=== PATIENT | male | born 1975 | race Caucasian/White ===

== ENCOUNTER 2025-06-16 10:17 | Outpatient (CLI) | payer OTHER, SELFPAY ==
[2025-06-16 10:59] VITALS: BP 85/59; PULSE 69; RESP 16; TEMP 36.8; O2SAT 100; BMI 31.1
[2025-06-16] MEDS: NORMAL SALINE 0.9% IV (11:27)
[2025-06-16] MEDS: ORITAVANCIN DIPHOSPHATE IV (11:27)
--- OUTSIDE RECORDS SUMMARY | 2025-06-16 11:28 | XMS RPT_ITS | CCD ---
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 Name Role Phone Kev Walker MD Unavailable Unavailable Amalia Loo DO Unavailable Unavailab Amalia Myers Unavailable Unavailabl Kev Albert I Unavailable Unavailable None, No PCP Unavailable Unavailable Unavailable Unavailable Cyrus Recio Referring Unavailable Cyurs Recio Attending Unavailable Jam Thapa MD Unavailable Harish QIU, [place] Primary Care Provider Charity Esquivel DO Unavailable Jose Ramirez MD Unavailable KARNIB, MOHAMAD Referring Unavailable [facility] Unavailable KARNIB, MOHAMAD Referring Un[facility] Unavailable KARNIB, MOHAMAD Referring Unavailable HARISH, [facility] Primary Care Unavailable KARNIB, MOHAMAD Referring Unavailable HARISH, [facility] Primary Care Unavailable KARNIB, MOHAMAD Referring Unavailable HARISH, [facility] Primary Care Unavailable KARNIB, MOHAMAD Referring Unavailable [facility] Care Unavailable KARNIB, MOHAMAD Referring Unavailable HARISH, ELIZEBA Primary Care Unavailable KARNIB, MOHAMAD Referring Unavailable HARISH, ELIZEBA Primary Care Unavailable HARISH, ELIZEBA Primary Care Unavailable FELY MICHELLE Admitting Unavailable GYPSY MEIER Attending UnavailMEGAN Taylor Consulting Unavailab ZACHARY Dalton Admitting Unavailable [facility] Unavailable SCOTTY HOGAN Attending Unavailable ALEX BATISTA Consulting Unavailable KARNIB, MOHAMAD Referring Unavailable [facility] Unavailable KARNIB, MOHAMAD Referring Unavailable LOUANN MOREIRA Primary Care Unavailable SADE ROSALES Referring Unavailable SADE ROSALES Attending Unavailable Medications Current Medications Medication Drug Class(es) Dates Sig (Normalized) Sig (Original) acetaminophen 500 mg oral tablet (14 sources) Start: 01-19-2025 take 2 tablets by mouth every six hours as needed acetaminophen (TYLENOL) 500 mg tablet Take 2 tablets by mouth every 6 hours as needed for pain. 01/19/2025 Active ascorbic acid 1000 mg oral tablet (20 sources) Vitamin C Ascorbic Acid (VITAMIN C) 1,000 mg tablet Take 500 mg by mouth once daily. Active atorvastatin 40 mg oral tablet (20 sources) HMG-CoA Reductase Inhibitor Start: 01-19-2025 take 1 tablet by mouth once daily at bedtime atorvastatin (LIPITOR) 40 mg tablet Take 1 tablet by mouth daily at bedtime. 90 tablet 01/19/2025 Active Start: 12-07-2021 take 1 tablet by heber th once daily atorvastatin (LIPITOR) 20 mg tablet Indications: Lipid disorder Take 1 tablet by mouth once daily. 90 tablet 3 12/07/2021 Suspended Comment on above: Take 1 tablet by heber th once daily. chlorhexidine gluconate 40 mg/ml medicated liquid soap (7 sources) Start: 01-23-20 chlorhexidine (HIBICLENS) 4 % external liquid Apply to affected area two times a week. 236 mL 1 01/23/2020 Active Comment on above: Apply to affected ar ea two times a week. cholecalciferol 0.05 mg oral tablet (20 sources) Vitamin D take 1 tablet by mouth once daily cholecalciferol (VITAMIN D-3) 50 mcg (2,000 unit) tablet Take 2,000 Units by mouth once daily. Active CPAP (20 sources) Start: 04-06-20 CPAP Change pressure to Settings 9-13 cm H2O, increase humidity, suitable mask per pt preference (Nasal pillow mask), chin strap, head gear, humidity, heated tubing (SELENA), lifetime supplies. G47.33 CHAYO 1 Device 11 04/06/2021 Suspended Start: 04-06-2021 CPAP Change pr essure to Settings 9-13 cm H2O, increase humidity, suitable mask per pt preference (Nasal pillow mask), chin strap, head gear, humidity, heated tubing (SELENA), lifetime supplies. G47.33 CHAYO 1 Device 11 04/06/2021 Active Comment on above: Change pressure to S ettings 9-13 cm H2O, increase humidity, suitable mask per pt preference (Nasal pillow mask), chin strap, head gear, humidity, heated tubing (SELENA), lifetime supplies. G47.33 CHAYO empagliflozin 10 mg oral tablet (20 sources) Sodium-Glucose Cotransporter 2 Inhibitor Start: 01-21-20 take 1 tablet by mouth once daily empagliflozin (JARDIANCE) 10 mg tablet Take 1 tablet by mouth once daily. 90 tablet 01/20/2025 Active Start: 09-26-2024 End: 10-26-2024 take 1 tablet by mouth once daily at breakfast empagliflozin (JARDIANCE) 10 mg tablet Take 1 tablet by mouth daily with breakfast. 30 tablet 09/26/2024 10/26/2024 Active empagliflozin (J ARDIANCE) 25 mg tablet Take 12.5 mg by mouth daily with breakfast. Suspended gabapentin 300 mg oral capsule (14 sources) Anti-epileptic Agent Start: 01-19-2025 End: 02-18-2025 take 1 capsule by mouth every eight hours gabapentin (NEURONTIN) 300 mg capsule Take 1 capsule by mouth every 8 hours for 30 days. 90 capsule 01/19/2025 Active hydrOXYzine hydrochloride 10 mg oral tablet (14 sources) Antihistamine Start: 01-19-2025 take 1 tablet by mouth every six hours as needed hydrOXYzine HCl (ATARAX) 10 mg tablet Take 1 tablet by mouth every 6 hours as needed for anxiety or itching/rash. 01/19/2025 Active magnesium oxide 400 mg oral tablet (14 sources) Start: 01-19-2025 take 2 tablets by mouth twice daily magnesium oxide (MAG-OX) 400 mg (241.3 mg magnesium) tablet Take 2 tablets by mouth two times a day. 01/19/2025 Active melatonin 3 mg oral tablet (14 sources) Start: 01-19-2025 melatonin 3 mg tablet 2 tablets by CORPAK route daily at bedtime. 01/19/2025 Active 24 hr metoprolol succinate 50 mg extended release oral tablet (20 sources) beta-Adrenergic Manuel Start: 12-07-2021 take 1 tablet by mouth once daily metoprolol succinate ER (TOPROL XL) 50 mg 24 hr tablet Indications: Acute on chronic systolic congestive heart failure (HCC) Take 1 tablet by mouth once daily. 90 tablet 3 12/07/2021 Active Start: 08-23-2015 take 1 tablet by heber th once daily Metoprolol Tartrate 50 MG Oral Tablet TAKE 1 TABLET EVERY 12 HOURS DAILY. Quantity: 60 Refills: 3 Ordered: 23-Aug-2015 Kev Walker MD Start : 23-Aug-2015 Active Comment on above: Take 1 tablet by heber th once daily. MULTIVITAMIN-FERROU S FUMARATE-FOLIC ACID 18 MG-400 MCG TABLET (14 sources) Start: 01-20-2025 take 1 tablet by mouth once daily MULTIVITAMIN-ANANYA US FUMARATE-FOLIC ACID 18 MG-400 MCG TABLET Take 1 tablet by mouth once daily. 01/20/2025 Active MULTIVITS-MINERALS/ FA/LYCOPENE (ONE-A-DAY MEN'S ORAL) (7 sources) MULTIVITS-MINERA LS /FA/LYCOPENE (ONE-A-DAY MEN'S ORAL) Take by mouth once daily. Active MULTIVITS-MINERA LS/FA/LYCOPENE (ONE-A-DAY MEN'S ORAL) Take by mouth once daily. 0 Active Comment on above: Take by mouth once d aily. Asbdy-9-CJV-EPA-Fish Oil 1,200 (144-216) mg cap (7 sources) Start: 11-13-19 16 take 1 tablet by mouth once daily Oytsu-6-LLV-EPA-Fis h Oil 1,200 (144-216) mg cap Take 1 tablet by mouth once daily. starting 1 week after discharge 0 11/13/2015 Active Comment on above: Take 1 tablet by heber th once daily. starting 1 week after discharge oxyCODONE hydrochloride 5 mg oral tablet (7 sources) Opioid Agonist Start: 08-26-20 21 take 1 tablet by mouth every six hours as needed oxyCODONE IR (ROXICODONE) 5 mg immediate release tablet Indications: ICD (implantable cardioverter-defibr illator) in place Take 1-2 tablets by mouth every 6 hours as needed for pain. 8 tablet 08/26/2021 Active Comment on above: Take 1-2 tablets by mouth every 6 hours as needed for pain. pantoprazole 20 mg delayed release oral tablet (14 sources) Proton Pump Inhibitor Start: 01-21-20 25 take 1 tablet by mouth once daily in the morning pantoprazole DR (PROTONIX) 20 mg tablet Take 1 tablet by mouth daily at 6 am. 01/20/2025 Active microencapsulated potassium chloride 20 meq extended release oral tablet (14 sources) Start: 01-21-20 take 1 tablet by mouth once daily potassium chloride ER (KLOR-CON) 20 mEq tablet Take 1 tablet by mouth once daily. 01/20/2025 Active sacubitril 97 mg / valsartan 103 mg oral tablet (20 sources) Angiotensin 2 Receptor Manuel Start: 10-17-19 take 1 tablet by mouth twice daily sacubitril-valsarta n (ENTRESTO) 97-103 mg tablet Indications: Acute on chronic systolic congestive heart failure (HCC) Take 1 tablet by mouth two times a day. Hold until you follow up with cardiology. Patient should start on October 17, 2024. 60 tablet 11 10/17/2024 Active Start: 10-17-2024 take 1 tablet by heber th twice daily sacubitril-valsartan (ENTRESTO) 97-103 mg tablet Indications: Acute on chronic systolic congestive heart failure (HCC) Take 1 tablet by mouth two times a day. Hold until you follow up with cardiology. Patient should start on October 17, 2024. 60 tablet 11 10/17/2024 Active Start: 12-07-2021 take 1 tablet by heber th twice daily sacubitril-valsartan (ENTRESTO) 97-103 mg tablet Indications: Acute on chronic systolic congestive heart failure (HCC) Take 1 tablet by mouth twice daily. 60 tablet 11 12/07/2021 Active take 1 tablet by heber th twice daily sacubitril-valsartan (ENTRESTO) 49-51 mg tablet Take 1 tablet by mouth two times a day. Suspended Comment on above: Take 1 tablet by heber th twice daily. sennosides, prison 8.6 mg oral tablet (14 sources) Start: 01-21-20 take 1 tablet by mouth once daily senna (SENOKOT) 8.6 mg tab Take 1 tablet by mouth once daily. 01/20/2025 Active simethicone 80 mg chewable tablet (14 sources) Start: 01-20-20 take 1 tablet by mouth every twelve hours as needed simethicone, chewable (MYLICON) 80 mg chewable tablet Take 1 tablet by mouth two times a day as needed (gas). 01/19/2025 Active spironolactone 50 mg oral tablet (20 sources) Aldosterone Antagonist Start: 01-21-20 take 1 tablet by mouth once daily spironolactone (ALDACTONE) 50 mg tablet Take 1 tablet by mouth once daily. 90 tablet 01/20/2025 Active Start: 10-17-2024 take 1 tablet by heber th once daily spironolactone (ALDACTONE) 25 mg tablet Take 1 tablet by mouth once daily. Hold until you follow up with cardiology Patient should start on October 17, 2024. 30 tablet 6 10/17/2024 Active Start: 10-17-2024 take 1 tablet by heber th once daily spironolactone (ALDACTONE) 25 mg tablet Take 1 tablet by mouth once daily. Hold until you follow up with cardiology Patient should start on October 17, 2024. 30 tablet 6 10/17/2024 Active Start: 11-25-2021 take 1 tablet by heber th once daily spironolactone (ALDACTONE) 25 mg tablet Take 1 tablet by mouth once daily. 30 tablet 6 11/25/2021 Active Comment on above: Take 1 tablet by heber th once daily. tamsulosin hydrochloride 0.4 mg oral capsule (14 sources) alpha-Adrenergic Manuel Start: 01-21-20 take 1 capsule by mouth once daily tamsulosin (FLOMAX) 0.4 mg Take 1 capsule by mouth once daily. 90 capsule 01/20/2025 Active torsemide 20 mg oral tablet (20 sources) Loop Diuretic Start: 09-26-19 End: 10-26-19 25 take 1 tablet by mouth once daily torsemide (DEMADEX) 20 mg tablet Take 1 tablet by mouth once daily. 30 tablet 09/26/2024 10/26/2024 Active traZODone hydrochloride 150 mg oral tablet (14 sources) Serotonin Reuptake Inhibitor Start: 01-20-20 25 take 0.5 tablet by mouth once daily at bedtime traZODone (DESYREL) 150 mg tablet Take 0.5 tablets by mouth daily at bedtime. 01/19/2025 Active valsartan 40 mg oral tablet (14 sources) Angiotensin 2 Receptor Manuel Start: 01-20-20 25 take 0.5 tablet by mouth twice daily valsartan (DIOVAN) 40 mg tablet Take 0.5 tablets by mouth two times a day. 90 tablet 01/19/2025 Active vitamin b12 1 mg oral tablet (20 sources) Vitamin B12 take 1 tablet by mouth once daily cyanocobalamin (VITAMIN B-12) 1,000 mcg tab Take 1,000 mcg by mouth once daily. Active warfarin sodium 4 mg oral tablet (14 sources) Vitamin K Antagonist Start: 01-20-20 take 1 tablet by mouth once daily warfarin (COUMADIN) 4 mg tablet Take 1 tablet by mouth daily as directed. 01/19/2025 Active zinc oxide 130 mg/ml topical cream (14 sources) Start: 01-20-20 End: 02-19-20 zinc oxide (DESITIN) 13 % cream Apply to affected area two times a day. 57 g 01/19/2025 Active Completed/Discontinued Medications Medication Drug Class(es) Dates Sig (Normalized) Sig (Original) amiodarone hydrochloride 200 mg oral tablet (20 sources) Antiarrhythmic Start: 10-06-2024 End: 11-09-2024 take 2 tablets by mouth once daily, then take 1 tablet by mouth once daily amiodarone (PACERONE) 200 mg tablet Take 2 tablets by mouth once daily for 4 days, THEN 1 tablet once daily. 38 tablet 10/06/2024 10/31/2024 Discontinued Start: 09-26-2024 End: 11-09-2024 take 1 tablet by mouth twice daily, then take 1 tablet by mouth once daily, then take 0.5 tablet by mouth once daily Amiodarone HCl 400 mg tablet Take 1 tablet by mouth two times a day for 7 days, THEN 1 tablet once daily for 7 days, THEN 0.5 tablets once daily. 36 tablet 09/26/2024 11/09/2024 Active take 1 tablet by heber th once daily amiodarone (PACERONE) 200 mg tablet Take 200 mg by mouth once daily. Active apixaban 5 mg oral tablet (20 sources) Factor Xa Inhibitor Start: 09-23-2024 End: 10-26-2024 take 1 tablet by mouth twice daily apixaban (ELIQUIS) 5 mg tab(s) Take 1 tablet by mouth two times a day. 60 tablet 09/23/2024 10/26/2024 Suspended aspirin 81 mg delayed release oral tablet (20 sources) Platelet Aggregation Inhibitor, Nonsteroidal Anti-inflammatory Drug Start: 10-30-2016 take 1 tablet by mouth once daily aspirin, enteric coated (ECOTRIN LOW STRENGTH) 81 mg EC tablet Take 1 tablet by mouth once daily. 0 10/30/2016 Active Start: 08-23-2015 take 1 tablet by heber th once daily Aspirin 325 MG Oral Tablet TAKE 1 TABLET DAILY. Quantity: 90 Refills: 3 Ordered: 23-Aug-2015 Kev Walker MD Start : 23-Aug-2015 Active take 1 tablet by heber th once daily aspirin 81 mg chewable tablet Take 81 mg by mouth once daily. Active Comment on above: Take 1 tablet by heber th once daily. 250 ml DOBUTamine 4 mg/ml injection (4 sources) beta-Adrenergic Agonist Start: 5 End: DOBUTamine (DOBUTREX) 1,000 mg/250 mL (4,000 mcg/mL) infusion Inject 322.25 mcg/min intravenously continuous. 10/05/2024 10/31/2024 Discontinued midodrine hydrochloride 5 mg oral tablet (4 sources) alpha-Adrenergic Agonist Start: 5 End: midodrine (PROAMITINE) 5 mg tablet Take 1 tablet by mouth three times a day. Every 4 hours 10/05/2024 10/31/2024 Discontinued multivit-minerals/foli c acid (CENTRUM ADULTS ORAL) (17 sources) take 1 tablet by mouth once daily multivit-minerals/fol ic acid (CENTRUM ADULTS ORAL) Take 1 tablet by mouth once daily. Suspended 60 actuat testosterone 20.25 mg/actuat topical gel (2 sources) Androgen Start: 4 AndroGel Pump 20.25 MG/ACT (1.62%) Transdermal Gel Quantity: 0 Refills: 0 Ordered: 14-Aug-2014 DO Start : 14-Aug-2014 Active prescribed by urologist zolpidem tartrate 10 mg oral tablet (2 sources) gamma-Aminobutyri c Acid-ergic Agonist Start: 6 take 1 tablet by mouth once daily at bedtime as needed Zolpidem Tartrate 10 MG Oral Tablet TAKE ONE TABLET BY MOUTH NIGHTLY AT BEDTIME NEEDED Quantity: 30 Refills: 0 Ordered: 13-Dec-2015 Amalia Loo DO Start : 13-Dec-2015 Active Problems Active Problems Problem Classification Problem Date Documented Da te Episodic/Chronic Cardiac dysrhythmias (20 sources) Atrial fibrillation with rapid ventricular response; Translations: [Unspecified atrial fibrillation] Onset: 09-22-2024 Resolved: 12-04-2024 09-22-2024 Chronic Cardiac dysrhythmias (2 sources) Palpitations; Translations: [Palpitations] Episodic Chronic kidney disease (20 sources) Chronic kidney disease stage 3; Translations: [Stage 3 chronic kidney disease] Onset: 10-06-2024 Resolved: 12-15-2024 10-07-2024 Chronic Chronic ulcer of skin (14 sources) Skin ulcer; Translations: [Non-pressure chronic ulcer of back with unspecified severity] Onset: 12-29-2024 12-30-2024 Chronic Conduction disorders (20 sources) Automatic implantable cardiac defibrillator in situ; Translations: [Presence of automatic (implantable) cardiac defibrillator] Onset: 09-22-2024 Resolved: 11-17-2024 09-22-2024 Chronic Congestive heart failure; nonhypertensive (20 sources) Acute on chronic combined systolic and diastolic heart failure; Translations: [Acute on chronic combined systolic (congestive) and diastolic (congestive) heart failure] Onset: 09-22-2024 Resolved: 11-24-2024 09-22-2024 Chronic Coronary atherosclerosis and other heart disease (16 sources) Ischemic myocardial dysfunction; Translations: [Ischemic cardiomyopathy] Onset: 12-22-2024 12-22-2024 Chronic Deficiency and other anemia (17 sources) Anemia; Translations: [Anemia in stage 3b chronic kidney disease (HCC)] Onset: 11-29-2024 Resolved: 12-15-2024 11-30-2024 Chronic Deficiency and other anemia (2 sources) Anemia; Translations: [Anemia, unspecified] Episodic Disorders of lipid metabolism (20 sources) Mixed hyperlipidemia; Translations: [Mixed hyperlipidemia] Onset: 11-25-2021 Resolved: 12-15-2024 11-25-2021 Chronic Essential hypertension (20 sources) Hypertensive disorder; Translations: [Essential (primary) hypertension] Onset: 11-10-2015 09-19-2021 Chronic Heart valve disorders (20 sources) Aortic valve disorder; Translations: [Aortic valve disorders] Onset: 11-10-2015 10-04-2021 Chronic Miscellaneous mental health disorders (2 sources) Insomnia; Translations: [Transient disorder of initiating or maintaining sleep] Chronic Nutritional deficiencies (17 sources) Deficiency of macronutrients; Translations: [Unspecified severe protein-calorie malnutrition] Onset: 12-04-2024 12-05-2024 Chronic Open wounds of extremities (3 sources) Laceration of hand; Translations: [Open wound of hand except finger(s) alone, without mention of complication] Resolved: 08-23-2015 Episodic Other aftercare (17 sources) Under care of palliative care physician; Translations: [Encounter for palliative care] Onset: 10-23-2024 10-23-2024 Episodic Other circulatory disease (20 sources) Left ventricular assist device present; Translations: [Presence of heart assist device] Onset: 11-16-2024 11-17-2024 Chronic Other endocrine disorders (20 sources) Male hypogonadism; Translations: [Testicular hypofunction] Onset: 01-23-2020 01-23-2020 Chronic Other gastrointestinal disorders (20 sources) Ileostomy present; Translations: [Ileostomy status] Onset: 11-13-2024 11-13-2024 Chronic Other nutritional; endocrine; and metabolic disorders (18 sources) Morbid obesity; Translations: [Morbid (severe) obesity due to excess calories] Onset: 09-23-2024 10-13-2024 Chronic Other nutritional; endocrine; and metabolic disorders (20 sources) Obese class I; Translations: [Obesity, Class I, BMI 30-34.9] Onset: 09-23-2024 Resolved: 12-15-2024 11-05-2024 Chronic Residual codes; unclassified (20 sources) Obstructive sleep apnea syndrome; Translations: [Obstructive sleep apnea (adult) (pediatric)] Onset: 11-25-2021 Resolved: 11-19-2024 11-25-2021 Chronic Unclassified (1 source) NO SHOW 03-17-2025 Past or Other Problems Problem Classification Problem Date Documented Da te Episodic/Chronic Acute and unspecified renal failure (20 sources) Acute renal failure syndrome; Translations: [Acute kidney failure, unspecified] Onset: Resolved: 09-22-2024 Episodic Acute posthemorrhagic anemia (20 sources) Acute posthemorrhagic anemia; Translations: [Acute posthemorrhagic anemia] Onset: 5 Resolved: 5 11-17-2024 Episodic Administrative/social admission (20 sources) Discharge status; Translations: [Other problems related to medical facilities and other health care] Onset: 6 Resolved: 8 09-19-2021 Episodic Alcohol-related disorders (20 sources) History of alcohol abuse; Translations: [Alcohol abuse, in remission] Onset: 5 Resolved: 5 10-05-2024 Chronic Bacterial infection; unspecified site (20 sources) Bacteremia; Translations: [Bacteremia] Onset: 5 Resolved: 5 12-03-2024 Episodic Cardiac and circulatory congenital anomalies (20 sources) Bicuspid aortic valve; Translations: [Congenital insufficiency of aortic valve] Resolved: 6 11-13-2015 Chronic Cardiac and circulatory congenital anomalies (20 sources) H/O: cardiac anomaly; Translations: [Personal history of (corrected) congenital malformations of heart and circulatory system] Onset: 6 Resolved: 5 01-23-2020 Episodic Cardiac arrest and ventricular fibrillation (20 sources) Cardiac arrest; Translations: [Cardiac arrest, cause unspecified] Onset: 5 Resolved: 5 10-22-2024 Chronic Coagulation and hemorrhagic disorders (20 sources) Thrombocytopenic disorder; Translations: [Thrombocytopenia, unspecified] Onset: 5 Resolved: 5 11-24-2024 Chronic Complication of device; implant or graft (17 sources) Infection of vascular catheter; Translations: [Infection and inflammatory reaction due to other cardiac and vascular devices, implants and grafts, initial encounter] Onset: 5 Resolved: 5 11-30-2024 Episodic Complications of surgical procedures or medical care (16 sources) Postprocedural abscess; Translations: [Infection following a procedure, other surgical site, initial encounter] Onset: 5 12-23-2024 Episodic Deficiency and other anemia (18 sources) Anemia due to multiple mechanisms; Translations: [Other specified anemias] Onset: 5 Resolved: 5 10-23-2024 Episodic Delirium, dementia, and amnestic and other cognitive disorders (20 sources) Delirium; Translations: [Delirium due to known physiological condition] Onset: 5 Resolved: 5 11-20-2024 Chronic Diabetes mellitus without complication (20 sources) Hyperglycemia; Translations: [Other abnormal glucose] Onset: 5 Resolved: 5 11-16-2024 Episodic Diseases of white blood cells (20 sources) Neutrophilia; Translations: [Other elevated white blood cell count] Onset: 4 Resolved: 5 09-22-2024 Chronic Fluid and electrolyte disorders (20 sources) Hyponatremia; Translations: [Hypo-osmolality and hyponatremia] Onset: 6 Resolved: 5 09-22-2024 Episodic Hypertension with complications and secondary hypertension (20 sources) Cardiorenal syndrome; Translations: [Hypertensive heart and chronic kidney disease without heart failure, with stage 1 through stage 4 chronic kidney disease, or unspecified chronic kidney disease] Onset: 5 Resolved: 5 10-20-2024 Chronic Nonspecific chest pain (20 sources) Chest pain; Translations: [Chest pain, unspecified] Onset: 6 Resolved: 8 11-30-2017 Episodic Open wounds of head; neck; and trunk (20 sources) Injury of buttock; Translations: [Unspecified open wound of unspecified buttock, initial encounter] Onset: 5 Resolved: 5 11-24-2024 Episodic Other aftercare (20 sources) Drug therapy finding; Translations: [Other longterm (current) drug therapy] Onset: 5 Resolved: 5 10-13-2024 Episodic Other aftercare (17 sources) Long-term current use of anticoagulant; Translations: [shelter (current) use of anticoagulants] Onset: 5 12-09-2024 Episodic Other circulatory disease (20 sources) Low blood pressure; Translations: [Hypotension, unspecified] Onset: 5 Resolved: 5 10-06-2024 Episodic Other gastrointestinal disorders (20 sources) Swollen abdomen; Translations: [Abdominal distension (gaseous)] Onset: 4 Resolved: 5 09-22-2024 Episodic Other gastrointestinal disorders (20 sources) Drug-induced constipation; Translations: [Drug induced constipation] Onset: 5 Resolved: 5 10-28-2024 Episodic Other gastrointestinal disorders (20 sources) Perforation of intestine; Translations: [Perforation of intestine (nontraumatic)] Onset: 5 Resolved: 5 11-10-2024 Episodic Other gastrointestinal disorders (20 sources) Oropharyngeal dysphagia; Translations: [Dysphagia, oropharyngeal phase] Onset: 5 Resolved: 5 11-21-2024 Episodic Other hematologic conditions (20 sources) Hematocrit - PCV - high; Translations: [Other abnormality of red blood cells] Onset: 0 Resolved: 5 06-10-2020 Episodic Other injuries and conditions due to external causes (20 sources) Open wound; Translations: [Other injury of unspecified body region, initial encounter] Onset: 5 Resolved: 5 11-22-2024 Episodic Other lower respiratory disease (20 sources) Dyspnea; Translations: [Shortness of breath] Onset: 4 Resolved: 5 09-22-2024 Episodic Other lower respiratory disease (20 sources) Snoring; Translations: [Snoring] Onset: 6 Resolved: 0 01-23-2020 Episodic Other lower respiratory disease (20 sources) Respiratory insufficiency; Translations: [Other disorders of lung] Onset: 5 Resolved: 5 11-19-2024 Episodic Other lower respiratory disease (1 source) Shortness of breath; Translations: [Shortness of breath] Onset: 5 Episodic Other nervous system disorders (20 sources) Acute postoperative pain; Translations: [Other acute postprocedural pain] Onset: 6 Resolved: 5 09-19-2021 Episodic Other nutritional; endocrine; and metabolic disorders (20 sources) Body mass index 40+ - severely obese; Translations: [Morbid (severe) obesity due to excess calories] Onset: 4 Resolved: 5 09-23-2024 Chronic Other nutritional; endocrine; and metabolic disorders (20 sources) Hyperphosphatemia; Translations: [Other disorders of phosphorus metabolism] Onset: 5 Resolved: 5 10-23-2024 Chronic Other nutritional; endocrine; and metabolic disorders (20 sources) Obese class II; Translations: [Obesity, Class II, BMI 35-39.9] Onset: 5 Resolved: 5 11-03-2024 Chronic Other screening for suspected conditions (not mental disorders or infectious disease) (20 sources) Decreased testosterone level ; Translations: [Other nonspecific findings on examination of blood] Onset: 6 Resolved: 5 09-22-2024 Episodic Lynn-; endo-; and myocarditis; cardiomyopathy (except that caused by tuberculosis or sexually transmitted disease) (20 sources) Cardiomyopathy; Translations: [Other cardiomyopathies] Onset: 2 Resolved: 5 11-25-2021 Chronic Lynn-; endo-; and myocarditis; cardiomyopathy (except that caused by tuberculosis or sexually transmitted disease) (20 sources) Pericardial effusion - noninflammatory; Translations: [Pericardial effusion (noninflammatory)] Onset: 6 Resolved: 8 11-30-2017 Episodic Peripheral and visceral atherosclerosis (20 sources) Mesenteric infarction; Translations: [Acute infarction of intestine, part and extent unspecified] Onset: 5 Resolved: 5 11-04-2024 Episodic Phlebitis; thrombophlebitis and thromboembolism (17 sources) Acute deep venous thrombosis; Translations: [Acute embolism and thrombosis of unspecified vein] Onset: 5 12-05-2024 Episodic Pleurisy; pneumothorax; pulmonary collapse (20 sources) Atelectasis; Translations: [Atelectasis] Onset: 6 Resolved: 5 09-19-2021 Episodic Residual codes; unclassified (20 sources) Sleep apnea; Translations: [Sleep apnea, unspecified] Onset: 6 Resolved: 5 07-31-2016 Chronic Residual codes; unclassified (20 sources) Hypersomnia; Translations: [Hypersomnia, unspecified] Onset: 6 Resolved: 5 07-31-2016 Chronic Residual codes; unclassified (20 sources) History of aortic valve repair; Translations: [Other specified postprocedural states] Onset: 6 Resolved: 5 07-25-2016 Episodic Residual codes; unclassified (20 sources) Edema of lower extremity; Translations: [Localized edema] Onset: 4 Resolved: 5 09-22-2024 Episodic Residual codes; unclassified (20 sources) Generalized aches and pains; Translations: [Pain, unspecified] Onset: 5 Resolved: 5 10-28-2024 Episodic Residual codes; unclassified (20 sources) 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; Translations: [Personal history of extracorporeal membrane oxygenation (ECMO)] Onset: 5 Resolved: 5 11-16-2024 Episodic Respiratory failure; insufficiency; arrest (adult) (20 sources) Ventilator finding; Translations: [Dependence on respirator [ventilator] status] Onset: 6 Resolved: 5 09-19-2021 Chronic Shock (20 sources) Cardiogenic shock; Translations: [Cardiogenic shock] Onset: 5 Resolved: 5 10-05-2024 Episodic Unclassified (20 sources) SUMMARY Onset: 6 Resolved: 8 09-19-2021 NEGATED: Highlighted row has not occurred!Residual codes; unclassified (1 source) Disease Episodic Results Test Name Value Interpretation Reference Range Facility [facility] 06-12-2025 [facility] [place] 06-10-2025 [facility] [place] 06-08-2025 [facility] [place] 06-05-2025 [facility] [place] 06-03-2025 [facility] [place] 06-01-2025 [facility] [place] 05-29-2025 [facility] [place] 05-27-2025 [facility] CNOVon 05-22-2025 [facility] CNOVon 05-12-2025 [facility] CNPNon 04-14-2025 [facility] CARDIAC IMPLANTABLE DEVICE C HECKOrdered By: Gissell Yeh on 12-27-2024 Battery Remaining Percentage 62 [facility] Work Phone: Battery Status SULMA [facility] Work Phone: Date Time Interrogation Session [phone] [facility] Work Phone: Implantable Lead Connection Status Connected [facility] Work Phone: Implantable Lead Implant Date [id number] [facility] Work Phone: Implantable Lead Er [employer] [facility] Work Phone: Implantable Lead Model 3501 EMBLEM S-ICD Electrode [facility] Work Phone: Implantable Lead Serial Number [id number] [facility] Work Phone: Implantable Pulse Generator Implant Date 20210826 [facility] Work Phone: Implantable Pulse Generator [employer] [facility] Work Phone: Implantable Pulse Generator Model A219 [facility] Work Phone: Implantable Pulse Generator Serial Number [id number] [facility] Work Phone: Implantable Pulse Generator Type Defibrillator [facility] Work Phone: Rate 1 200 [facility] Work Phone: Therapies 80J [facility] Work Phone: Therapy Statistic Recent Shocks Delivered 0 [facility] Work Phone: Type Interrogation Session In Clinic [facility] Work Phone: Zone ID 2 [facility] Work Phone: Zone Setting Status On [facility] Work Phone: Zone Setting Type Category Conditional [facility] Work Phone: [facility] Work Phone: CARDIAC IMPLANTABLE DEVICE Lou Sofia 12-27-2024 Perioperative Check * Post-operative device interrogation performed * Device reprogrammed: Y Additional Notes: ICD turned back ON NOTE TO PROVIDERS: Cardiac Implanted Devices" Flowsheets contain detailed Programming and Evaluation data. Full Docket/PDF found below under "Scanned Documents". Gissell Baxter MD - 12/27/2024 Perioperative Check * Post-operative device interrogation performed * Device reprogrammed: Y Additional Notes: ICD turned back ON NOTE TO PROVIDERS: Cardiac Implanted Devices" Flowsheets contain detailed Programming and Evaluation data. Full Docket/PDF found below under "Scanned Documents". [facility] XR SURGICAL COUNTon 11-06-19 IMPRESSION: No radiopaque foreign bodies identified. COMMUNICATION: Communicated with RONNI HANCOCK on 11/06/2024 5:44 PM via verbal communication. [employer] Planner: PSCSelena Transcribe Date/Time: Nov 06 2024 5:36P Dictated by : EDDY BLANKENSHIP MD This examination was interpreted and the report reviewed and electronically signed by: EDDY BLANKENSHIP MD on Nov 06 2024 5:44PM [facility] * * *Final Report* * * DATE OF EXAM: Nov 06 2024 5:34PM JIX 5393 - XR SURGICAL COUNT -NB / PROCEDURE REASON: r/o fb * * * * Physician Interpretation * * * * EXAMINATION: XR SURGICAL COUNT -NB HISTORY: r/o fb. TECHNIQUE: XR SURGICAL COUNT -NB Laterality: Not applicable Number of different views (projections): 1 M: XB_1 COMPARISON: None RESULT/ DIVISION OF RADIOLOGY Provider, [facility] - 11/06/2024 * * *Final Report* * * DATE OF EXAM: Nov 06 2024 5:34PM JIX 5393 - XR SURGICAL COUNT -NB / PROCEDURE REASON: r/o fb * * * * Physician Interpretation * * * * EXAMINATION: XR SURGICAL COUNT -NB HISTORY: r/o fb. TECHNIQUE: XR SURGICAL COUNT -NB Laterality: Not applicable Number of different views (projections): 1 M: XB_1 COMPARISON: None RESULT/ IMPRESSION IMPRESSION: No radiopaque foreign bodies identified. COMMUNICATION: Communicated with RONNI HANCOCK on 11/06/2024 5:44 PM via verbal communication. [employer] Planner: PSCSelena Transcribe Date/Time: Nov 06 2024 5:36P Dictated by : EDDY BLANKENSHIP MD This examination was interpreted and the report reviewed and electronically signed by: EDDY BLANKENSHIP MD on Nov 06 2024 5:44PM EST [facility] Radiology Study observation (narrative) [facility] XR SURGICAL COUNTOrdered By: Ccf Provider on 11-06-2024 [facility] CARDIAC IMPLANTABLE DEVICE C HECKOrdered By: Sandro Resendiz on 10-31-2024 Battery Remaining Percentage 64 [facility] Work Phone: Battery Status SULMA [facility] Work Phone: Date Time Interrogation Session [facility] Work Phone: Implantable Lead Connection Status Connected [facility] Work Phone: Implantable Lead Implant Date [id number] [facility] Work Phone: Implantable Lead Er [employer] [facility] Work Phone: Implantable Lead Model 3501 EMBLEM S-ICD Electrode [facility] Work Phone: Implantable Lead Serial Number [id number] [facility] Work Phone: Implantable Pulse Generator Implant Date 20210826 [facility] Work Phone: Implantable Pulse Generator [employer] [facility] Work Phone: Implantable Pulse Generator Model A219 [facility] Work Phone: Implantable Pulse Generator Serial Number [id number] [facility] Work Phone: Implantable Pulse Generator Type Defibrillator [facility] Work Phone: Rate 1 200 [facility] Work Phone: Therapies 80J [facility] Work Phone: Therapy Statistic Recent Shocks Delivered 0 [facility] Work Phone: Type Interrogation Session In Clinic [facility] Work Phone: Zone ID 2 [facility] Work Phone: Zone Setting Status On [facility] Work Phone: Zone Setting Type Category Conditional [facility] Work Phone: [facility] Work Phone: CARDIAC IMPLANTABLE DEVICE Lou Sofia 10-31-2024 Sandro Resendiz M D - 10/31/2024 In-Office Device Evaluation * Device type: S-ICD at bedside J32 * Presenting Rhythm: AF controlled VR * Battery Status: Battery is at Battery is at 64%. * Atrial Arrhythmias: Frequent irregular episodes; strips and live tele indicated AF. . Anticoagulants listed: Eliquis recently started for home meds per patient. * Ventricular Arrhythmias: No new V detections in the last 11 months since interrogated. * Lead Measurements: Lead impedance normal. ECG waveform clean with good R:T ratio. * Programming Changes Made Today: None * Follow Up[facility] NOTE TO PROVIDERS: Cardiac Implanted Devices" Flowsheets contain detailed Programming and Evaluation data. Full Docket/PDF found below under "Scanned Documents". [facility] CASE MANAGEMon 10-05-2024 CASE MANAGEM Normal [facility] CBC panel Auto (Bld)on 10-05 Erythrocyte distribution width (RBC) [Ratio] 13.2 % Normal 11.5-15.0 [facility] Comment on above: Order Comment: Speci men Type: BLOOD SPECIMENOrdering Facility: [facility] Address: [address] [place] [address] Performed By: #### 5 8410-2 ####HOLT LABORATORYCLIA [id number] [place] [address] [place] Hematocrit (Bld) [Volume fraction] 41.3 % Normal 39.0-51.0 [facility] Comment on above: Order Comment: Speci men Type: BLOOD SPECIMENOrdering Facility: [facility] Address: [address] [place] [address] Performed By: #### 5 8410-2 ####HOLT LABORATORYCLIA [id number] [address] Hemoglobin (Bld) [Mass/Vol] 13.5 g/dL Normal 13.0-17.0 [facility] Comment on above: Order Comment: Speci men Type: BLOOD SPECIMENOrdering Facility: [facility] Address: [address] [place] [address] Performed By: #### 5 8410-2 ####HOLT LABORATORYCLIA [id number] [address] MCH (RBC) [Entitic mass] 30.4 pg Normal 26.0-34.0 [facility] Comment on above: Order Comment: Speci men Type: BLOOD SPECIMENOrdering Facility: [facility] Address: [address] [place] [address] Performed By: #### 5 8410-2 ####HOLT LABORATORYCLIA [id number] [address] MCHC (RBC) [Mass/Vol] 32.7 g/dL Normal 30.5-36.0 [facility] Comment on above: Order Comment: Speci men Type: BLOOD SPECIMENOrdering Facility: [facility] Address: [address] [place] [address] Performed By: #### 5 8410-2 ####HOLT LABORATORYCLIA [id number] [address] MCV (RBC) [Entitic vol] 93.0 fL Normal 80.0-100.0 [facility] Comment on above: Order Comment: Speci men Type: BLOOD SPECIMENOrdering Facility: [facility] Address: [address] [place] [address] Performed By: #### 5 8410-2 ####HOLT LABORATORYCLIA [id number] [address] Nucleated RBC (Bld) [#/Vol] 10*3/uL Normal <0.01 [facility] Comment on above: Order Comment: Speci men Type: BLOOD SPECIMENOrdering Facility: [facility] Address: [address] [place] [address] Performed By: #### 5 8410-2 ####HOLT LABORATORYCLIA [id number] [place] [id number] [place] Platelet mean volume (Bld) [Entitic vol] 11.8 fL Normal 9.0-12.7 [facility] Comment on above: Order Comment: Speci men Type: BLOOD SPECIMENOrdering Facility: [facility] Address: [address] [place] [address] Performed By: #### 5 8410-2 ####HOLT LABORATORYCLIA [id number] [place] [address] [place] Platelets (Bld) [#/Vol] 172 10*3/uL Normal 150-400 [facility] Comment on above: Order Comment: Speci men Type: BLOOD SPECIMENOrdering Facility: [facility] Address: [address] [place] [address] Performed By: #### 5 8410-2 ####[facility] LABORATORYCLIA [id number] [place] [address] [place] RBC (Bld) [#/Vol] 4.44 10*6/uL Normal 4.20-6.00 [facility] Comment on above: Order Comment: Speci men Type: BLOOD SPECIMENOrdering Facility: [facility] Address: [address] [place] [address] Performed By: #### 5 8410-2 ####[facility] LABORATORYCLIA [id number] [place] [address] [place] WBC (Bld) [#/Vol] 8.43 10*3/uL Normal 3.70-11.00 [facility] Comment on above: Order Comment: Speci men Type: BLOOD SPECIMENOrdering Facility: [facility] Address: [address] [place] [address] Performed By: #### 5 8410-2 ####HOLT LABORATORYCLIA [id number] [place] [id number] [facility] [place] CNDSon 10-05-2024 CNDS [facility] CONSULT PROGon 10-05-2024 CONSULT PROG [facility] Comprehensive metabolic 2000 panelon 10-05-2024 Albumin [Mass/Vol] 4.1 g/dL Normal 3.9-4.9 [facility] Comment on above: Order Comment: Speci men Type: BLOOD SPECIMENOrdering Facility: [facility] Address: [address] [place] [address] Performed By: #### 2 4323-8 ####HOLT LABORATORYCLIA [id number] [place] [address] [place] ALP [Catalytic activity/Vol] 68 U/L Normal 38-113 [facility] Comment on above: Order Comment: Speci men Type: BLOOD SPECIMENOrdering Facility: [facility] Address: [address] [place] [address] Performed By: #### 2 4323-8 ####HOLT LABORATORYCLIA [id number] [address] [place] ALT [Catalytic activity/Vol] 19 U/L Normal 10-54 [facility] Comment on above: Order Comment: Speci men Type: BLOOD SPECIMENOrdering Facility: [facility] Address: [address] [place] [address] Performed By: #### 2 4323-8 ####HOLT LABORATORYCLIA [id number] [place] [address] [place] Anion gap [Moles/Vol] 17 mmol/L High 8-15 [facility] Comment on above: Order Comment: Speci men Type: BLOOD SPECIMENOrdering Facility: [facility] Address: [address] [place] [address] Performed By: #### 2 4323-8 ####HOLT LABORATORYCLIA [id number] [place] [address] [place] AST [Catalytic activity/Vol] 26 U/L Normal 14-40 [facility] Comment on above: Order Comment: Speci men Type: BLOOD SPECIMENOrdering Facility: [facility] Address: [address] [place] [address] Performed By: #### 2 4323-8 ####HOLT LABORATORYCLIA [id number] [place] [address] [place] Bilirubin [Mass/Vol] 1.7 mg/dL High 0.2-1.3 [facility] Comment on above: Order Comment: Speci men Type: BLOOD SPECIMENOrdering Facility: [facility] Address: [address] [place] [address] Performed By: #### 2 4323-8 ####HOLT LABORATORYCLIA [id number] [place] [address] [place] Calcium [Mass/Vol] 9.6 mg/dL Normal 8.5-10.2 [facility] Comment on above: Order Comment: Speci men Type: BLOOD SPECIMENOrdering Facility: [facility] Address: [address] [place] [address] Performed By: #### 2 4323-8 ####HOLT LABORATORYCLIA [id number] [place] [address] [place] Chloride [Moles/Vol] 98 mmol/L Normal 98-107 [facility] Comment on above: Order Comment: Speci men Type: BLOOD SPECIMENOrdering Facility: [facility] Address: [address] [place] [address] Performed By: #### 2 4323-8 ####HOLT LABORATORYCLIA [id number] [place] [address] [place] CO2 [Moles/Vol] 21 mmol/L Low 22-30 [facility] Comment on above: Order Comment: Speci men Type: BLOOD SPECIMENOrdering Facility: [facility] Address: [address] [place] [address] Performed By: #### 2 4323-8 ####HOLT LABORATORYCLIA [id number] [place] [address] [place] Creatinine [Mass/Vol] 2.07 mg/dL High 0.73-1.22 [facility] Comment on above: Order Comment: Speci men Type: BLOOD SPECIMENOrdering Facility: [facility] Address: [address] [place] [address] Performed By: #### 2 4323-8 ####HOLT LABORATORYCLIA [id number] [place] [address] [place] Creatinine and Glomerular filtration rate.predicted panel (S/P/Bld) 39 mL/min/1.73m??? Low >=60 [facility] Comment on above: Order Comment: Sigrid zepeda Type: BLOOD SPECIMENOrdering Facility: [facility] Address: [address] [place] [id number] Result Comment: Gabby mated Glomerular Filtration Rate (eGFR) is calculated using the 2020 CKD-EPI creatinine equation. This equation utilizes serum creatinine, sex, and age as parameters. The creatinine assay has traceable calibration to isotope dilution-mass spectrometry. Refer to KDIGO guidelines for clinical interpretation. In patients with unstable renal function, e.g. those with acute kidney injury, the eGFR may not accurately reflect actual GFR. Performed By: #### 2 4323-8 ####[facility] LABORATORYCLIA [id number] [place] [id number] [place] Glucose [Mass/Vol] 121 mg/dL High 74-99 [facility] Comment on above: Order Comment: Sigrid zepeda Type: BLOOD SPECIMENOrdering Facility: [facility] Address: [address] [place] [address] Result Comment: The [place] Diabetes Association (ADA) provides guidance for cutoff values for fasting glucose and random glucose. The ADA defines fasting as no caloric intake for at least 8 hours. Fasting plasma glucose results between 100 to 125 mg/dL indicate increased risk for diabetes (prediabetes).Fasting plasma glucose results greater than or equal to 126 mg/dL meet the criteria for diagnosis of diabetes. In the absence of unequivocal hyperglycemia, results should be confirmed by repeat testing. In a patient with classic symptoms of hyperglycemia or hyperglycemic crisis, random plasma glucose results greater than or equal to 200 mg/dL meet the criteria for diagnosis of diabetes.Reference: Standards of Medical Care in Diabetes 2016, [place] [employer] Association. Diabetes Care. 2016.39(Suppl 1). Performed By: #### 2 4323-8 ####[facility] LABORATORYCLIA [id number] [place] [address] [place] Potassium [Moles/Vol] 3.9 mmol/L Normal 3.7-5.1 [facility] Comment on above: Order Comment: Sigrid zepeda Type: BLOOD SPECIMENOrdering Facility: [facility] Address: [address] [place] [id number] Performed By: #### 2 4323-8 ####HOLT LABORATORYCLIA [id number] [address] [place] [facility] Protein [Mass/Vol] 6.4 g/dL Normal 6.3-8.0 [facility] Comment on above: Order Comment: Speci men Type: BLOOD SPECIMENOrdering Facility: [facility] Address: [address] [place] [address] Performed By: #### 2 4323-8 ####HOLT LABORATORYCLIA [id number] [address] [place] Sodium [Moles/Vol] 136 mmol/L Normal 136-144 [facility] Comment on above: Order Comment: Speci men Type: BLOOD SPECIMENOrdering Facility: [facility] Address: [address] [place] [address] Performed By: #### 2 4323-8 ####HOLT LABORATORYCLIA [id number] [address] [place] Urea nitrogen [Mass/Vol] 41 mg/dL High 9-24 [facility] Comment on above: Order Comment: Speci men Type: BLOOD SPECIMENOrdering Facility: [facility] Address: [address] [place] [address] Performed By: #### 2 4323-8 ####HOLT LABORATORYCLIA [id number] [address] [place] CBC panel Auto (Bld)on 10-04 Erythrocyte distribution width (RBC) [Ratio] 13.1 % Normal 11.5-15.0 [facility] Comment on above: Order Comment: Speci men Type: BLOOD SPECIMENOrdering Facility: [facility] Address: [address] [place] [address] Performed By: #### 5 8410-2 ####HOLT LABORATORYCLIA [id number] [address] Hematocrit (Bld) [Volume fraction] 39.4 % Normal 39.0-51.0 [facility] Comment on above: Order Comment: Speci men Type: BLOOD SPECIMENOrdering Facility: [facility] Address: [address] [place], [place] [id number] Performed By: #### 5 8410-2 ####HOLT LABORATORYCLIA [id number] [address] Hemoglobin (Bld) [Mass/Vol] 13.1 g/dL Normal 13.0-17.0 [facility] Comment on above: Order Comment: Speci men Type: BLOOD SPECIMENOrdering Facility: [facility] Address: [address] [place] [address] Performed By: #### 5 8410-2 ####HOLT LABORATORYCLIA [id number] [address] MCH (RBC) [Entitic mass] 30.8 pg Normal 26.0-34.0 [facility] Comment on above: Order Comment: Speci men Type: BLOOD SPECIMENOrdering Facility: [facility] Address: [address] [place] [address] Performed By: #### 5 8410-2 ####HOLT LABORATORYCLIA [id number] [address] MCHC (RBC) [Mass/Vol] 33.2 g/dL Normal 30.5-36.0 [facility] Comment on above: Order Comment: Speci men Type: BLOOD SPECIMENOrdering Facility: [facility] Address: [address] [place] [address] Performed By: #### 5 8410-2 ####HOLT LABORATORYCLIA [id number] [address] MCV (RBC) [Entitic vol] 92.7 fL Normal 80.0-100.0 [facility] Comment on above: Order Comment: Speci men Type: BLOOD SPECIMENOrdering Facility: [facility] Address: [address] [place] [address] Performed By: #### 5 8410-2 ####HOLT LABORATORYCLIA [id number] [address] Nucleated RBC (Bld) [#/Vol] 10*3/uL Normal <0.01 [facility] Comment on above: Order Comment: Speci men Type: BLOOD SPECIMENOrdering Facility: [facility] Address: [address] [facility] [place] [address] Performed By: #### 5 8410-2 ####HOLT LABORATORYCLIA [id number] [address] [place] Platelet mean volume (Bld) [Entitic vol] 12.0 fL Normal 9.0-12.7 [facility] Comment on above: Order Comment: Speci men Type: BLOOD SPECIMENOrdering Facility: [facility] Address: [address] [place] [address] Performed By: #### 5 8410-2 ####HOLT LABORATORYCLIA [id number] [place] [address] [place] Platelets (Bld) [#/Vol] 152 10*3/uL Normal 150-400 [facility] Comment on above: Order Comment: Speci men Type: BLOOD SPECIMENOrdering Facility: [facility] Address: [address] [place] [address] Performed By: #### 5 8410-2 ####HOLT LABORATORYCLIA [id number] [place] [address] [place] RBC (Bld) [#/Vol] 4.25 10*6/uL Normal 4.20-6.00 [facility] Comment on above: Order Comment: Speci men Type: BLOOD SPECIMENOrdering Facility: [facility] Address: [address] [place] [address] Performed By: #### 5 8410-2 ####HOLT LABORATORYCLIA [id number] [place] [address] [place] WBC (Bld) [#/Vol] 8.26 10*3/uL Normal 3.70-11.00 [facility] Comment on above: Order Comment: Speci men Type: BLOOD SPECIMENOrdering Facility: [facility] Address: [address] [place] [address] Performed By: #### 5 8410-2 ####HOLT LABORATORYCLIA [id number] [address] [place] CONSULT PROGon 10-04-2024 CONSULT PROG Normal [facility] CONSULT PROG Normal [facility] Comprehensive metabolic 2000 panelon 10-04-2024 Albumin [Mass/Vol] 4.1 g/dL Normal 3.9-4.9 [facility] Comment on above: Order Comment: Speci men Type: BLOOD SPECIMENOrdering Facility: [facility] Address: [address] [place] [address] Performed By: #### 2 4323-8 ####HOLT LABORATORYCLIA [id number] [place] [address] [place] ALP [Catalytic activity/Vol] 63 U/L Normal 38-113 [facility] Comment on above: Order Comment: Speci men Type: BLOOD SPECIMENOrdering Facility: [facility] Address: [facility] [place] [address] Performed By: #### 2 4323-8 ####HOLT LABORATORYCLIA [id number] [address] [place] [facility] ALT [Catalytic activity/Vol] 20 U/L Normal 10-54 [facility] Comment on above: Order Comment: Speci men Type: BLOOD SPECIMENOrdering Facility: [facility] Address: [address] [place] [address] Performed By: #### 2 4323-8 ####HOLT LABORATORYCLIA [id number] [place] [address] [place] [facility] Anion gap [Moles/Vol] 14 mmol/L Normal 8-15 [facility] Comment on above: Order Comment: Speci men Type: BLOOD SPECIMENOrdering Facility: [facility] Address: [address] [place] [address] Performed By: #### 2 4323-8 ####HOLT LABORATORYCLIA [id number] [place] [address] [place] AST [Catalytic activity/Vol] 31 U/L Normal 14-40 [facility] Comment on above: Order Comment: Speci men Type: BLOOD SPECIMENOrdering Facility: [facility] Address: [address] [place] [address] Performed By: #### 2 4323-8 ####HOLT LABORATORYCLIA [id number] [place] [address] [place] Bilirubin [Mass/Vol] 1.4 mg/dL High 0.2-1.3 [facility] Comment on above: Order Comment: Speci men Type: BLOOD SPECIMENOrdering Facility: [facility] Address: [address] [place] [address] Performed By: #### 2 4323-8 ####HOLT LABORATORYCLIA [id number] [place] [address] [place] Calcium [Mass/Vol] 9.3 mg/dL Normal 8.5-10.2 [facility] Comment on above: Order Comment: Speci men Type: BLOOD SPECIMENOrdering Facility: [facility] Address: [address] [place] [address] Performed By: #### 2 4323-8 ####HOLT LABORATORYCLIA [id number] [place] [address] [place] Chloride [Moles/Vol] 99 mmol/L Normal 98-107 [facility] Comment on above: Order Comment: Speci men Type: BLOOD SPECIMENOrdering Facility: [facility] Address: [address] [place] [address] Performed By: #### 2 4323-8 ####HOLT LABORATORYCLIA [id number] [place] [address] [place] CO2 [Moles/Vol] 24 mmol/L Normal 22-30 [facility] Comment on above: Order Comment: Speci men Type: BLOOD SPECIMENOrdering Facility: [facility] Address: [address] [place] [address] Performed By: #### 2 4323-8 ####HOLT LABORATORYCLIA [id number] [place] [address] [place] Creatinine [Mass/Vol] 2.28 mg/dL High 0.73-1.22 [facility] Comment on above: Order Comment: Speci men Type: BLOOD SPECIMENOrdering Facility: [facility] Address: [address] [place] [address] Performed By: #### 2 4323-8 ####HOLT LABORATORYCLIA [id number] [place] [address] [place] Creatinine and Glomerular filtration rate.predicted panel (S/P/Bld) 34 mL/min/1.73m??? Low >=60 [facility] Comment on above: Order Comment: Sigrid zepeda Type: BLOOD SPECIMENOrdering Facility: [facility] Address: [address] [place] [address] Result Comment: Gabby mated Glomerular Filtration Rate (eGFR) is calculated using the 2020 CKD-EPI creatinine equation. This equation utilizes serum creatinine, sex, and age as parameters. The creatinine assay has traceable calibration to isotope dilution-mass spectrometry. Refer to KDIGO guidelines for clinical interpretation. In patients with unstable renal function, e.g. those with acute kidney injury, the eGFR may not accurately reflect actual GFR. Performed By: #### 2 4323-8 ####HOLT LABORATORYCLIA [id number] [place] [id number] [place] Glucose [Mass/Vol] 102 mg/dL High 74-99 [facility] Comment on above: Order Comment: Sigrid zepeda Type: BLOOD SPECIMENOrdering Facility: [facility] Address: [address] [place] [address] Result Comment: The [place] Diabetes [employer] (ADA) provides guidance for cutoff values for fasting glucose and random glucose. The ADA defines fasting as no caloric intake for at least 8 hours. Fasting plasma glucose results between 100 to 125 mg/dL indicate increased risk for diabetes (prediabetes).Fasting plasma glucose results greater than or equal to 126 mg/dL meet the criteria for diagnosis of diabetes. In the absence of unequivocal hyperglycemia, results should be confirmed by repeat testing. In a patient with classic symptoms of hyperglycemia or hyperglycemic crisis, random plasma glucose results greater than or equal to 200 mg/dL meet the criteria for diagnosis of diabetes.Reference: Standards of Medical Care in Diabetes 2016, [place] [employer]. Diabetes Care. 2016.39(Suppl 1). Performed By: #### 2 4323-8 ####HOLT LABORATORYCLIA [id number] [place] [id number] [place] Potassium [Moles/Vol] 4.0 mmol/L Normal 3.7-5.1 [facility] Comment on above: Order Comment: Sigrid zepeda Type: BLOOD SPECIMENOrdering Facility: [facility] Address: [address] [place] [address] Performed By: #### 2 4323-8 ####HOLT LABORATORYCLIA [id number] [address] Protein [Mass/Vol] 6.3 g/dL Normal 6.3-8.0 [facility] Comment on above: Order Comment: Speci men Type: BLOOD SPECIMENOrdering Facility: [facility] Address: [address] [place] [address] Performed By: #### 2 4323-8 ####HOLT LABORATORYCLIA [id number] [place] [address] [place] Sodium [Moles/Vol] 137 mmol/L Normal 136-144 [facility] Comment on above: Order Comment: Speci men Type: BLOOD SPECIMENOrdering Facility: [facility] Address: [address] [place] [address] Performed By: #### 2 4323-8 ####HOLT LABORATORYCLIA [id number] [address] [place] Urea nitrogen [Mass/Vol] 52 mg/dL High 9-24 [facility] Comment on above: Order Comment: Speci men Type: BLOOD SPECIMENOrdering Facility: [facility] Address: [address] [place] [address] Performed By: #### 2 4323-8 ####HOLT LABORATORYCLIA [id number] [address] [place] ANES POSTPROC EVALon 025 ANES POSTPROC EVAL Normal [facility] ANES PRE-OPon 10-03-2024 ANES PRE-OP Normal [facility] CASE MANAGEMon 10-03-2024 CASE MANAGEM Normal [facility] CBC panel Auto (Bld)on 10-03 Erythrocyte distribution width (RBC) [Ratio] 13.0 % Normal 11.5-15.0 [facility] Comment on above: Order Comment: Speci men Type: BLOOD SPECIMENOrdering Facility: [facility] Address: [address] [place] [address] Performed By: #### 5 8410-2 ####HOLT LABORATORYCLIA [id number] [address] Hematocrit (Bld) [Volume fraction] 40.0 % Normal 39.0-51.0 [facility] Comment on above: Order Comment: Speci men Type: BLOOD SPECIMENOrdering Facility: [facility] Address: [address] [place] [address] Performed By: #### 5 8410-2 ####HOLT LABORATORYCLIA [id number] [address] [place] Hemoglobin (Bld) [Mass/Vol] 13.4 g/dL Normal 13.0-17.0 [facility] Comment on above: Order Comment: Speci men Type: BLOOD SPECIMENOrdering Facility: [facility] Address: [address] [place] [address] Performed By: #### 5 8410-2 ####HOLT LABORATORYCLIA [id number] [address] MCH (RBC) [Entitic mass] 30.7 pg Normal 26.0-34.0 [facility] Comment on above: Order Comment: Speci men Type: BLOOD SPECIMENOrdering Facility: [facility] Address: [address] [place] [address] Performed By: #### 5 8410-2 ####HOLT LABORATORYCLIA [id number] [address] MCHC (RBC) [Mass/Vol] 33.5 g/dL Normal 30.5-36.0 [facility] Comment on above: Order Comment: Speci men Type: BLOOD SPECIMENOrdering Facility: [facility] Address: [address] [place] [address] Performed By: #### 5 8410-2 ####HOLT LABORATORYCLIA [id number] [address] MCV (RBC) [Entitic vol] 91.5 fL Normal 80.0-100.0 [facility] Comment on above: Order Comment: Speci men Type: BLOOD SPECIMENOrdering Facility: [facility] Address: [address] [place] [address] Performed By: #### 5 8410-2 ####HOLT LABORATORYCLIA [id number] [place] [address] [place] Nucleated RBC (Bld) [#/Vol] 10*3/uL Normal <0.01 [facility] Comment on above: Order Comment: Speci men Type: BLOOD SPECIMENOrdering Facility: [facility] Address: [address] [place] [address] Performed By: #### 5 8410-2 ####HOLT LABORATORYCLIA [id number] [place] [address] [place] Platelet mean volume (Bld) [Entitic vol] 11.7 fL Normal 9.0-12.7 [facility] Comment on above: Order Comment: Speci men Type: BLOOD SPECIMENOrdering Facility: [facility] Address: [address] [place] [address] Performed By: #### 5 8410-2 ####HOLT LABORATORYCLIA [id number] [address] [place] Platelets (Bld) [#/Vol] 163 10*3/uL Normal 150-400 [facility] Comment on above: Order Comment: Speci men Type: BLOOD SPECIMENOrdering Facility: [facility] Address: [address] [place] [address] Performed By: #### 5 8410-2 ####HOLT LABORATORYCLIA [id number] [place] [address] [place] RBC (Bld) [#/Vol] 4.37 10*6/uL Normal 4.20-6.00 [facility] Comment on above: Order Comment: Speci men Type: BLOOD SPECIMENOrdering Facility: [facility] Address: [address] [place] [address] Performed By: #### 5 8410-2 ####HOLT LABORATORYCLIA [id number] [address] [place] WBC (Bld) [#/Vol] 7.42 10*3/uL Normal 3.70-11.00 [facility] Comment on above: Order Comment: Speci men Type: BLOOD SPECIMENOrdering Facility: [facility] Address: [address] [facility] [place] [address] Performed By: #### 5 8410-2 ####HOLT LABORATORYCLIA [id number] [place] [address] [place] CONSULT PROGon 10-03-2024 CONSULT PROG Normal [facility] CONSULT PROG Normal [facility] Comprehensive metabolic 2000 panelon 10-03-2024 Albumin [Mass/Vol] 3.9 g/dL Normal 3.9-4.9 [facility] Comment on above: Order Comment: Speci men Type: BLOOD SPECIMENOrdering Facility: [facility] Address: [address] [place] [address] Performed By: #### 2 4323-8 ####HOLT LABORATORYCLIA [id number] [address] [place] ALP [Catalytic activity/Vol] 65 U/L Normal 38-113 [facility] Comment on above: Order Comment: Speci men Type: BLOOD SPECIMENOrdering Facility: [facility] Address: [address] [place] [address] Performed By: #### 2 4323-8 ####HOLT LABORATORYCLIA [id number] [address] [place] ALT [Catalytic activity/Vol] 22 U/L Normal 10-54 [facility] Comment on above: Order Comment: Speci men Type: BLOOD SPECIMENOrdering Facility: [facility] Address: [address] [place] [address] Performed By: #### 2 4323-8 ####HOLT LABORATORYCLIA [id number] [place] [address] [place] Anion gap [Moles/Vol] 15 mmol/L Normal 8-15 [facility] Comment on above: Order Comment: Speci men Type: BLOOD SPECIMENOrdering Facility: [facility] Address: [address] [place] [address] Performed By: #### 2 4323-8 ####HOLT LABORATORYCLIA [id number] [place] [address] [place] AST [Catalytic activity/Vol] 27 U/L Normal 14-40 [facility] Comment on above: Order Comment: Speci men Type: BLOOD SPECIMENOrdering Facility: [facility] Address: [address] [place] [address] Performed By: #### 2 4323-8 ####HOLT LABORATORYCLIA [id number] [place] [address] [place] Bilirubin [Mass/Vol] 1.5 mg/dL High 0.2-1.3 [facility] Comment on above: Order Comment: Speci men Type: BLOOD SPECIMENOrdering Facility: [facility] Address: [address] [place] [address] Performed By: #### 2 4323-8 ####HOLT LABORATORYCLIA [id number] [place] [address] [place] Calcium [Mass/Vol] 9.4 mg/dL Normal 8.5-10.2 [facility] Comment on above: Order Comment: Speci men Type: BLOOD SPECIMENOrdering Facility: [facility] Address: [address] [place] [address] Performed By: #### 2 4323-8 ####HOLT LABORATORYCLIA [id number] [place] [address] [place] Chloride [Moles/Vol] 98 mmol/L Normal 98-107 [facility] Comment on above: Order Comment: Speci men Type: BLOOD SPECIMENOrdering Facility: [facility] Address: [address] [place] [address] Performed By: #### 2 4323-8 ####HOLT LABORATORYCLIA [id number] [place] [address] [place] CO2 [Moles/Vol] 20 mmol/L Low 22-30 [facility] Comment on above: Order Comment: Speci men Type: BLOOD SPECIMENOrdering Facility: [facility] Address: [address] [place] [address] Performed By: #### 2 4323-8 ####HOLT LABORATORYCLIA [id number] [place] [address] [place] Creatinine [Mass/Vol] 3.10 mg/dL High 0.73-1.22 [facility] Comment on above: Order Comment: Speci men Type: BLOOD SPECIMENOrdering Facility: [facility] Address: [address] [place] [address] Performed By: #### 2 4323-8 ####HOLT LABORATORYCLIA [id number] [place] [address] [place] Creatinine and Glomerular filtration rate.predicted panel (S/P/Bld) 24 mL/min/1.73m??? Low >=60 [facility] Comment on above: Order Comment: Sigrid zepeda Type: BLOOD SPECIMENOrdering Facility: [facility] Address: [address] [place] [address] Result Comment: Gabby mated Glomerular Filtration Rate (eGFR) is calculated using the 2020 CKD-EPI creatinine equation. This equation utilizes serum creatinine, sex, and age as parameters. The creatinine assay has traceable calibration to isotope dilution-mass spectrometry. Refer to KDIGO guidelines for clinical interpretation. In patients with unstable renal function, e.g. those with acute kidney injury, the eGFR may not accurately reflect actual GFR. Performed By: #### 2 4323-8 ####HOLT LABORATORYCLIA [id number] [place] [address] [place] Glucose [Mass/Vol] 111 mg/dL High 74-99 [facility] Comment on above: Order Comment: Sigrid zepeda Type: BLOOD SPECIMENOrdering Facility: [facility] Address: [address] [place] [address] Result Comment: The [place] Diabetes Association (ADA) provides guidance for cutoff values for fasting glucose and random glucose. The ADA defines fasting as no caloric intake for at least 8 hours. Fasting plasma glucose results between 100 to 125 mg/dL indicate increased risk for diabetes (prediabetes).Fasting plasma glucose results greater than or equal to 126 mg/dL meet the criteria for diagnosis of diabetes. In the absence of unequivocal hyperglycemia, results should be confirmed by repeat testing. In a patient with classic symptoms of hyperglycemia or hyperglycemic crisis, random plasma glucose results greater than or equal to 200 mg/dL meet the criteria for diagnosis of diabetes.Reference: Standards of Medical Care in Diabetes 2016, [place] [employer]. Diabetes Care. 2016.39(Suppl 1). Performed By: #### 2 4323-8 ####HOLT LABORATORYCLIA [id number] [place] [address] [place] Potassium [Moles/Vol] 3.9 mmol/L Normal 3.7-5.1 [facility] Comment on above: Order Comment: Speci men Type: BLOOD SPECIMENOrdering Facility: [facility] Address: [address] [place] [address] Performed By: #### 2 4323-8 ####HOLT LABORATORYCLIA [id number] [place] [address] [place] Protein [Mass/Vol] 6.4 g/dL Normal 6.3-8.0 [facility] Comment on above: Order Comment: Speci men Type: BLOOD SPECIMENOrdering Facility: [facility] Address: [address] [place] [address] Performed By: #### 2 4323-8 ####HOLT LABORATORYCLIA [id number] [place] [address] [place] Sodium [Moles/Vol] 133 mmol/L Low 136-144 [facility] Comment on above: Order Comment: Speci men Type: BLOOD SPECIMENOrdering Facility: [facility] Address: [address] [place] [address] Performed By: #### 2 4323-8 ####HOLT LABORATORYCLIA [id number] [place] [address] [place] Urea nitrogen [Mass/Vol] 64 mg/dL High 9-24 [facility] Comment on above: Order Comment: Speci men Type: BLOOD SPECIMENOrdering Facility: [facility] Address: [address] [place] [address] Performed By: #### 2 4323-8 ####HOLT LABORATORYCLIA [id number] [place] [address] [place] ECHO TRANSESOPHAGEALon 10-03 ECHO TRANSESOPHAGEAL Normal [facility] OPERATIVE NOon 10-03-2024 OPERATIVE NO [facility] ALLIED HEALTHon 10-02-2024 ALLIED HEALTH [facility] Bacteria Ur Culton Bacteria identified Cx Nom (U) CULTURE, URINE: No growth (<1,000 CFU/ml) Normal [facility] Comment on above: Performed By: #### 6 30-4 ####[facility] LABCLIA [id number] [facility] [id number] [place] [address] [place] CASE MGT INIT ASSESon 2024 CASE MGT INIT [facility] CBC panel Auto (Bld)on 10-02 Erythrocyte distribution width (RBC) [Ratio] 13.1 % Normal 11.5-15.0 [facility] Comment on above: Order Comment: Speci men Type: BLOOD SPECIMENOrdering Facility: [facility] Address: [address] [place] [address] Performed By: #### 5 8410-2 ####HOLT LABORATORYCLIA [id number] [address] Hematocrit (Bld) [Volume fraction] 42.0 % Normal 39.0-51.0 [facility] Comment on above: Order Comment: Speci men Type: BLOOD SPECIMENOrdering Facility: [facility] Address: [address] [place] [address] Performed By: #### 5 8410-2 ####HOLT LABORATORYCLIA [id number] [address] [place] Hemoglobin (Bld) [Mass/Vol] 13.8 g/dL Normal 13.0-17.0 [facility] Comment on above: Order Comment: Speci men Type: BLOOD SPECIMENOrdering Facility: [facility] Address: [address] [place] [address] Performed By: #### 5 8410-2 ####HOLT LABORATORYCLIA [id number] [address] [place] [facility] MCH (RBC) [Entitic mass] 30.4 pg Normal 26.0-34.0 [facility] Comment on above: Order Comment: Speci men Type: BLOOD SPECIMENOrdering Facility: [facility] Address: [address] [place] [address] Performed By: #### 5 8410-2 ####HOLT LABORATORYCLIA [id number] [address] [place] MCHC (RBC) [Mass/Vol] 32.9 g/dL Normal 30.5-36.0 [facility] Comment on above: Order Comment: Speci men Type: BLOOD SPECIMENOrdering Facility: [facility] Address: [address] [place] [address] Performed By: #### 5 8410-2 ####HOLT LABORATORYCLIA [id number] [address] MCV (RBC) [Entitic vol] 92.5 fL Normal 80.0-100.0 [facility] Comment on above: Order Comment: Speci men Type: BLOOD SPECIMENOrdering Facility: [facility] Address: [address] [place] [address] Performed By: #### 5 8410-2 ####HOLT LABORATORYCLIA [id number] [address] Nucleated RBC (Bld) [#/Vol] 10*3/uL Normal <0.01 [facility] Comment on above: Order Comment: Speci men Type: BLOOD SPECIMENOrdering Facility: [facility] Address: [address] [place] [address] Performed By: #### 5 8410-2 ####HOLT LABORATORYCLIA [id number] [address] Platelet mean volume (Bld) [Entitic vol] 12.0 fL Normal 9.0-12.7 [facility] Comment on above: Order Comment: Speci men Type: BLOOD SPECIMENOrdering Facility: [facility] Address: [address] [place] [address] Performed By: #### 5 8410-2 ####HOLT LABORATORYCLIA [id number] [address] [place] Platelets (Bld) [#/Vol] 204 10*3/uL Normal 150-400 [facility] Comment on above: Order Comment: Speci men Type: BLOOD SPECIMENOrdering Facility: [facility] Address: [facility] [place] [address] Performed By: #### 5 8410-2 ####HOLT LABORATORYCLIA [id number] [place] [address] [place] RBC (Bld) [#/Vol] 4.54 10*6/uL Normal 4.20-6.00 [facility] Comment on above: Order Comment: Speci men Type: BLOOD SPECIMENOrdering Facility: [facility] Address: [address] [place] [address] Performed By: #### 5 8410-2 ####HOLT LABORATORYCLIA [id number] [place] [address] [place] WBC (Bld) [#/Vol] 9.86 10*3/uL Normal 3.70-11.00 [facility] Comment on above: Order Comment: Speci men Type: BLOOD SPECIMENOrdering Facility: [facility] Address: [address] [place] [address] Performed By: #### 5 8410-2 ####HOLT LABORATORYCLIA [id number] [address] CONSULTon 10-02-2024 CONSULT Normal [facility] CONSULT Normal [facility] CONSULT Normal [facility] CONSULT PROGon 10-02-2024 CONSULT PROG Normal [facility] CONSULT PROG [facility] HIGH SENSITIVITY TROPONIN To n 10-02-2024 Troponin T.cardiac High sensitivity method [Mass/Vol] 65 ng/L High <12 [facility] Comment on above: Order Comment: Speci men Type: BLOOD SPECIMENOrdering Facility: [facility] Address: [address] [place] [address] Performed By: #### H STNT ####HOLT LABORATORYCLIA [id number] [address] [place] Troponin T.cardiac High sensitivity method [Mass/Vol] Normal [facility] Comment on above: Order Comment: Speci men Type: BLOOD SPECIMENOrdering Facility: [facility] Address: [address] [place] [address] Result Comment: Unab le to assay due to interference from hemolysis. Suggest reorder as clinically indicated. Performed By: #### H STNT ####HOLT LABORATORYCLIA [id number] [address] [place] Legionella Ag Ur Qlon 2024 Legionella sp Ag Ql (U) Negative Normal Negative [facility] Comment on above: Order Comment: Speci men Type: URINE SPECIMENOrdering Facility: [facility] Address: [address] [place] [address] Result Comment: Legi onella urinary antigen test is used as an aid in diagnosis of infection with Legionella pneumophila serogroup 1. It may be detected from a few days to several months after onset of signs and symptoms despite antibiotic therapy or disease resolution. A negative result cannot exclude Legionellosis. Clinical correlation is required. Performed By: #### 3 2781-7 ####[facility] LABCLIA [id number] [facility] [id number] [place] NURSING PROGon 10-02-2024 NURSING PROG Normal [facility] Renal function 2000 panelon 10-02-2024 Albumin [Mass/Vol] 4.2 g/dL Normal 3.9-4.9 [facility] Comment on above: Order Comment: Speci men Type: BLOOD SPECIMENOrdering Facility: [facility] [facility] Address: [address] [place] [address] Performed By: #### 2 4362-6 ####[facility]OL[facility] LABORATORYCLIA [id number] [place] [address] [place] [facility] Anion gap [Moles/Vol] 18 mmol/L High 8-15 [facility] Comment on above: Order Comment: Speci men Type: BLOOD SPECIMENOrdering Facility: [facility] Address: [address] [place] [address] Performed By: #### 2 4362-6 ####HOLT LABORATORYCLIA [id number] [place] [address] [place] Calcium [Mass/Vol] 9.7 mg/dL Normal 8.5-10.2 [facility] Comment on above: Order Comment: Speci men Type: BLOOD SPECIMENOrdering Facility: [facility] Address: [address] [place] [address] Performed By: #### 2 4362-6 ####HOLT LABORATORYCLIA [id number] [place] [address] [place] Chloride [Moles/Vol] 95 mmol/L Low 98-107 [facility] Comment on above: Order Comment: Sigrid zepeda Type: BLOOD SPECIMENOrdering Facility: [facility] Address: [address] [place] [address] Performed By: #### 2 4362-6 ####HOLT LABORATORYCLIA [id number] [place] [id number] [place] CO2 [Moles/Vol] 22 mmol/L Normal 22-30 [facility] Comment on above: Order Comment: Speci men Type: BLOOD SPECIMENOrdering Facility: [facility] Address: [address] [place] [address] Performed By: #### 2 4362-6 ####HOLT LABORATORYCLIA [id number] [place] [address] [place] Creatinine [Mass/Vol] 4.15 mg/dL High 0.73-1.22 [facility] Comment on above: Order Comment: Perryi men Type: BLOOD SPECIMENOrdering Facility: [facility] Address: [address] [place] [address] Performed By: #### 2 4362-6 ####HOLT LABORATORYCLIA [id number] [address] Creatinine and Glomerular filtration rate.predicted panel (S/P/Bld) 17 mL/min/1.73m??? Low >=60 [facility] Comment on above: Order Comment: Sigrid duane Type: BLOOD SPECIMENOrdering Facility: [facility] Address: [address] [place] [address] Result Comment: Gabby mated Glomerular Filtration Rate (eGFR) is calculated using the 2020 CKD-EPI creatinine equation. This equation utilizes serum creatinine, sex, and age as parameters. The creatinine assay has traceable calibration to isotope dilution-mass spectrometry. Refer to KDIGO guidelines for clinical interpretation. In patients with unstable renal function, e.g. those with acute kidney injury, the eGFR may not accurately reflect actual GFR. Performed By: #### 2 4362-6 ####HOLT LABORATORYCLIA [id number] [place] [id number] [place] Glucose [Mass/Vol] 109 mg/dL High 74-99 [facility] Comment on above: Order Comment: Sigrid zepeda Type: BLOOD SPECIMENOrdering Facility: [facility] Address: [address] [place], [place] [address] Result Comment: The [place] Diabetes Association (ADA) provides guidance for cutoff values for fasting glucose and random glucose. The ADA defines fasting as no caloric intake for at least 8 hours. Fasting plasma glucose results between 100 to 125 mg/dL indicate increased risk for diabetes (prediabetes).Fasting plasma glucose results greater than or equal to 126 mg/dL meet the criteria for diagnosis of diabetes. In the absence of unequivocal hyperglycemia, results should be confirmed by repeat testing. In a patient with classic symptoms of hyperglycemia or hyperglycemic crisis, random plasma glucose results greater than or equal to 200 mg/dL meet the criteria for diagnosis of diabetes.Reference: Standards of Medical Care in Diabetes 2016, [place] [employer]. Diabetes Care. 2016.39(Suppl 1). Performed By: #### 2 4362-6 ####HOLT LABORATORYCLIA [id number] [place] [address] [place] Phosphate [Mass/Vol] 5.5 mg/dL High 2.7-4.8 [facility] Comment on above: Order Comment: Sigrid zepeda Type: BLOOD SPECIMENOrdering Facility: [facility] Address: [address] [place] [address] Performed By: #### 2 4362-6 ####HOLT LABORATORYCLIA [id number] [place] [id number] [place] Potassium [Moles/Vol] 4.9 mmol/L Normal 3.7-5.1 [facility] Comment on above: Order Comment: Sigrid men Type: BLOOD SPECIMENOrdering Facility: [facility] Address: [address] [place], [place] [address] Performed By: #### 2 4362-6 ####HOLT LABORATORYCLIA [id number] [place] [address] [place] Sodium [Moles/Vol] 135 mmol/L Low 136-144 [facility] Comment on above: Order Comment: Sigrid men Type: BLOOD SPECIMENOrdering Facility: [facility] Address: [address] [place], [place] [address] Performed By: #### 2 4362-6 ####HOLT LABORATORYCLIA [id number] [place] [address] [place] Urea nitrogen [Mass/Vol] 74 mg/dL High 9-24 [facility] Comment on above: Order Comment: Speci men Type: BLOOD SPECIMENOrdering Facility: [facility] Address: [address] [place] [address] Performed By: #### 2 4362-6 ####[facility] LABORATORYCLIA [id number] [place] [address] [place] SEPSIS LACTATEon 10-02-2024 Lactate [Moles/Vol] 1.8 mmol/L Normal 0.5-2.0 [facility] Comment on above: Order Comment: Speci men Type: BLOOD SPECIMENOrdering Facility: [facility] Address: [address] [place] [address] Performed By: #### S LACT ####[facility] LABORATORYCLIA [id number] [place] [address] [place] STAPHYLOCOCCUS AUREUS AND MR SA SCREEN, PCR, NASALon 10-02-2024 S. aureus and MRSA panel ADINA+probe (Nose) Methicillin-SUSCEPTIB LE Staphylococcus aureus Detected Abnormal Not Detected [facility] Comment on above: Order Comment: Speci men Type: SWABOrdering Facility: [facility] Address: [address] [place] [address] Performed By: #### S APCR ####[facility] LABCLIA [id number] [place] [address] [place] STREPTOCOCCUS PNEUMONIAE ANT IGEN URINEon 10-02-2024 STREPTOCOCCUS PNEUMONIAE ANTIGEN URINE Normal [facility] Comment on above: Performed By: #### S PNAG ####[facility] LABCLIA [id number] [place] [address] [place] URINALYSIS, REFLEX MICROSCOP ICon 10-02-2024 Bacteria LM.HPF (Urine sed) [#/Area] Few Abnormal None Seen [facility] Comment on above: Order Comment: Speci men Type: URINE SPECIMENOrdering Facility: [facility] Address: [address] [place] [address] Performed By: #### L [id number] ####HOLT LABORATORYCLIA [id number] [place] [address] [place] Bilirubin Ql (U) Negative Normal Negative [facility] Comment on above: Order Comment: Speci men Type: URINE SPECIMENOrdering Facility: [facility] Address: [address] [place] [address] Performed By: #### L [id number] ####HOLT LABORATORYCLIA [id number] [address] Clarity (Unsp spec) Clear Normal Clear [facility] Comment on above: Order Comment: Speci men Type: URINE SPECIMENOrdering Facility: [facility] Address: [address] [place] [address] Performed By: #### L [id number] ####HOLT LABORATORYCLIA [id number] [address] [place] Color (U) Yellow Normal Yellow [facility] Comment on above: Order Comment: Speci men Type: URINE SPECIMENOrdering Facility: [facility] Address: [address] [place] [address] Performed By: #### L [id number] ####HOLT LABORATORYCLIA [id number] [address] Epithelial cells LM.HPF (Urine sed) [#/Area] Few Normal [facility] Comment on above: Order Comment: Speci men Type: URINE SPECIMENOrdering Facility: [facility] Address: [address] [place] [address] Performed By: #### L [id number] ####HOLT LABORATORYCLIA [id number] [place] [id number] [facility] [place] Glucose Test strip (U) [Mass/Vol] Negative Normal Negative [facility] Comment on above: Order Comment: Speci men Type: URINE SPECIMENOrdering Facility: [facility] Address: [address] [place] [address] Performed By: #### L [id number] ####HOLT LABORATORYCLIA [id number] [address] [place] Hemoglobin Ql (U) Negative Normal Negative [facility] Comment on above: Order Comment: Speci men Type: URINE SPECIMENOrdering Facility: [facility] Address: [address] [place] [address] Performed By: #### L [id number] ####HOLT LABORATORYCLIA [id number] [place] [address] [place] Hyaline casts (Urine sed) [#/Area] 1-3 /LPF Abnormal 0 /LPF [facility] Comment on above: Order Comment: Speci men Type: URINE SPECIMENOrdering Facility: [facility] Address: [address] [place] [address] Performed By: #### L [id number] ####HOLT LABORATORYCLIA [id number] [address] [place] Ketones Ql (U) Negative Normal Negative [facility] Comment on above: Order Comment: Speci men Type: URINE SPECIMENOrdering Facility: [facility] Address: [address] [place] [address] Performed By: #### L [id number] ####HOLT LABORATORYCLIA [id number] [address] [place] Leukocyte esterase Test strip Ql (U) Negative Normal Negative [facility] Comment on above: Order Comment: Speci men Type: URINE SPECIMENOrdering Facility: [facility] Address: [address] [place] [address] Performed By: #### L [id number] ####HOL[facility] LABORATORYCLIA [id number] [place] [address] [place] Nitrite Ql (U) Negative Normal Negative [facility] Comment on above: Order Comment: Speci men Type: URINE SPECIMENOrdering Facility: [facility] Address: [address] [place] [address] Performed By: #### L [id number] ####HOLT LABORATORYCLIA [id number] [place] [address] [place] pH (U) 6.0 [pH] Normal 5.0-8.0 [facility] Comment on above: Order Comment: Speci men Type: URINE SPECIMENOrdering Facility: [facility] Address: [address] [place] [address] Performed By: #### L [id number] ####HOLT LABORATORYCLIA [id number] [address] Protein (U) [Mass/Vol] Trace Abnormal Negative [facility] Comment on above: Order Comment: Speci men Type: URINE SPECIMENOrdering Facility: [facility] Address: [address] [place] [address] Performed By: #### L [id number] ####HOL[facility] LABORATORYCLIA [id number] [address] RBC LM.HPF (Urine sed) [#/Area] 0-3 /HPF Normal 0-3 /HPF [facility] Comment on above: Order Comment: Speci men Type: URINE SPECIMENOrdering Facility: [facility] Address: [address] [place] [address] Performed By: #### L [id number] ####HOL[facility] LABORATORYCLIA [id number] [address] Specific gravity (U) [Rel density] 1.020 Normal 1.005-1.030 [facility] Comment on above: Order Comment: Speci men Type: URINE SPECIMENOrdering Facility: [facility] Address: [address] [place] [address] Performed By: #### L [id number] ####HOL[facility] LABORATORYCLIA [id number] [address] Urobilinogen Ql (U) 0.2 EU/dL Normal 0.2-1.0 EU/dL [facility] Comment on above: Order Comment: Speci men Type: URINE SPECIMENOrdering Facility: [facility] Address: [address] [place] [address] Performed By: #### L [id number] ####HOLT LABORATORYCLIA [id number] [address] [place] WBC LM.HPF (Urine sed) [#/Area] 0-5 /HPF Normal 0-5 /HPF [facility] Comment on above: Order Comment: Speci men Type: URINE SPECIMENOrdering Facility: [facility] Address: [address] [place] [address] Performed By: #### L [id number] ####[facility] LABORATORYCLIA [id number] [place] [address] [place] US ASCITES SURVEYon 10-02-19 US ASCITES SURVEY Normal [facility] US DVT LOWER BILon US DVT LOWER CARLOS Normal [facility] ALLIED HEALTHon 10-01-2024 ALLIED HEALTH Normal [facility] Bacteria Bld Culton 10-01-19 Bacteria identified Cx Nom (Bld) CULTURE, BLOOD: No growth 5 days GRAM STAIN: This blood culture had less than the recommended 8 ml per bottle, which could decrease the sensitivity of the test. [facility] Comment on above: Performed By: #### 6 00-7 ####[facility] LABCLIA [id number] [id number] [address] [place] CBC W Auto Differential pane l (Bld)on 10-01-2024 Basophils (Bld) [#/Vol] 0.07 10*3/uL Normal <0.11 [facility] Comment on above: Order Comment: Speci men Type: BLOOD SPECIMENOrdering Facility: [facility] Address: [address] [place] [address] Performed By: #### 5 7021-8 ####[facility] LABORATORYCLIA [id number] [place] [address] [place] Basophils/100 WBC (Bld) 0.6 % Normal [facility] Comment on above: Order Comment: Speci men Type: BLOOD SPECIMENOrdering Facility: [facility] Address: [address] [place] [address] Performed By: #### 5 7021-8 ####[facility] LABORATORYCLIA [id number] [place] [address] [place] Differential cell count method Nom (Bld) Auto Normal [facility] Comment on above: Order Comment: Speci men Type: BLOOD SPECIMENOrdering Facility: [facility] Address: [address] [place] [address] Performed By: #### 5 7021-8 ####HOLT LABORATORYCLIA [id number] [place] [address] [facility] [place] Eosinophils (Bld) [#/Vol] 10*3/uL Normal <0.46 [facility] Comment on above: Order Comment: Speci men Type: BLOOD SPECIMENOrdering Facility: [facility] Address: [address] [place] [address] Performed By: #### 5 7021-8 ####HOLT LABORATORYCLIA [id number] [address] [place] Eosinophils/100 WBC (Bld) 0.2 % Normal [facility] Comment on above: Order Comment: Speci men Type: BLOOD SPECIMENOrdering Facility: [facility] Address: [address] [place] [address] Performed By: #### 5 7021-8 ####HOLT LABORATORYCLIA [id number] [address] [place] Erythrocyte distribution width (RBC) [Ratio] 13.0 % Normal 11.5-15.0 [facility] Comment on above: Order Comment: Speci men Type: BLOOD SPECIMENOrdering Facility: [facility] Address: [address] [place] [address] Performed By: #### 5 7021-8 ####HOL[facility] LABORATORYCLIA [id number] [address] Hematocrit (Bld) [Volume fraction] 45.6 % Normal 39.0-51.0 [facility] Comment on above: Order Comment: Speci men Type: BLOOD SPECIMENOrdering Facility: [facility] Address: [address] [place] [address] Performed By: #### 5 7021-8 ####HOLT LABORATORYCLIA [id number] [address] [place] Hemoglobin (Bld) [Mass/Vol] 15.1 g/dL Normal 13.0-17.0 [facility] Comment on above: Order Comment: Speci men Type: BLOOD SPECIMENOrdering Facility: [facility] Address: [address] [place] [address] Performed By: #### 5 7021-8 ####HOLT LABORATORYCLIA [id number] [place] [address] [place] Immature granulocytes (Bld) [#/Vol] 0.05 10*3/uL Normal <0.10 [facility] Comment on above: Order Comment: Speci men Type: BLOOD SPECIMENOrdering Facility: [facility] Address: [address] [place] [address] Performed By: #### 5 7021-8 ####HOLT LABORATORYCLIA [id number] [place] [address] [place] Immature granulocytes/100 WBC (Bld) 0.4 % Normal [facility] Comment on above: Order Comment: Speci men Type: BLOOD SPECIMENOrdering Facility: [facility] Address: [address] [place] [address] Performed By: #### 5 7021-8 ####H[facility] LABORATORYCLIA [id number] [place] [address] [place] Lymphocytes (Bld) [#/Vol] 1.34 10*3/uL Normal 1.00-4.00 [facility] Comment on above: Order Comment: Speci men Type: BLOOD SPECIMENOrdering Facility: [facility] Address: [address] [place] [address] Performed By: #### 5 7021-8 ####H[facility] LABORATORYCLIA [id number] [address] [place] Lymphocytes/100 WBC (Bld) 11.4 % Normal [facility] Comment on above: Order Comment: Speci men Type: BLOOD SPECIMENOrdering Facility: [facility] Address: [address] [place] [address] Performed By: #### 5 7021-8 ####H[facility] LABORATORYCLIA [id number] [place] [address] [place] MCH (RBC) [Entitic mass] 30.6 pg Normal 26.0-34.0 [facility] Comment on above: Order Comment: Speci men Type: BLOOD SPECIMENOrdering Facility: [facility] Address: [address] [place] [address] Performed By: #### 5 7021-8 ####H[facility] LABORATORYCLIA [id number] [place] [address] [place] MCHC (RBC) [Mass/Vol] 33.1 g/dL Normal 30.5-36.0 [facility] Comment on above: Order Comment: Speci men Type: BLOOD SPECIMENOrdering Facility: [facility] Address: [address] [place] [address] Performed By: #### 5 7021-8 ####H[facility] LABORATORYCLIA [id number] [place] [address] [place] MCV (RBC) [Entitic vol] 92.5 fL Normal 80.0-100.0 [facility] Comment on above: Order Comment: Speci men Type: BLOOD SPECIMENOrdering Facility: [facility] Address: [address] [place] [address] Performed By: #### 5 7021-8 ####[facility] LABORATORYCLIA [id number] [place] [address] [place] Monocytes (Bld) [#/Vol] 0.90 10*3/uL High <0.87 [facility] Comment on above: Order Comment: Speci men Type: BLOOD SPECIMENOrdering Facility: [facility] Address: [address] [place] [address] Performed By: #### 5 7021-8 ####[facility] LABORATORYCLIA [id number] [address] [place] Monocytes/100 WBC (Bld) 7.7 % Normal [facility] Comment on above: Order Comment: Speci men Type: BLOOD SPECIMENOrdering Facility: [facility] Address: [address] [place] [address] Performed By: #### 5 7021-8 ####[facility] LABORATORYCLIA [id number] [place] [address] [place] Neutrophils (Bld) [#/Vol] 9.37 10*3/uL High 1.45-7.50 [facility] Comment on above: Order Comment: Speci men Type: BLOOD SPECIMENOrdering Facility: [facility] Address: [address] [place] [address] Performed By: #### 5 7021-8 ####[facility] LABORATORYCLIA [id number] [address] Neutrophils/100 WBC (Bld) 79.7 % Normal [facility] Comment on above: Order Comment: Speci men Type: BLOOD SPECIMENOrdering Facility: [facility] Address: [address] [place] [address] Performed By: #### 5 7021-8 ####[facility] LABORATORYCLIA [id number] [place] [address] [place] Nucleated RBC (Bld) [#/Vol] 10*3/uL Normal <0.01 [facility] Comment on above: Order Comment: Speci men Type: BLOOD SPECIMENOrdering Facility: [facility] Address: [address] [place] [address] Performed By: #### 5 7021-8 ####[facility] LABORATORYCLIA [id number] [address] [place] Nucleated RBC/100 WBC (Bld) [Ratio] 0.0 /100 WBC Normal [facility] Comment on above: Order Comment: Speci men Type: BLOOD SPECIMENOrdering Facility: [facility] Address: [address] [place] [address] Performed By: #### 5 7021-8 ####[facility] LABORATORYCLIA [id number] [place] [address] [place] Platelet mean volume (Bld) [Entitic vol] 11.9 fL Normal 9.0-12.7 [facility] Comment on above: Order Comment: Speci men Type: BLOOD SPECIMENOrdering Facility: [facility] Address: [address] [place] [address] Performed By: #### 5 7021-8 ####[facility] LABORATORYCLIA [id number] [place] [address] [place] Platelets (Bld) [#/Vol] 266 10*3/uL Normal 150-400 [facility] Comment on above: Order Comment: Speci men Type: BLOOD SPECIMENOrdering Facility: [facility] Address: [address] [place], [place] [address] Performed By: #### 5 7021-8 ####[facility] LABORATORYCLIA [id number] [address] [place] RBC (Bld) [#/Vol] 4.93 10*6/uL Normal 4.20-6.00 [facility] Comment on above: Order Comment: Speci men Type: BLOOD SPECIMENOrdering Facility: [facility] Address: [address] [place] [address] Performed By: #### 5 7021-8 ####[facility] LABORATORYCLIA [id number] [address] WBC (Bld) [#/Vol] 11.75 10*3/uL High 3.70-11.00 [facility] Comment on above: Order Comment: Speci men Type: BLOOD SPECIMENOrdering Facility: [facility] Address: [address] [place] [address] Performed By: #### 5 7021-8 ####[facility] LABORATORYCLIA [id number] [address] [place] CNPNon 10-01-2024 CNP Normal [facility] CT ABD/PEL WO IVCONon 2024 CT ABD/PEL WO IVCON Normal [facility] Comprehensive metabolic 2000 panelon 10-01-2024 Albumin [Mass/Vol] 4.4 g/dL Normal 3.9-4.9 [facility] Comment on above: Order Comment: Speci men Type: BLOOD SPECIMENOrdering Facility: [facility] Address: [address] [place], [place] [address] Performed By: #### L [id number], 83647-7, 88615-4 ####[facility] LABORATORYCLIA [id number] [address] ALP [Catalytic activity/Vol] 71 U/L Normal 38-113 [facility] Comment on above: Order Comment: Speci men Type: BLOOD SPECIMENOrdering Facility: [facility] Address: [address] [place], [place] [address] Performed By: #### L [id number], 58347-5, 34804-3 ####[facility] LABORATORYCLIA [id number] [place] [address] [place] ALT [Catalytic activity/Vol] 25 U/L Normal 10-54 [facility] Comment on above: Order Comment: Speci men Type: BLOOD SPECIMENOrdering Facility: [facility] Address: [address] [place] [address] Performed By: #### L [id number], 13124-6, 48494-7 ####[facility] LABORATORYCLIA [id number] [place] [address] [place] Anion gap [Moles/Vol] 16 mmol/L High 8-15 [facility] Comment on above: Order Comment: Speci men Type: BLOOD SPECIMENOrdering Facility: [facility] Address: [address] [place] [address] Performed By: #### L [id number], 79848-9, 36672-9 ####[facility] LABORATORYCLIA [id number] [place] [address] [place] AST [Catalytic activity/Vol] 28 U/L Normal 14-40 [facility] Comment on above: Order Comment: Speci men Type: BLOOD SPECIMENOrdering Facility: [facility] Address: [address] [place] [address] Performed By: #### L [id number], 71216-1, 84700-2 ####[facility] LABORATORYCLIA [id number] [place] [address] [place] Bilirubin [Mass/Vol] 1.2 mg/dL Normal 0.2-1.3 [facility] Comment on above: Order Comment: Speci men Type: BLOOD SPECIMENOrdering Facility: [facility] Address: [address] [place] [address] Performed By: #### L [id number], 79274-6, 47129-1 ####[facility] LABORATORYCLIA [id number] [place] [address] [place] Calcium [Mass/Vol] 9.7 mg/dL Normal 8.5-10.2 [facility] Comment on above: Order Comment: Speci men Type: BLOOD SPECIMENOrdering Facility: [facility] Address: [address] [place] [address] Performed By: #### L [id number], 20872-4, 75656-4 ####[facility] LABORATORYCLIA [id number] [place] [address] [place] Chloride [Moles/Vol] 92 mmol/L Low 98-107 [facility] Comment on above: Order Comment: Speci men Type: BLOOD SPECIMENOrdering Facility: [facility] Address: [address] [place] [address] Performed By: #### L [id number], 11490-7, 20279-6 ####[facility] LABORATORYCLIA [id number] [place] [address] [place] CO2 [Moles/Vol] 23 mmol/L Normal 22-30 [facility] Comment on above: Order Comment: Speci men Type: BLOOD SPECIMENOrdering Facility: [facility] Address: [address] [place] [address] Performed By: #### L [id number], 86501-6, 99079-7 ####[facility] LABORATORYCLIA [id number] [place] [address] [place] Creatinine [Mass/Vol] 4.46 mg/dL High 0.73-1.22 [facility] Comment on above: Order Comment: Speci men Type: BLOOD SPECIMENOrdering Facility: [facility] Address: [address] [place] [address] Performed By: #### L [id number], 60137-0, 09705-0 ####[facility] LABORATORYCLIA [id number] [place] [address] [place] Creatinine and Glomerular filtration rate.predicted panel (S/P/Bld) 15 mL/min/1.73m??? Low >=60 [facility] Comment on above: Order Comment: Speci men Type: BLOOD SPECIMENOrdering Facility: [facility] Address: [address] [place] [address] Result Comment: Gabby mated Glomerular Filtration Rate (eGFR) is calculated using the 2020 CKD-EPI creatinine equation. This equation utilizes serum creatinine, sex, and age as parameters. The creatinine assay has traceable calibration to isotope dilution-mass spectrometry. Refer to KDIGO guidelines for clinical interpretation. In patients with unstable renal function, e.g. those with acute kidney injury, the eGFR may not accurately reflect actual GFR. Performed By: #### L [id number], 87917-0, 85834-7 ####[facility] LABORATORYCLIA [id number] [place] [address] [place] Glucose [Mass/Vol] 120 mg/dL High 74-99 [facility] Comment on above: Order Comment: Sigrid zepeda Type: BLOOD SPECIMENOrdering Facility: [facility] Address: [address] [place] [address] Result Comment: The [place] Diabetes Association (ADA) provides guidance for cutoff values for fasting glucose and random glucose. The ADA defines fasting as no caloric intake for at least 8 hours. Fasting plasma glucose results between 100 to 125 mg/dL indicate increased risk for diabetes (prediabetes).Fasting plasma glucose results greater than or equal to 126 mg/dL meet the criteria for diagnosis of diabetes. In the absence of unequivocal hyperglycemia, results should be confirmed by repeat testing. In a patient with classic symptoms of hyperglycemia or hyperglycemic crisis, random plasma glucose results greater than or equal to 200 mg/dL meet the criteria for diagnosis of diabetes.Reference: Standards of Medical Care in Diabetes 2016, [place] [employer]. Diabetes Care. 2016.39(Suppl 1). Performed By: #### L [id number], 61163-2, 33951-6 ####[facility]ORATORYCLIA [id number] [place] [id number] [place] Potassium [Moles/Vol] 5.0 mmol/L Normal 3.7-5.1 [facility] Comment on above: Order Comment: Sigrid zepeda Type: BLOOD SPECIMENOrdering Facility: [facility] Address: [address] [place] [address] Performed By: #### L [id number], 21648-4, 67505-9 ####[facility]ORATORYCLIA [id number] [place] [address] [place] Protein [Mass/Vol] 7.0 g/dL Normal 6.3-8.0 [facility] Comment on above: Order Comment: Speci men Type: BLOOD SPECIMENOrdering Facility: [facility] Address: [address] [id number] Performed By: #### L NA7011, 19153-5, 52133-1 ####[facility] LABORATORYCLIA [id number] [place] [address] [place] Sodium [Moles/Vol] 131 mmol/L Low 136-144 [facility] Comment on above: Order Comment: Speci men Type: BLOOD SPECIMENOrdering Facility: [facility] Address: [address] [place] [address] Performed By: #### L HL3207, 81059-3, 18518-6 ####[facility] LABORATORYCLIA [id number] [address] Urea nitrogen [Mass/Vol] 74 mg/dL High 9-24 [facility] Comment on above: Order Comment: Speci men Type: BLOOD SPECIMENOrdering Facility: [facility] Address: [address] [place] [address] Performed By: #### L [id number], 38642-8, 09165-1 ####[facility] LABORATORYCLIA [id number] [address] [place] ECG COMPLETEon 10-01-2024 ECG COMPLETE Normal [facility] ED PROV NOTEon 10-01-2024 ED PROV NOTE Normal [facility] HIGH SENSITIVITY TROPONIN T (INITIAL)on 10-01-2024 Troponin T.cardiac High sensitivity method [Mass/Vol] 77 ng/L High <12 [facility] Comment on above: Order Comment: Speci men Type: BLOOD SPECIMENOrdering Facility: [facility] Address: [address] [place] [address] Performed By: #### L GT3693, 67522-0, 24755-3 ####[facility] LABORATORYCLIA [id number] [address] [place] HIGH SENSITIVITY TROPONIN T (SECOND)on 10-01-2024 Troponin T.cardiac High sensitivity method [Mass/Vol] 77 ng/L High <12 [facility] Comment on above: Order Comment: Speci men Type: BLOOD SPECIMENOrdering Facility: [facility] Address: [address] [place] [address] Performed By: #### L [id number] ####[facility] LABORATORYCLIA [id number] [address] HIGH SENSITIVITY TROPONIN T (THIRD) 3 HRS AFTER INITIALon 10-01-2024 Troponin T.cardiac High sensitivity method [Mass/Vol] 71 ng/L High <12 [facility] Comment on above: Order Comment: Speci men Type: BLOOD SPECIMENOrdering Facility: [facility] Address: [address] [place] [address] Performed By: #### 3 3959-8, [id number] ####[facility] LABORATORYCLIA [id number] [address] [place] HISTORY PHYSICALon HISTORY PHYSICAL Normal [facility] NT-proBNP SerPl-mCncon 10-01 Natriuretic peptide.B prohormone N-Terminal [Mass/Vol] 51391 pg/mL High <125 [facility] Comment on above: Order Comment: Speci men Type: BLOOD SPECIMENOrdering Facility: [facility] Address: [address] [place] [address] Performed By: #### L QA8639, 06419-6, 41845-0 ####[facility] LABORATORYCLIA [id number] [address] Procalcitonin SerPl-mCncon 0 10-01-2024 Procalcitonin [Mass/Vol] 0.16 ng/mL High <0.09 [facility] Comment on above: Order Comment: Speci men Type: BLOOD SPECIMENOrdering Facility: [facility] Address: [address] [place] [address] Result Comment: For a guided interpretation of test results, please visit the Change in Procalcitonin Calculator, [email or web address]. Performed By: #### 3 3959-8 ####[facility] LABORATORYCLIA [id number] [address] Procalcitonin [Mass/Vol] 0.15 ng/mL High <0.09 [facility] Comment on above: Order Comment: Speci men Type: BLOOD SPECIMENOrdering Facility: [facility] Address: [address] [place] [address] Result Comment: For a guided interpretation of test results, please visit the Change in Procalcitonin Calculator, [email or web address]. Performed By: #### 3 3959-8, [id number] ####[facility] LABORATORYCLIA [id number] [address] SEPSIS LACTATEon 10-01-2024 Lactate [Moles/Vol] 2.6 mmol/L High 0.5-2.0 [facility] Comment on above: Order Comment: Speci men Type: BLOOD SPECIMENOrdering Facility: [facility] Address: [address] [place] [address] Performed By: #### S LACT ####[facility]ATORYCLIA [id number] [address] SEPSIS LACTATE W/ REFLEX (IN ITIAL)on 10-01-2024 Lactate [Moles/Vol] 1.7 mmol/L Normal 0.5-2.0 [facility] Comment on above: Order Comment: Speci men Type: BLOOD SPECIMENOrdering Facility: [facility] Address: [address] [place] [address] Performed By: #### S LACTR ####[facility]ORATORYCLIA [id number] [address] Urinalysis complete panel (U )on 10-01-2024 Bacteria LM.HPF (Urine sed) [#/Area] Few Abnormal None Seen [facility] Comment on above: Order Comment: Speci men Type: URINE SPECIMENOrdering Facility: [facility] Address: [address] [place] [address] Performed By: #### 2 4356-8 ####[facility] LABORATORYCLIA [id number] [address] Bilirubin Ql (U) Negative Normal Negative [facility] Comment on above: Order Comment: Speci men Type: URINE SPECIMENOrdering Facility: [facility] Address: [address] [place] [address] Performed By: #### 2 4356-8 ####[facility] LABORATORYCLIA [id number] [address] Clarity (Unsp spec) Clear Normal Clear [facility] Comment on above: Order Comment: Speci men Type: URINE SPECIMENOrdering Facility: [facility] Address: [address] [place] [address] Performed By: #### 2 4356-8 ####[facility] LABORATORYCLIA [id number] [address] [place] Color (U) Yellow Normal Yellow [facility] Comment on above: Order Comment: Speci men Type: URINE SPECIMENOrdering Facility: [facility] Address: [address] [place] [address] Performed By: #### 2 4356-8 ####[facility] LABORATORYCLIA [id number] [address] Glucose Test strip (U) [Mass/Vol] Trace Abnormal Negative [facility] Comment on above: Order Comment: Speci men Type: URINE SPECIMENOrdering Facility: [facility] Address: [address] [place] [address] Performed By: #### 2 4356-8 ####[facility] LABORATORYCLIA [id number] [address] [place] Hemoglobin Ql (U) Negative Normal Negative [facility] Comment on above: Order Comment: Speci men Type: URINE SPECIMENOrdering Facility: [facility] Address: [address] [place] [address] Performed By: #### 2 4356-8 ####[facility] LABORATORYCLIA [id number] [address] Hyaline casts (Urine sed) [#/Area] 1-3 /LPF Abnormal 0 /LPF [facility] Comment on above: Order Comment: Speci men Type: URINE SPECIMENOrdering Facility: [facility] Address: [address] [place] [address] Performed By: #### 2 4356-8 ####[facility] LABORATORYCLIA [id number] [address] [place] Ketones Ql (U) Negative Normal Negative [facility] Comment on above: Order Comment: Speci men Type: URINE SPECIMENOrdering Facility: [facility] Address: [address] [place] [address] Performed By: #### 2 4356-8 ####[facility] LABORATORYCLIA [id number] [address] [place] [facility] Leukocyte esterase Test strip Ql (U) Negative Normal Negative [facility] Comment on above: Order Comment: Speci men Type: URINE SPECIMENOrdering Facility: [facility] Address: [address] [place] [address] Performed By: #### 2 4356-8 ####[facility] LABORATORYCLIA [id number] [address] Nitrite Ql (U) Negative Normal Negative [facility] Comment on above: Order Comment: Speci men Type: URINE SPECIMENOrdering Facility: [facility] Address: [address] [place] [address] Performed By: #### 2 4356-8 ####[facility] LABORATORYCLIA [id number] [address] pH (U) 5.5 [pH] Normal 5.0-8.0 [facility] Comment on above: Order Comment: Speci men Type: URINE SPECIMENOrdering Facility: [facility] Address: [address] [place] [address] Performed By: #### 2 4356-8 ####[facility] LABORATORYCLIA [id number] [address] [place] Protein (U) [Mass/Vol] Trace Abnormal Negative [facility] Comment on above: Order Comment: Speci men Type: URINE SPECIMENOrdering Facility: [facility] Address: [address] [place] [address] Performed By: #### 2 4356-8 ####[facility] LABORATORYCLIA [id number] [place] [address] [place] RBC LM.HPF (Urine sed) [#/Area] 0-3 /HPF Normal 0-3 /HPF [facility] Comment on above: Order Comment: Speci men Type: URINE SPECIMENOrdering Facility: [facility] Address: [address] [place] [address] Performed By: #### 2 4356-8 ####[facility] LABORATORYCLIA [id number] [place] [address] [place] Specific gravity (U) [Rel density] 1.020 Normal 1.005-1.030 [facility] Comment on above: Order Comment: Speci men Type: URINE SPECIMENOrdering Facility: [facility] Address: [address] [place] [address] Performed By: #### 2 4356-8 ####[facility] LABORATORYCLIA [id number] [place] [address] [place] Urobilinogen Ql (U) 0.2 EU/dL Normal 0.2-1.0 EU/dL [facility] Comment on above: Order Comment: Speci men Type: URINE SPECIMENOrdering Facility: [facility] Address: [address] [place] [address] Performed By: #### 2 4356-8 ####[facility] LABORATORYCLIA [id number] [address] [place] WBC LM.HPF (Urine sed) [#/Area] 0-5 /HPF Normal 0-5 /HPF [facility] Comment on above: Order Comment: Speci men Type: URINE SPECIMENOrdering Facility: [facility] Address: [address] [place] [address] Performed By: #### 2 4356-8 ####[facility] LABORATORYCLIA [id number] [place] [address] [place] XR CHEST 1V FRONTAL PORTon 0 10-01-2024 XR CHEST 1V FRONTAL PORT [facility] CNPNon 09-29-2024 [facility] Basic metabolic 2000 panelon 09-26-2024 Anion gap [Moles/Vol] 19 mmol/L High 8-15 [facility] Comment on above: Order Comment: Speci men Type: BLOOD SPECIMENOrdering Facility: [facility] Address: [address] [place] [address] Performed By: #### 2 4321-2 ####[facility] LABORATORYCLIA [id number] [place] [address] [place] Calcium [Mass/Vol] 9.2 mg/dL Normal 8.5-10.2 [facility] Comment on above: Order Comment: Speci men Type: BLOOD SPECIMENOrdering Facility: [facility] Address: [address] [place] [address] Performed By: #### 2 4321-2 ####[facility] LABORATORYCLIA [id number] [place] [address] [place] Chloride [Moles/Vol] 92 mmol/L Low 98-107 [facility] Comment on above: Order Comment: Speci men Type: BLOOD SPECIMENOrdering Facility: [facility] Address: [address] [place] [address] Performed By: #### 2 4321-2 ####[facility] LABORATORYCLIA [id number] [place] [address] [place] CO2 [Moles/Vol] 17 mmol/L Low 22-30 [facility] Comment on above: Order Comment: Speci men Type: BLOOD SPECIMENOrdering Facility: [facility] Address: [address] [place] [address] Performed By: #### 2 4321-2 ####[facility] LABORATORYCLIA [id number] [place] [address] [place] Creatinine [Mass/Vol] 2.37 mg/dL High 0.73-1.22 [facility] Comment on above: Order Comment: Speci men Type: BLOOD SPECIMENOrdering Facility: [facility] Address: [address] [place] [address] Performed By: #### 2 4321-2 ####[facility] LABORATORYCLIA [id number] [address] [place] Creatinine and Glomerular filtration rate.predicted panel (S/P/Bld) 33 mL/min/1.73m??? Low >=60 [facility] Comment on above: Order Comment: Speci men Type: BLOOD SPECIMENOrdering Facility: [facility] Address: [address] [place] [address] Result Comment: Gabby mated Glomerular Filtration Rate (eGFR) is calculated using the 2020 CKD-EPI creatinine equation. This equation utilizes serum creatinine, sex, and age as parameters. The creatinine assay has traceable calibration to isotope dilution-mass spectrometry. Refer to KDIGO guidelines for clinical interpretation. In patients with unstable renal function, e.g. those with acute kidney injury, the eGFR may not accurately reflect actual GFR. Performed By: #### 2 4321-2 ####[facility] LABORATORYCLIA [id number] [place] [address] [place] Glucose [Mass/Vol] 116 mg/dL High 74-99 [facility] Comment on above: Order Comment: Sigrid zepeda Type: BLOOD SPECIMENOrdering Facility: [facility] Address: [address] [place] [address] Result Comment: The [place] Diabetes Association (ADA) provides guidance for cutoff values for fasting glucose and random glucose. The ADA defines fasting as no caloric intake for at least 8 hours. Fasting plasma glucose results between 100 to 125 mg/dL indicate increased risk for diabetes (prediabetes).Fasting plasma glucose results greater than or equal to 126 mg/dL meet the criteria for diagnosis of diabetes. In the absence of unequivocal hyperglycemia, results should be confirmed by repeat testing. In a patient with classic symptoms of hyperglycemia or hyperglycemic crisis, random plasma glucose results greater than or equal to 200 mg/dL meet the criteria for diagnosis of diabetes.Reference: Standards of Medical Care in Diabetes 2016, [place] [employer]. Diabetes Care. 2016.39(Suppl 1). Performed By: #### 2 4321-2 ####[facility]ORATORYCLIA [id number] [place] [id number] [place] Potassium [Moles/Vol] 4.0 mmol/L Normal 3.7-5.1 [facility] Comment on above: Order Comment: Sigrid zepeda Type: BLOOD SPECIMENOrdering Facility: [facility] Address: [address] [place] [id number] Performed By: #### 2 4321-2 ####[facility] LABORATORYCLIA [id number] [place] [address] [place] Sodium [Moles/Vol] 128 mmol/L Low 136-144 [facility] Comment on above: Order Comment: Speci men Type: BLOOD SPECIMENOrdering Facility: [facility] Address: [address] [place] [address] Performed By: #### 2 4321-2 ####H[facility] LABORATORYCLIA [id number] [place] [address] [place] Urea nitrogen [Mass/Vol] 49 mg/dL High 9-24 [facility] Comment on above: Order Comment: Speci men Type: BLOOD SPECIMENOrdering Facility: [facility] Address: [address] [place] [address] Performed By: #### 2 4321-2 ####H[facility] LABORATORYCLIA [id number] [address] [place] CBC panel Auto (Bld)on 09-26 Erythrocyte distribution width (RBC) [Ratio] 12.8 % Normal 11.5-15.0 [facility] Comment on above: Order Comment: Speci men Type: BLOOD SPECIMENOrdering Facility: [facility] Address: [address] [place] [address] Performed By: #### 5 8410-2 ####[facility] LABORATORYCLIA [id number] [address] [place] Hematocrit (Bld) [Volume fraction] 43.4 % Normal 39.0-51.0 [facility] Comment on above: Order Comment: Speci men Type: BLOOD SPECIMENOrdering Facility: [facility] Address: [address] [place] [address] Performed By: #### 5 8410-2 ####[facility] LABORATORYCLIA [id number] [place] [address] [place] Hemoglobin (Bld) [Mass/Vol] 14.3 g/dL Normal 13.0-17.0 [facility] Comment on above: Order Comment: Speci men Type: BLOOD SPECIMENOrdering Facility: [facility] Address: [address] [place] [address] Performed By: #### 5 8410-2 ####[facility] LABORATORYCLIA [id number] [address] MCH (RBC) [Entitic mass] 30.5 pg Normal 26.0-34.0 [facility] Comment on above: Order Comment: Speci men Type: BLOOD SPECIMENOrdering Facility: [facility] Address: [address] [place] [address] Performed By: #### 5 8410-2 ####[facility] LABORATORYCLIA [id number] [address] [place] MCHC (RBC) [Mass/Vol] 32.9 g/dL Normal 30.5-36.0 [facility] Comment on above: Order Comment: Speci men Type: BLOOD SPECIMENOrdering Facility: [facility] Address: [address] [place] [address] Performed By: #### 5 8410-2 ####[facility] LABORATORYCLIA [id number] [address] MCV (RBC) [Entitic vol] 92.5 fL Normal 80.0-100.0 [facility] Comment on above: Order Comment: Speci men Type: BLOOD SPECIMENOrdering Facility: [facility] Address: [address] [place] [address] Performed By: #### 5 8410-2 ####[facility] LABORATORYCLIA [id number] [address] Nucleated RBC (Bld) [#/Vol] 10*3/uL Normal <0.01 [facility] Comment on above: Order Comment: Speci men Type: BLOOD SPECIMENOrdering Facility: [facility] Address: [address] [place] [address] Performed By: #### 5 8410-2 ####H[facility] LABORATORYCLIA [id number] [address] Platelet mean volume (Bld) [Entitic vol] 11.2 fL Normal 9.0-12.7 [facility] Comment on above: Order Comment: Speci men Type: BLOOD SPECIMENOrdering Facility: [facility] Address: [address] [place] [address] Performed By: #### 5 8410-2 ####HOL[facility] LABORATORYCLIA [id number] [place] [address] [facility] [place] Platelets (Bld) [#/Vol] 244 10*3/uL Normal 150-400 [facility] Comment on above: Order Comment: Speci men Type: BLOOD SPECIMENOrdering Facility: [facility] Address: [address] [place] [address] Performed By: #### 5 8410-2 ####HOL[facility] LABORATORYCLIA [id number] [place] [address] [place] RBC (Bld) [#/Vol] 4.69 10*6/uL Normal 4.20-6.00 [facility] Comment on above: Order Comment: Speci men Type: BLOOD SPECIMENOrdering Facility: [facility] Address: [address] [place] [address] Performed By: #### 5 8410-2 ####[facility] LABORATORYCLIA [id number] [place] [address] [place] WBC (Bld) [#/Vol] 9.97 10*3/uL Normal 3.70-11.00 [facility] Comment on above: Order Comment: Speci men Type: BLOOD SPECIMENOrdering Facility: [facility] Address: [address] [place] [address] Performed By: #### 5 8410-2 ####[facility] LABORATORYCLIA [id number] [address] [place] CNDSon 09-26-2024 CNDS [facility] CONSULT PROGon 09-26-2024 CONSULT PROG [facility] ANES POSTPROC EVALon 025 ANES POSTPROC EVAL [facility] ANES PRE-OPon 09-25-2024 ANES PRE-OP [facility] Basic metabolic 2000 panelon 09-25-2024 Anion gap [Moles/Vol] 17 mmol/L High 8-15 [facility] Comment on above: Order Comment: Speci men Type: BLOOD SPECIMENOrdering Facility: [facility] Address: [address] [place] [address] Performed By: #### 3 3762-6, 06205-3 ####[facility] LABORATORYCLIA [id number] [place] [address] [place] Calcium [Mass/Vol] 9.2 mg/dL Normal 8.5-10.2 [facility] Comment on above: Order Comment: Speci men Type: BLOOD SPECIMENOrdering Facility: [facility] Address: [address] [place] [address] Performed By: #### 3 3762-6, 19990-5 ####H[facility] LABORATORYCLIA [id number] [place] [address] [place] Chloride [Moles/Vol] 95 mmol/L Low 98-107 [facility] Comment on above: Order Comment: Speci men Type: BLOOD SPECIMENOrdering Facility: [facility] Address: [address] [place] [address] Performed By: #### 3 3762-6, 22092-5 ####[facility] LABORATORYCLIA [id number] [place] [address] [place] CO2 [Moles/Vol] 21 mmol/L Low 22-30 [facility] Comment on above: Order Comment: Speci men Type: BLOOD SPECIMENOrdering Facility: [facility] Address: [address] [place] [address] Performed By: #### 3 3762-6, 70518-4 ####[facility] LABORATORYCLIA [id number] [place] [address] [place] Creatinine [Mass/Vol] 2.92 mg/dL High 0.73-1.22 [facility] Comment on above: Order Comment: Speci men Type: BLOOD SPECIMENOrdering Facility: [facility] Address: [address] [place] [address] Performed By: #### 3 3762-6, 28448-9 ####[facility] LABORATORYCLIA [id number] [address] Creatinine and Glomerular filtration rate.predicted panel (S/P/Bld) 26 mL/min/1.73m??? Low >=60 [facility] Comment on above: Order Comment: Speci men Type: BLOOD SPECIMENOrdering Facility: [facility] Address: [address] [place] [address] Result Comment: Gabby mated Glomerular Filtration Rate (eGFR) is calculated using the 2020 CKD-EPI creatinine equation. This equation utilizes serum creatinine, sex, and age as parameters. The creatinine assay has traceable calibration to isotope dilution-mass spectrometry. Refer to KDIGO guidelines for clinical interpretation. In patients with unstable renal function, e.g. those with acute kidney injury, the eGFR may not accurately reflect actual GFR. Performed By: #### 3 3762-6, 45467-5 ####[facility] LABORATORYCLIA [id number] [place] [address] [place] Glucose [Mass/Vol] 102 mg/dL High 74-99 [facility] Comment on above: Order Comment: Sigrid zepeda Type: BLOOD SPECIMENOrdering Facility: [facility] Address: [address] [place] [address] Result Comment: The [place] Diabetes Association (ADA) provides guidance for cutoff values for fasting glucose and random glucose. The ADA defines fasting as no caloric intake for at least 8 hours. Fasting plasma glucose results between 100 to 125 mg/dL indicate increased risk for diabetes (prediabetes).Fasting plasma glucose results greater than or equal to 126 mg/dL meet the criteria for diagnosis of diabetes. In the absence of unequivocal hyperglycemia, results should be confirmed by repeat testing. In a patient with classic symptoms of hyperglycemia or hyperglycemic crisis, random plasma glucose results greater than or equal to 200 mg/dL meet the criteria for diagnosis of diabetes.Reference: Standards of Medical Care in Diabetes 2016, [place] [employer]. Diabetes Care. 2016.39(Suppl 1). Performed By: #### 3 3762-6, 28459-4 ####[facility] LABORATORYCLIA [id number] [place] [address] [place] Potassium [Moles/Vol] 4.9 mmol/L Normal 3.7-5.1 [facility] Comment on above: Order Comment: Sigrid [facility] Type: BLOOD SPECIMENOrdering Facility: [facility] Address: [address] [place], [place] [address] Performed By: #### 3 3762-6, 45809-3 ####[facility] LABORATORYCLIA [id number] [place] [address] [place] Sodium [Moles/Vol] 133 mmol/L Low 136-144 [facility] Comment on above: Order Comment: Speci men Type: BLOOD SPECIMENOrdering Facility: [facility] Address: [address] [place] [address] Performed By: #### 3 3762-6, 67915-8 ####HOL[facility] LABORATORYCLIA [id number] [place] [address] [place] Urea nitrogen [Mass/Vol] 55 mg/dL High 9-24 [facility] Comment on above: Order Comment: Speci men Type: BLOOD SPECIMENOrdering Facility: [facility] Address: [address] [place] [address] Performed By: #### 3 3762-6, 63072-9 ####HOLT LABORATORYCLIA [id number] [address] [place] CASE MANAGEMon 09-25-2024 CASE MANAGEM Normal [facility] CBC panel Auto (Bld)on 09-25 Erythrocyte distribution width (RBC) [Ratio] 12.8 % Normal 11.5-15.0 [facility] Comment on above: Order Comment: Speci men Type: BLOOD SPECIMENOrdering Facility: [facility] Address: [address] [place] [address] Performed By: #### 5 8410-2 ####HOLT LABORATORYCLIA [id number] [place] [address] [place] Hematocrit (Bld) [Volume fraction] 42.8 % Normal 39.0-51.0 [facility] Comment on above: Order Comment: Speci men Type: BLOOD SPECIMENOrdering Facility: [facility] Address: [address] [place] [address] Performed By: #### 5 8410-2 ####HOLT LABORATORYCLIA [id number] [place] [address] [place] Hemoglobin (Bld) [Mass/Vol] 14.0 g/dL Normal 13.0-17.0 [facility] Comment on above: Order Comment: Speci men Type: BLOOD SPECIMENOrdering Facility: [facility] Address: [address] [place] [address] Performed By: #### 5 8410-2 ####HOLT LABORATORYCLIA [id number] [address] MCH (RBC) [Entitic mass] 30.6 pg Normal 26.0-34.0 [facility] Comment on above: Order Comment: Speci men Type: BLOOD SPECIMENOrdering Facility: [facility] Address: [address] [place] [address] Performed By: #### 5 8410-2 ####HOLT LABORATORYCLIA [id number] [address] MCHC (RBC) [Mass/Vol] 32.7 g/dL Normal 30.5-36.0 [facility] Comment on above: Order Comment: Speci men Type: BLOOD SPECIMENOrdering Facility: [facility] Address: [address] [place] [address] Performed By: #### 5 8410-2 ####HOLT LABORATORYCLIA [id number] [address] MCV (RBC) [Entitic vol] 93.4 fL Normal 80.0-100.0 [facility] Comment on above: Order Comment: Speci men Type: BLOOD SPECIMENOrdering Facility: [facility] Address: [address] [place] [address] Performed By: #### 5 8410-2 ####HOLT LABORATORYCLIA [id number] [address] Nucleated RBC (Bld) [#/Vol] 10*3/uL Normal <0.01 [facility] Comment on above: Order Comment: Speci men Type: BLOOD SPECIMENOrdering Facility: [facility] Address: [address] [place] [address] Performed By: #### 5 8410-2 ####HOLT LABORATORYCLIA [id number] [address] Platelet mean volume (Bld) [Entitic vol] 11.3 fL Normal 9.0-12.7 [facility] Comment on above: Order Comment: Speci men Type: BLOOD SPECIMENOrdering Facility: [facility] Address: [address] [place] [address] Performed By: #### 5 8410-2 ####HOLT LABORATORYCLIA [id number] [address] [place] Platelets (Bld) [#/Vol] 235 10*3/uL Normal 150-400 [facility] Comment on above: Order Comment: Speci men Type: BLOOD SPECIMENOrdering Facility: [facility] Address: [address] [place] [address] Performed By: #### 5 8410-2 ####[facility] LABORATORYCLIA [id number] [place] [address] [place] RBC (Bld) [#/Vol] 4.58 10*6/uL Normal 4.20-6.00 [facility] Comment on above: Order Comment: Speci men Type: BLOOD SPECIMENOrdering Facility: [facility] Address: [address] [place] [address] Performed By: #### 5 8410-2 ####[facility] LABORATORYCLIA [id number] [address] [place] WBC (Bld) [#/Vol] 8.52 10*3/uL Normal 3.70-11.00 [facility] Comment on above: Order Comment: Speci men Type: BLOOD SPECIMENOrdering Facility: [facility] Address: [address] [place] [address] Performed By: #### 5 8410-2 ####[facility] LABORATORYCLIA [id number] [address] [place] CONSULT PROGon 09-25-2024 CONSULT PROG Normal [facility] ECHO TRANSESOPHAGEALon 09-25 ECHO TRANSESOPHAGEAL Normal [facility] NT-proBNP SerPl-mCncon 09-25 Natriuretic peptide.B prohormone N-Terminal [Mass/Vol] 04354 pg/mL High <125 [facility] Comment on above: Order Comment: Speci men Type: BLOOD SPECIMENOrdering Facility: [facility] Address: [address] [place] [address] Performed By: #### 3 3762-6, 95748-6 ####HOLT LABORATORYCLIA [id number] [place] [address] [place] OPERATIVE NOon 09-25-2024 OPERATIVE NO Normal [facility] Basic metabolic 2000 panelon 09-24-2024 Anion gap [Moles/Vol] 17 mmol/L High 8-15 [facility] Comment on above: Order Comment: Speci men Type: BLOOD SPECIMENOrdering Facility: [facility] Address: [address] [place] [address] Performed By: #### 2 4321-2, ####HOLT LABORATORYCLIA [id number] [place] [id number] [place] Calcium [Mass/Vol] 9.1 mg/dL Normal 8.5-10.2 [facility] Comment on above: Order Comment: Speci men Type: BLOOD SPECIMENOrdering Facility: [facility] Address: [facility] [place] [address] Performed By: #### 2 432-2, ####HOLT LABORATORYCLIA [id number] [place] [address] [place] Chloride [Moles/Vol] 93 mmol/L Low 98-107 [facility] Comment on above: Order Comment: Speci men Type: BLOOD SPECIMENOrdering Facility: [facility] Address: [facility] [place] [address] Performed By: #### 2 432-2, ####HOLT LABORATORYCLIA [id number] [place] [address] [place] CO2 [Moles/Vol] 19 mmol/L Low 22-30 [facility] Comment on above: Order Comment: Speci men Type: BLOOD SPECIMENOrdering Facility: [facility] Address: [address] [place] [address] Performed By: #### 2 4321-2, ####HOLT LABORATORYCLIA [id number] [place] [address] [place] Creatinine [Mass/Vol] 2.91 mg/dL High 0.73-1.22 [facility] Comment on above: Order Comment: Sigrid zepeda Type: BLOOD SPECIMENOrdering Facility: [facility] Address: [address] [place] [address] Performed By: #### 2 4321-2, ####HOLT LABORATORYCLIA [id number] [place] [id number] [place] Creatinine and Glomerular filtration rate.predicted panel (S/P/Bld) 26 mL/min/1.73m??? Low >=60 [facility] Comment on above: Order Comment: Sigrid zepeda Type: BLOOD SPECIMENOrdering Facility: [facility] Address: [address] [place] [address] Result Comment: Gabby mated Glomerular Filtration Rate (eGFR) is calculated using the 2020 CKD-EPI creatinine equation. This equation utilizes serum creatinine, sex, and age as parameters. The creatinine assay has traceable calibration to isotope dilution-mass spectrometry. Refer to KDIGO guidelines for clinical interpretation. In patients with unstable renal function, e.g. those with acute kidney injury, the eGFR may not accurately reflect actual GFR. Performed By: #### 2 4321-2, ####HOLT LABORATORYCLIA [id number] [place] [id number] [place] Glucose [Mass/Vol] 104 mg/dL High 74-99 [facility] Comment on above: Order Comment: Sigrid zepeda Type: BLOOD SPECIMENOrdering Facility: [facility] Address: [address] [place] [address] Result Comment: The [place] [employer] (ADA) provides guidance for cutoff values for fasting glucose and random glucose. The ADA defines fasting as no caloric intake for at least 8 hours. Fasting plasma glucose results between 100 to 125 mg/dL indicate increased risk for diabetes (prediabetes).Fasting plasma glucose results greater than or equal to 126 mg/dL meet the criteria for diagnosis of diabetes. In the absence of unequivocal hyperglycemia, results should be confirmed by repeat testing. In a patient with classic symptoms of hyperglycemia or hyperglycemic crisis, random plasma glucose results greater than or equal to 200 mg/dL meet the criteria for diagnosis of diabetes.Reference: Standards of Medical Care in Diabetes 2016, [place] [employer]. Diabetes Care. 2016.39(Suppl 1). Performed By: #### 2 4321-2, ####HOLT LABORATORYCLIA [id number] [place] [address] [place] Potassium [Moles/Vol] 4.3 mmol/L Normal 3.7-5.1 [facility] Comment on above: Order Comment: Speci men Type: BLOOD SPECIMENOrdering Facility: [facility] Address: [address] [place] [address] Performed By: #### 2 4321-2, ####HOLT LABORATORYCLIA [id number] [place] [address] [place] Sodium [Moles/Vol] 129 mmol/L Low 136-144 [facility] Comment on above: Order Comment: Speci men Type: BLOOD SPECIMENOrdering Facility: [facility] Address: [address] [place] [address] Performed By: #### 2 4321-2, ####HOLT LABORATORYCLIA [id number] [place] [address] [place] Urea nitrogen [Mass/Vol] 53 mg/dL High 9-24 [facility] Comment on above: Order Comment: Speci men Type: BLOOD SPECIMENOrdering Facility: [facility] Address: [address] [place] [address] Performed By: #### 2 4321-2, ####HOLT LABORATORYCLIA [id number] [place] [address] [place] CBC panel Auto (Bld)on 09-24 Erythrocyte distribution width (RBC) [Ratio] 12.8 % Normal 11.5-15.0 [facility] Comment on above: Order Comment: Speci men Type: BLOOD SPECIMENOrdering Facility: [facility] Address: [address] [place] [address] Performed By: #### 5 8410-2 ####HOLT LABORATORYCLIA [id number] [address] [place] Hematocrit (Bld) [Volume fraction] 40.8 % Normal 39.0-51.0 [facility] Comment on above: Order Comment: Speci men Type: BLOOD SPECIMENOrdering Facility: [facility] Address: [address] [place] [address] Performed By: #### 5 8410-2 ####HOLT LABORATORYCLIA [id number] [address] Hemoglobin (Bld) [Mass/Vol] 13.9 g/dL Normal 13.0-17.0 [facility] Comment on above: Order Comment: Speci men Type: BLOOD SPECIMENOrdering Facility: [facility] Address: [address] [place] [address] Performed By: #### 5 8410-2 ####HOLT LABORATORYCLIA [id number] [address] MCH (RBC) [Entitic mass] 31.2 pg Normal 26.0-34.0 [facility] Comment on above: Order Comment: Speci men Type: BLOOD SPECIMENOrdering Facility: [facility] Address: [address] [place] [address] Performed By: #### 5 8410-2 ####HOLT LABORATORYCLIA [id number] [address] MCHC (RBC) [Mass/Vol] 34.1 g/dL Normal 30.5-36.0 [facility] Comment on above: Order Comment: Speci men Type: BLOOD SPECIMENOrdering Facility: [facility] Address: [address] [place] [address] Performed By: #### 5 8410-2 ####HOLT LABORATORYCLIA [id number] [address] MCV (RBC) [Entitic vol] 91.5 fL Normal 80.0-100.0 [facility] Comment on above: Order Comment: Speci men Type: BLOOD SPECIMENOrdering Facility: [facility] Address: [address] [place] [address] Performed By: #### 5 8410-2 ####HOLT LABORATORYCLIA [id number] [address] Nucleated RBC (Bld) [#/Vol] 10*3/uL Normal <0.01 [facility] Comment on above: Order Comment: Speci men Type: BLOOD SPECIMENOrdering Facility: [facility] Address: [facility] [place] [address] Performed By: #### 5 8410-2 ####HOLT LABORATORYCLIA [id number] [place] [address] [place] Platelet mean volume (Bld) [Entitic vol] 10.7 fL Normal 9.0-12.7 [facility] Comment on above: Order Comment: Speci men Type: BLOOD SPECIMENOrdering Facility: [facility] Address: [address] [place] [address] Performed By: #### 5 8410-2 ####HOLT LABORATORYCLIA [id number] [place] [address] [place] Platelets (Bld) [#/Vol] 235 10*3/uL Normal 150-400 [facility] Comment on above: Order Comment: Speci men Type: BLOOD SPECIMENOrdering Facility: [facility] Address: [address] [place] [address] Performed By: #### 5 8410-2 ####HOLT LABORATORYCLIA [id number] [place] [address] [place] RBC (Bld) [#/Vol] 4.46 10*6/uL Normal 4.20-6.00 [facility] Comment on above: Order Comment: Speci men Type: BLOOD SPECIMENOrdering Facility: [facility] Address: [address] [place] [address] Performed By: #### 5 8410-2 ####HOLT LABORATORYCLIA [id number] [place] [address] [place] WBC (Bld) [#/Vol] 9.39 10*3/uL Normal 3.70-11.00 [facility] Comment on above: Order Comment: Speci men Type: BLOOD SPECIMENOrdering Facility: [facility] Address: [address] [place] [address] Performed By: #### 5 8410-2 ####HOLT LABORATORYCLIA [id number] [place] [address] [place] CONSULT PROGon 09-24-2024 CONSULT PROG Normal [facility] CONSULT PROG Normal [facility] Magnesium SerPl-mCncon 09-24 Magnesium [Mass/Vol] 2.1 mg/dL Normal 1.7-2.3 [facility] Comment on above: Order Comment: Speci men Type: BLOOD SPECIMENOrdering Facility: [facility] Address: [address] [place] [address] Performed By: #### 2 4321-2, 61051-3 ####[facility] LABORATORYCLIA [id number] [place] [address] [place] Basic metabolic 2000 panelon 09-23-2024 Anion gap [Moles/Vol] 14 mmol/L Normal 8-15 [facility] Comment on above: Order Comment: Speci men Type: BLOOD SPECIMENOrdering Facility: [facility] Address: [address] [place] [address] Performed By: #### 1 9123-9, 88027-4 ####[facility] LABORATORYCLIA [id number] [place] [address] [place] Calcium [Mass/Vol] 9.4 mg/dL Normal 8.5-10.2 [facility] Comment on above: Order Comment: Speci men Type: BLOOD SPECIMENOrdering Facility: [facility] Address: [address] [place] [address] Performed By: #### 1 9123-9, 41630-6 ####HOLT LABORATORYCLIA [id number] [place] [address] [place] Chloride [Moles/Vol] 93 mmol/L Low 98-107 [facility] Comment on above: Order Comment: Speci men Type: BLOOD SPECIMENOrdering Facility: [facility] Address: [address] [place] [address] Performed By: #### 1 9123-9, 97824-4 ####HOLT LABORATORYCLIA [id number] [place] [address] [place] CO2 [Moles/Vol] 22 mmol/L Normal 22-30 [facility] Comment on above: Order Comment: Speci men Type: BLOOD SPECIMENOrdering Facility: [facility] Address: [address] [place] [address] Performed By: #### 1 9123-9, 01644-4 ####HOLT LABORATORYCLIA [id number] [place] [id number] [place] Creatinine [Mass/Vol] 1.85 mg/dL High 0.73-1.22 [facility] Comment on above: Order Comment: Sigrid duane Type: BLOOD SPECIMENOrdering Facility: [facility] Address: [address] [place] [address] Performed By: #### 1 9123-9, 64334-5 ####HOLT LABORATORYCLIA [id number] [place] [id number] [place] Creatinine and Glomerular filtration rate.predicted panel (S/P/Bld) 44 mL/min/1.73m??? Low >=60 [facility] Comment on above: Order Comment: Sigrid duane Type: BLOOD SPECIMENOrdering Facility: [facility] Address: [address] [place] [address] Result Comment: Gabby mated Glomerular Filtration Rate (eGFR) is calculated using the 2020 CKD-EPI creatinine equation. This equation utilizes serum creatinine, sex, and age as parameters. The creatinine assay has traceable calibration to isotope dilution-mass spectrometry. Refer to KDIGO guidelines for clinical interpretation. In patients with unstable renal function, e.g. those with acute kidney injury, the eGFR may not accurately reflect actual GFR. Performed By: #### 1 9123-9, 28203-1 ####HOLT LABORATORYCLIA [id number] [place] [id number] [place] Glucose [Mass/Vol] 91 mg/dL Normal 74-99 [facility] Comment on above: Order Comment: Sigrid zepeda Type: BLOOD SPECIMENOrdering Facility: [facility] Address: [address] [place] [address] Result Comment: The [place] Diabetes [employer] (ADA) provides guidance for cutoff values for fasting glucose and random glucose. The ADA defines fasting as no caloric intake for at least 8 hours. Fasting plasma glucose results between 100 to 125 mg/dL indicate increased risk for diabetes (prediabetes).Fasting plasma glucose results greater than or equal to 126 mg/dL meet the criteria for diagnosis of diabetes. In the absence of unequivocal hyperglycemia, results should be confirmed by repeat testing. In a patient with classic symptoms of hyperglycemia or hyperglycemic crisis, random plasma glucose results greater than or equal to 200 mg/dL meet the criteria for diagnosis of diabetes.Reference: Standards of Medical Care in Diabetes 2016, [place] [employer]. Diabetes Care. 2016.39(Suppl 1). Performed By: #### 1 9123-9, 63728-6 ####[facility] LABORATORYCLIA [id number] [place] [address] [place] Potassium [Moles/Vol] Normal [facility] Comment on above: Order Comment: Sigrid zepeda Type: BLOOD SPECIMENOrdering Facility: [facility] Address: [address] [place] [address] Result Comment: Unab le to assay due to interference from hemolysis. Suggest reorder as clinically indicated. Performed By: #### 1 91239, 75573-7 ####HOLT LABORATORYCLIA [id number] [place] [address] [place] Sodium [Moles/Vol] 129 mmol/L Low 136-144 [facility] Comment on above: Order Comment: Sigrid zepeda Type: BLOOD SPECIMENOrdering Facility: [facility] Address: [address] [place] [address] Performed By: #### 1 91239, 08192-0 ####[facility] LABORATORYCLIA [id number] [place] [address] [place] Urea nitrogen [Mass/Vol] 42 mg/dL High 9-24 [facility] Comment on above: Order Comment: Sigrid zepeda Type: BLOOD SPECIMENOrdering Facility: [facility] Address: [address] [place] [address] Performed By: #### 1 91239, 65340-1 ####[facility] LABORATORYCLIA [id number] [place] [address] [place] CBC panel Auto (Bld)on 09-23 Erythrocyte distribution width (RBC) [Ratio] 12.8 % Normal 11.5-15.0 [facility] Comment on above: Order Comment: Speci men Type: BLOOD SPECIMENOrdering Facility: [facility] Address: [address] [place] [address] Performed By: #### 5 8410-2 ####HOLT LABORATORYCLIA [id number] [address] Hematocrit (Bld) [Volume fraction] 41.8 % Normal 39.0-51.0 [facility] Comment on above: Order Comment: Speci men Type: BLOOD SPECIMENOrdering Facility: [facility] Address: [address] [place] [address] Performed By: #### 5 8410-2 ####HOLT LABORATORYCLIA [id number] [address] [place] Hemoglobin (Bld) [Mass/Vol] 13.6 g/dL Normal 13.0-17.0 [facility] Comment on above: Order Comment: Speci men Type: BLOOD SPECIMENOrdering Facility: [facility] Address: [address] [place] [address] Performed By: #### 5 8410-2 ####HOLT LABORATORYCLIA [id number] [address] MCH (RBC) [Entitic mass] 31.0 pg Normal 26.0-34.0 [facility] Comment on above: Order Comment: Speci men Type: BLOOD SPECIMENOrdering Facility: [facility] Address: [address] [place] [address] Performed By: #### 5 8410-2 ####HOLT LABORATORYCLIA [id number] [address] MCHC (RBC) [Mass/Vol] 32.5 g/dL Normal 30.5-36.0 [facility] Comment on above: Order Comment: Speci men Type: BLOOD SPECIMENOrdering Facility: [facility] Address: [address] [place] [address] Performed By: #### 5 8410-2 ####HOLT LABORATORYCLIA [id number] [address] MCV (RBC) [Entitic vol] 95.2 fL Normal 80.0-100.0 [facility] Comment on above: Order Comment: Speci men Type: BLOOD SPECIMENOrdering Facility: [facility] Address: [address] [place] [address] Performed By: #### 5 8410-2 ####HOL[facility] LABORATORYCLIA [id number] [address] [place] Nucleated RBC (Bld) [#/Vol] 10*3/uL Normal <0.01 [facility] Comment on above: Order Comment: Speci men Type: BLOOD SPECIMENOrdering Facility: [facility] Address: [address] [place] [address] Performed By: #### 5 8410-2 ####HOL[facility] LABORATORYCLIA [id number] [address] Platelet mean volume (Bld) [Entitic vol] 11.0 fL Normal 9.0-12.7 [facility] Comment on above: Order Comment: Speci men Type: BLOOD SPECIMENOrdering Facility: [facility] Address: [address] [place] [address] Performed By: #### 5 8410-2 ####HOLT LABORATORYCLIA [id number] [address] [place] Platelets (Bld) [#/Vol] 245 10*3/uL Normal 150-400 [facility] Comment on above: Order Comment: Speci men Type: BLOOD SPECIMENOrdering Facility: [facility] Address: [address] [place] [address] Performed By: #### 5 8410-2 ####HOLT LABORATORYCLIA [id number] [address] [place] RBC (Bld) [#/Vol] 4.39 10*6/uL Normal 4.20-6.00 [facility] Comment on above: Order Comment: Speci men Type: BLOOD SPECIMENOrdering Facility: [facility] Address: [address] [place] [address] Performed By: #### 5 8410-2 ####HOLT LABORATORYCLIA [id number] [address] WBC (Bld) [#/Vol] 8.61 10*3/uL Normal 3.70-11.00 [facility] Comment on above: Order Comment: Speci men Type: BLOOD SPECIMENOrdering Facility: [facility] Address: [address] [place] [address] Performed By: #### 5 8410-2 ####[facility] LABORATORYCLIA [id number] [place] [id number] [facility] [place] CONSULT PROGon 09-23-2024 [facility] Magnesium SerPl-mCncon 09-23 Magnesium [Mass/Vol] 2.3 mg/dL Normal 1.7-2.3 [facility] Comment on above: Order Comment: Speci men Type: BLOOD SPECIMENOrdering Facility: [facility] Address: [address] [place] [address] Performed By: #### 1 9123-9, 14258-8 ####[facility] LABORATORYCLIA [id number] [address] NURSING PROGon 09-23-2024 [facility] Osmolality SerPlon 4 Osmolality [Osmolality] 287 mosm/kg Normal 275-300 [facility] Comment on above: Order Comment: Speci men Type: BLOOD SPECIMENOrdering Facility: [facility] Address: [address] [place] [address] Performed By: #### 2 692-2 ####[facility] LABCLIA [id number] [facility] [id number] [place] POTASSIUMon 09-23-2024 Potassium [Moles/Vol] 4.6 mmol/L Normal 3.7-5.1 [facility] Comment on above: Order Comment: Speci men Type: BLOOD SPECIMENOrdering Facility: [facility] Address: [address] [place] [address] Performed By: #### T SHRF, K1 ####[facility] LABORATORYCLIA [id number] [address] [place] PT EDon 09-23-2024 PT ED [facility] TSH W/REFLEX FT4on 4 TSH Qn 3.900 m[IU]/L Normal 0.270-4.200 [facility] Comment on above: Order Comment: Speci men Type: BLOOD SPECIMENOrdering Facility: [facility] Address: [address] [place] [address] Performed By: #### T [facility], K1 ####[facility] LABORATORYCLIA [id number] [place] [id number] [place] ALLIED HEALTHon 09-22-2024 ALLIED HEALTH Normal [facility] Basic metabolic 2000 panelon 09-22-2024 Anion gap [Moles/Vol] 15 mmol/L Normal 8-15 [facility] Comment on above: Order Comment: Speci men Type: BLOOD SPECIMENOrdering Facility: [facility] Address: [address] [place] [address] Performed By: #### 3 084-1, 0-3, , 60868-2 ####[facility] LABORATORYCLIA [id number] [place] [address] [place] Calcium [Mass/Vol] 9.8 mg/dL Normal 8.5-10.2 [facility] Comment on above: Order Comment: Speci men Type: BLOOD SPECIMENOrdering Facility: [facility] Address: [address] [place] [address] Performed By: #### 3 084-1, 3040-3, , 96980-6 ####[facility] LABORATORYCLIA [id number] [place] [id number] [place] Chloride [Moles/Vol] 91 mmol/L Low 98-107 [facility] Comment on above: Order Comment: Speci men Type: BLOOD SPECIMENOrdering Facility: [facility] Address: [address] [place] [address] Performed By: #### 3 084-1, 3040-3, , 98865-6 ####[facility]ORATORYCLIA [id number] [place] [id number] [place] CO2 [Moles/Vol] 22 mmol/L Normal -30 [facility] Comment on above: Order Comment: Sigrid zepeda Type: BLOOD SPECIMENOrdering Facility: [facility] Address: [address] [place] [address] Performed By: #### 3 084-1, 3040-3, , 97497-9 ####[facility] LABORATORYCLIA [id number] [place] [address] [place] Creatinine [Mass/Vol] 1.91 mg/dL High 0.73-1.22 [facility] Comment on above: Order Comment: Specgokul men Type: BLOOD SPECIMENOrdering Facility: [facility] Address: [address] [place] [address] Performed By: #### 3 084-1, 3040-3, , ####[facility] LABORATORYCLIA [id number] [address] [place] Creatinine and Glomerular filtration rate.predicted panel (S/P/Bld) 42 mL/min/1.73m??? Low >=60 [facility] Comment on above: Order Comment: [facility] Type: BLOOD SPECIMENOrdering Facility: [facility] Address: [address] [place] [address] Result Comment: Gabby mated Glomerular Filtration Rate (eGFR) is calculated using the 2020 CKD-EPI creatinine equation. This equation utilizes serum creatinine, sex, and age as parameters. The creatinine assay has traceable calibration to isotope dilution-mass spectrometry. Refer to KDIGO guidelines for clinical interpretation. In patients with unstable renal function, e.g. those with acute kidney injury, the eGFR may not accurately reflect actual GFR. Performed By: #### 3 084-1, 3040-3, , 68752-5 ####[facility]ORATORYCLIA [id number] [place] [id number] [place] Glucose [Mass/Vol] 114 mg/dL High 74-99 [facility] Comment on above: Order Comment: Sigrid duane Type: BLOOD SPECIMENOrdering Facility: [facility] Address: [address] [place] [address] Result Comment: The [place] Diabetes Association (ADA) provides guidance for cutoff values for fasting glucose and random glucose. The ADA defines fasting as no caloric intake for at least 8 hours. Fasting plasma glucose results between 100 to 125 mg/dL indicate increased risk for diabetes (prediabetes).Fasting plasma glucose results greater than or equal to 126 mg/dL meet the criteria for diagnosis of diabetes. In the absence of unequivocal hyperglycemia, results should be confirmed by repeat testing. In a patient with classic symptoms of hyperglycemia or hyperglycemic crisis, random plasma glucose results greater than or equal to 200 mg/dL meet the criteria for diagnosis of diabetes.Reference: Standards of Medical Care in Diabetes 2016, [place] [employer]. Diabetes Care. 2016.39(Suppl 1). Performed By: #### 3 084-1, 3040-3, , 68210-2 ####[facility] LABORATORYCLIA [id number] [place] [address] [place] Potassium [Moles/Vol] 5.1 mmol/L Normal 3.7-5.1 [facility] Comment on above: Order Comment: Sigrid zepeda Type: BLOOD SPECIMENOrdering Facility: [facility] Address: [address] [place] [address] Performed By: #### 3 084-1, 3040-3, , 87415-5 ####[facility] LABORATORYCLIA [id number] [place] [address] [place] Sodium [Moles/Vol] 128 mmol/L Low 136-144 [facility] Comment on above: Order Comment: Sigrid zepeda Type: BLOOD SPECIMENOrdering Facility: [facility] Address: [address] [place] [address] Performed By: #### 3 084-1, 3040-3, , 75747-8 ####[facility] LABORATORYCLIA [id number] [place] [id number] [place] Urea nitrogen [Mass/Vol] 37 mg/dL High 9-24 [facility] Comment on above: Order Comment: Sigrid zepeda Type: BLOOD SPECIMENOrdering Facility: [facility] Address: [address] [place] [address] Performed By: #### 3 084-1, 3040-3, , 18989-9 ####[facility] LABORATORYCLIA [id number] [place] [id number] [place] CASE MGT INIT ASSESon 2023 CASE MGT INIT ASS Normal [facility] CBC panel Auto (Bld)on 09-22 Erythrocyte distribution width (RBC) [Ratio] 12.7 % Normal 11.5-15.0 [facility] Comment on above: Order Comment: Speci men Type: BLOOD SPECIMENOrdering Facility: [facility] Address: [address] [place] [address] Performed By: #### 5 8410-2 ####[facility] LABORATORYCLIA [id number] [address] Hematocrit (Bld) [Volume fraction] 43.2 % Normal 39.0-51.0 [facility] Comment on above: Order Comment: Speci men Type: BLOOD SPECIMENOrdering Facility: [facility] Address: [address] [place] [address] Performed By: #### 5 8410-2 ####[facility] LABORATORYCLIA [id number] [address] [place] Hemoglobin (Bld) [Mass/Vol] 14.5 g/dL Normal 13.0-17.0 [facility] Comment on above: Order Comment: Speci men Type: BLOOD SPECIMENOrdering Facility: [facility] Address: [address] [place] [address] Performed By: #### 5 8410-2 ####[facility] LABORATORYCLIA [id number] [address] [place] MCH (RBC) [Entitic mass] 31.3 pg Normal 26.0-34.0 [facility] Comment on above: Order Comment: Speci men Type: BLOOD SPECIMENOrdering Facility: [facility] Address: [address] [place] [address] Performed By: #### 5 8410-2 ####[facility] LABORATORYCLIA [id number] [address] [place] MCHC (RBC) [Mass/Vol] 33.6 g/dL Normal 30.5-36.0 [facility] Comment on above: Order Comment: Speci men Type: BLOOD SPECIMENOrdering Facility: [facility] Address: [address] [place] [address] Performed By: #### 5 8410-2 ####[facility] LABORATORYCLIA [id number] [place] [address] [place] MCV (RBC) [Entitic vol] 93.3 fL Normal 80.0-100.0 [facility] Comment on above: Order Comment: Speci men Type: BLOOD SPECIMENOrdering Facility: [facility] Address: [address] [place] [address] Performed By: #### 5 8410-2 ####[facility] LABORATORYCLIA [id number] [address] [place] Nucleated RBC (Bld) [#/Vol] 10*3/uL Normal <0.01 [facility] Comment on above: Order Comment: Speci men Type: BLOOD SPECIMENOrdering Facility: [facility] Address: [address] [place] [address] Performed By: #### 5 8410-2 ####[facility] LABORATORYCLIA [id number] [address] [place] Platelet mean volume (Bld) [Entitic vol] 11.0 fL Normal 9.0-12.7 [facility] Comment on above: Order Comment: Speci men Type: BLOOD SPECIMENOrdering Facility: [facility] Address: [address] [place] [address] Performed By: #### 5 8410-2 ####[facility] LABORATORYCLIA [id number] [address] [place] Platelets (Bld) [#/Vol] 265 10*3/uL Normal 150-400 [facility] Comment on above: Order Comment: Speci men Type: BLOOD SPECIMENOrdering Facility: [facility] Address: [address] [place] [address] Performed By: #### 5 8410-2 ####[facility] LABORATORYCLIA [id number] [address] [place] RBC (Bld) [#/Vol] 4.63 10*6/uL Normal 4.20-6.00 [facility] Comment on above: Order Comment: Speci men Type: BLOOD SPECIMENOrdering Facility: [facility] Address: [address] [place] [address] Performed By: #### 5 8410-2 ####[facility] LABORATORYCLIA [id number] [place] [address] [facility] [place] WBC (Bld) [#/Vol] 12.04 10*3/uL High 3.70-11.00 [facility] Comment on above: Order Comment: Speci men Type: BLOOD SPECIMENOrdering Facility: [facility] Address: [address] [place] [address] Performed By: #### 5 8410-2 ####[facility] LABORATORYCLIA [id number] [place] [id number] [facility] CONSULTon 09-22-2024 CONSULT Normal [facility] CONSULT Normal [facility] ED NOTEon 09-22-2024 ED NOTE HNO ID: [id number] Author: YOAN HENSLEY, RN Service: ? Author Type: Registered Nurse Type: ED Notes Filed: 09/22/2024 00:34 Note Text: MD Trevino, notified of patient bp, will continue to monitor Normal [facility] ED PROV NOTEon 09-22-2024 ED PROV NOTE Normal [facility] HIGH SENSITIVITY TROPONIN T (SECOND)on 09-22-2024 Troponin T.cardiac High sensitivity method [Mass/Vol] 70 ng/L High <12 [facility] Comment on above: Order Comment: Speci men Type: BLOOD SPECIMENOrdering Facility: [facility] Address: [address] [place], [place] [address] Performed By: #### L [id number] ####[facility] LABORATORYCLIA [id number] [place] [id number] [facility] HIGH SENSITIVITY TROPONIN T (THIRD) 3 HRS AFTER INITIALon 09-22-2024 Troponin T.cardiac High sensitivity method [Mass/Vol] 60 ng/L High <12 [facility] Comment on above: Order Comment: Speci men Type: BLOOD SPECIMENOrdering Facility: [facility] Address: [address] [place], [place] [address] Performed By: #### 3 3959-8, [id number] ####[facility] LABORATORYCLIA [id number] [address] HISTORY PHYSICALon HISTORY PHYSICAL Normal [facility] Lipase SerPl-cCncon 09-22-20 24 Lipase [Catalytic activity/Vol] 130 U/L High 16-61 [facility] Comment on above: Order Comment: Speci men Type: BLOOD SPECIMENOrdering Facility: [facility] Address: [address] [place] [address] Performed By: #### 3 084-1, 3040-3, 95112-4, 76833-4 ####[facility]ORATORYCLIA [id number] [address] Magnesium SerPl-mCncon 09-22 Magnesium [Mass/Vol] 2.4 mg/dL High 1.7-2.3 [facility] Comment on above: Order Comment: Speci men Type: BLOOD SPECIMENOrdering Facility: [facility] Address: [address] [place] [address] Performed By: #### 3 084-1, 3040-3, 27883-4, 21382-1 ####[facility] LABORATORYCLIA [id number] [place] [address] [place] NURSING PROGon 09-22-2024 NURSING PROG Normal [facility] Osmolality Uron 09-22-2024 Osmolality (U) [Osmolality] 246 mosm/kg Normal 50-1200 [facility] Comment on above: Order Comment: Speci men Type: URINE SPECIMENOrdering Facility: [facility] Address: [address] [place] [address] Performed By: #### 2 695-5 ####[facility] LABCLIA [id number] [place] [address] [place] PT panel Coag (PPP)on 2023 INR Coag (PPP) [Relative time] 1.3 {INR} Normal 0.9-1.3 [facility] Comment on above: Order Comment: Speci men Type: BLOOD SPECIMENOrdering Facility: [facility] Address: [address] [place] [address] Result Comment: Sagrario min K Antagonist (VKA) Therapeutic Range: INR 2 to 3 (Target INR of 2.5)Note: For patients treated with VKA drugs, such as warfarin, the [place] [employer] 2012 Guideline recommends a therapeutic INR range of 2 to 3 (target INR of 2.5). This recommendation includes high-risk patients with antiphospholipid syndrome with previous arterial or venous thromboembolism, current-generation mechanical or bioprosthetic aortic heart valve replacement.Note: Patients with mechanical aortic valve replacement and additional risk factors for thromboembolic events (atrial fibrillation, previous thromboembolism, LV dysfunction, hypercoagulable conditions) or an older generation mechanical AVR (i.e., ball in-Cage) or any mechanical MVR should have a INR therapeutic range of 2.5 to 3.5 (target INR of 3).Ej GH, et al. Chest 2012, 141:7S-47SNishimbeverly RA, et al. [facility] 2017, 70: 252-289 Performed By: #### 3 4528-0, 89615-4 ####[facility] LABORATORYCLIA [id number] [place] [id number] [place] PT Coag (PPP) [Time] 13.6 s High 9.7-13.0 [facility] Comment on above: Order Comment: Sigrid zepeda Type: BLOOD SPECIMENOrdering Facility: [facility] Address: [address] [place] [address] Performed By: #### 3 4528-0, 71344-0 ####[facility] LABORATORYCLIA [id number] [place] [address] [place] Procalcitonin SerPl-mCncon 1 Procalcitonin [Mass/Vol] 0.10 ng/mL High <0.09 [facility] Comment on above: Order Comment: iSgrid zepeda Type: BLOOD SPECIMENOrdering Facility: [facility] Address: [address] [place] [address] Result Comment: For a guided interpretation of test results, please visit the Change in Procalcitonin Calculator, [email or web address]. Performed By: #### 3 3959-8, [id number] ####[facility] LABORATORYCLIA [id number] [address] [place] Sodium ?Tm Ur-sCncon 024 Sodium Unsp time (U) [Moles/Vol] <20 Normal 14-216 [facility] Comment on above: Order Comment: Speci men Type: URINE SPECIMENOrdering Facility: [facility] Address: [address] [place] [address] Result Comment: Resu lt rechecked. Performed By: #### 3 5678-2 ####[facility] LABCLIA [id number] [facility] [id number] [place] [address] [place] URINALYSIS, REFLEX MICROSCOP ICon 09-22-2024 Bilirubin Ql (U) Negative Normal Negative [facility] Comment on above: Order Comment: Speci men Type: URINE SPECIMENOrdering Facility: [facility] Address: [address] [place] [address] Performed By: #### L [id number] ####[facility] LABORATORYCLIA [id number] [address] Clarity (Unsp spec) Clear Normal Clear [facility] Comment on above: Order Comment: Speci men Type: URINE SPECIMENOrdering Facility: [facility] Address: [address] [place] [address] Performed By: #### L [id number] ####[facility] LABORATORYCLIA [id number] [address] [place] Color (U) Yellow Normal Yellow [facility] Comment on above: Order Comment: Speci men Type: URINE SPECIMENOrdering Facility: [facility] Address: [address] [place] [address] Performed By: #### L [id number] ####[facility] LABORATORYCLIA [id number] [address] Glucose Test strip (U) [Mass/Vol] Negative Normal Negative [facility] Comment on above: Order Comment: Speci men Type: URINE SPECIMENOrdering Facility: [facility] Address: [address] [place] [address] Performed By: #### L [id number] ####[facility] LABORATORYCLIA [id number] [address] Hemoglobin Ql (U) Negative Normal Negative [facility] Comment on above: Order Comment: Speci men Type: URINE SPECIMENOrdering Facility: [facility] Address: [address] [place] [address] Performed By: #### L [id number] ####[facility] LABORATORYCLIA [id number] [place] [address] [place] Ketones Ql (U) Negative Normal Negative [facility] Comment on above: Order Comment: Speci men Type: URINE SPECIMENOrdering Facility: [facility] Address: [address] [place] [address] Performed By: #### L [id number] ####[facility] LABORATORYCLIA [id number] [address] Leukocyte esterase Test strip Ql (U) Negative Normal Negative [facility] Comment on above: Order Comment: Speci men Type: URINE SPECIMENOrdering Facility: [facility] Address: [address] [place] [address] Performed By: #### L [id number] ####[facility] LABORATORYCLIA [id number] [address] STATES [facility] Nitrite Ql (U) Negative Normal Negative [facility] Comment on above: Order Comment: Speci men Type: URINE SPECIMENOrdering Facility: [facility] Address: [address] [place] [address] Performed By: #### L [id number] ####[facility] LABORATORYCLIA [id number] [address] [place] pH (U) 6.0 [pH] Normal 5.0-8.0 [facility] Comment on above: Order Comment: Speci men Type: URINE SPECIMENOrdering Facility: [facility] Address: [address] [place] [address] Performed By: #### L [id number] ####[facility] LABORATORYCLIA [id number] [address] [place] Protein (U) [Mass/Vol] Negative Normal Negative [facility] Comment on above: Order Comment: Speci men Type: URINE SPECIMENOrdering Facility: [facility] Address: [address] [place] [address] Performed By: #### L [id number] ####[facility] LABORATORYCLIA [id number] [address] [place] Specific gravity (U) [Rel density] 1.010 Normal 1.005-1.030 [facility] Comment on above: Order Comment: Speci men Type: URINE SPECIMENOrdering Facility: [facility] Address: [address] [place] [address] Performed By: #### L [id number] ####[facility] LABORATORYCLIA [id number] [address] Urobilinogen Ql (U) 0.2 EU/dL Normal 0.2-1.0 EU/dL [facility] Comment on above: Order Comment: Speci men Type: URINE SPECIMENOrdering Facility: [facility] Address: [address] [place] [address] Performed By: #### L [id number] ####[facility] LABORATORYCLIA [id number] [place] [address] [place] US ABD RIGHT UPPER QUADRANTo n 09-22-2024 US ABD RIGHT UPPER QUADRANT Normal [facility] US ABD SPLEEN -NBon 09-22-20 24 US ABD SPLEEN -NB Normal [facility] Urate SerPl-mCncon 4 Urate [Mass/Vol] 13.1 mg/dL High 4.0-8.1 [facility] Comment on above: Order Comment: Speci men Type: BLOOD SPECIMENOrdering Facility: [facility] Address: [address] [place] [address] Performed By: #### 3 084-1, 3040-3, 63456-5, 23182-6 ####[facility] LABORATORYCLIA [id number] [place] [address] [place] aPTT PPPon 09-22-2024 aPTT Coag (PPP) [Time] 28.6 s Normal 23.0-32.4 [facility] Comment on above: Order Comment: Speci men Type: BLOOD SPECIMENOrdering Facility: [facility] Address: [address] [place] [address] Performed By: #### 3 4528-0, 26480-4 ####[facility] LABORATORYCLIA [id number] [place] [address] [place] ALLIED HEALTHon 09-21-2024 ALLIED HEALTH Normal [facility] CBC W Auto Differential pane l (Bld)on 09-21-2024 Basophils (Bld) [#/Vol] 0.06 10*3/uL Normal <0.11 [facility] Comment on above: Order Comment: Speci men Type: BLOOD SPECIMENOrdering Facility: [facility] Address: [address] [place] [address] Performed By: #### 5 7021-8 ####[facility] LABORATORYCLIA [id number] [place] [address] [place]#### 01655-1 ####[facility] LABCLIA [id number] [place] [address] [place] Basophils/100 WBC (Bld) 0.5 % Normal [facility] Comment on above: Order Comment: Speci men Type: BLOOD SPECIMENOrdering Facility: [facility] Address: [address] [place] [address] Performed By: #### 5 7021-8 ####[facility] LABORATORYCLIA [id number] [place] [address] [place]#### 78301-3 ####[facility] LABCLIA [id number] [place] [address] [place] Differential cell count method Nom (Bld) Auto Normal [facility] Comment on above: Order Comment: Speci men Type: BLOOD SPECIMENOrdering Facility: [facility] Address: [address] [place] [address] Performed By: #### 5 7021-8 ####[facility] LABORATORYCLIA [id number] [address]#### 94274-8 ####[facility] LABCLIA [id number] [place] [address] [place] Eosinophils (Bld) [#/Vol] 0.17 10*3/uL Normal <0.46 [facility] Comment on above: Order Comment: Speci men Type: BLOOD SPECIMENOrdering Facility: [facility] Address: [address] [place] [address] Performed By: #### 5 7021-8 ####[facility] LABORATORYCLIA [id number] [address] [place]#### 59503-8 ####[facility] LABCLIA [id number] [place] [address] [place] Eosinophils/100 WBC (Bld) 1.5 % Normal [facility] Comment on above: Order Comment: Speci men Type: BLOOD SPECIMENOrdering Facility: [facility] Address: [address] [place] [address] Performed By: #### 5 7021-8 ####[facility] LABORATORYCLIA [id number] [address] [place]#### 09634-1 ####[facility] LABCLIA [id number] [place] [address] [place] Erythrocyte distribution width (RBC) [Ratio] 12.7 % Normal 11.5-15.0 [facility] Comment on above: Order Comment: Speci men Type: BLOOD SPECIMENOrdering Facility: [facility] Address: [address] [place] [address] Performed By: #### 5 7021-8 ####[facility] LABORATORYCLIA [id number] [address] [place]#### 56617-3 ####[facility] LABCLIA [id number] [place] [address] [place] Hematocrit (Bld) [Volume fraction] 43.8 % Normal 39.0-51.0 [facility] Comment on above: Order Comment: Speci men Type: BLOOD SPECIMENOrdering Facility: [facility] Address: [address] [place] [address] Performed By: #### 5 7021-8 ####[facility] LABORATORYCLIA [id number] [address] [place]#### 60993-1 ####[facility] LABCLIA [id number] [place] [address] [place] Hemoglobin (Bld) [Mass/Vol] 14.7 g/dL Normal 13.0-17.0 [facility] Comment on above: Order Comment: Speci men Type: BLOOD SPECIMENOrdering Facility: [facility] Address: [address] [place] [address] Performed By: #### 5 7021-8 ####[facility] LABORATORYCLIA [id number] [place] [address] [place]#### 71650-8 ####[facility] LABCLIA [id number] [place] [address] [place] Immature granulocytes (Bld) [#/Vol] 0.05 10*3/uL Normal <0.10 [facility] Comment on above: Order Comment: Speci men Type: BLOOD SPECIMENOrdering Facility: [facility] Address: [address] [place] [address] Performed By: #### 5 7021-8 ####[facility] LABORATORYCLIA [id number] [place] [address] [place]#### 20360-6 ####[facility] LABCLIA [id number] [place] [address] [place] Immature granulocytes/100 WBC (Bld) 0.4 % Normal [facility] Comment on above: Order Comment: Speci men Type: BLOOD SPECIMENOrdering Facility: [facility] Address: [address] [place] [address] Performed By: #### 5 7021-8 ####[facility] LABORATORYCLIA [id number] [place] [address] [place] [facility] [place]#### 57362-2 ####[facility] LABCLIA [id number] [place] [address] [place] Lymphocytes (Bld) [#/Vol] 1.83 10*3/uL Normal 1.00-4.00 [facility] Comment on above: Order Comment: Speci men Type: BLOOD SPECIMENOrdering Facility: [facility] Address: [address] [place] [address] Performed By: #### 5 7021-8 ####[facility] LABORATORYCLIA [id number] [address] [place]#### 88120-7 ####[facility] LABCLIA [id number] [place] [address] [place] Lymphocytes/100 WBC (Bld) 16.2 % Normal [facility] Comment on above: Order Comment: Speci men Type: BLOOD SPECIMENOrdering Facility: [facility] Address: [address] [place] [address] Performed By: #### 5 7021-8 ####[facility] LABORATORYCLIA [id number] [place] [address] [place] [facility] [place]#### 54231-7 ####[facility] LABCLIA [id number] [place] [address] [place] MCH (RBC) [Entitic mass] 31.0 pg Normal 26.0-34.0 [facility] Comment on above: Order Comment: Speci men Type: BLOOD SPECIMENOrdering Facility: [facility] Address: [address] [place] [address] Performed By: #### 5 7021-8 ####[facility] LABORATORYCLIA [id number] [place] [address] [place]#### 99379-1 ####[facility] LABCLIA [id number] [place] [address] [place] MCHC (RBC) [Mass/Vol] 33.6 g/dL Normal 30.5-36.0 [facility] Comment on above: Order Comment: Speci men Type: BLOOD SPECIMENOrdering Facility: [facility] Address: [address] [place] [address] Performed By: #### 5 7021-8 ####[facility] LABORATORYCLIA [id number] [place] [address] [place]#### 30893-0 ####[facility] LABCLIA [id number] [place] [address] [place] MCV (RBC) [Entitic vol] 92.4 fL Normal 80.0-100.0 [facility] Comment on above: Order Comment: Speci men Type: BLOOD SPECIMENOrdering Facility: [facility] Address: [address] [place] [address] Performed By: #### 5 7021-8 ####[facility] LABORATORYCLIA [id number] [place] [address] [place]#### 24908-2 ####[facility] LABCLIA [id number] [place] [address] [place] Monocytes (Bld) [#/Vol] 0.90 10*3/uL High <0.87 [facility] Comment on above: Order Comment: Speci men Type: BLOOD SPECIMENOrdering Facility: [facility] Address: [address] [place] [address] Performed By: #### 5 7021-8 ####[facility]ORATORYCLIA [id number] [place] [address] [place]#### 11567-9 ####[facility] LABCLIA [id number] [place] [address] [place] Monocytes/100 WBC (Bld) 8.0 % Normal [facility] Comment on above: Order Comment: Speci men Type: BLOOD SPECIMENOrdering Facility: [facility] Address: [address] [place] [address] Performed By: #### 5 7021-8 ####[facility] LABORATORYCLIA [id number] [place] [address] [place] [facility] [place]#### 09723-3 ####[facility] LABCLIA [id number] [place] [address] [place] Neutrophils (Bld) [#/Vol] 8.28 10*3/uL High 1.45-7.50 [facility] Comment on above: Order Comment: Speci men Type: BLOOD SPECIMENOrdering Facility: [facility] Address: [address] [place] [address] Performed By: #### 5 7021-8 ####[facility] LABORATORYCLIA [id number] [place] [address] [place]#### 04266-0 ####[facility] LABCLIA [id number] [place] [address] [place] Neutrophils/100 WBC (Bld) 73.4 % Normal [facility] Comment on above: Order Comment: Speci men Type: BLOOD SPECIMENOrdering Facility: [facility] Address: [address] [place] [address] Performed By: #### 5 7021-8 ####[facility] LABORATORYCLIA [id number] [place] [address] [place]#### 42458-7 ####[facility] LABCLIA [id number] [place] [address] [place] Nucleated RBC (Bld) [#/Vol] 10*3/uL Normal <0.01 [facility] Comment on above: Order Comment: Speci men Type: BLOOD SPECIMENOrdering Facility: [facility] Address: [address] [place] [address] Performed By: #### 5 7021-8 ####[facility] LABORATORYCLIA [id number] [place] [address] [place]#### 70359-9 ####[facility] LABCLIA [id number] [place] [address] [place] Nucleated RBC/100 WBC (Bld) [Ratio] 0.0 /100 WBC Normal [facility] Comment on above: Order Comment: Speci men Type: BLOOD SPECIMENOrdering Facility: [facility] Address: [address] [place] [address] Performed By: #### 5 7021-8 ####[facility] [id number] [place] [address] [place]#### 70290-2 ####[facility] LABCLIA [id number] [place] [address] [place] Platelet mean volume (Bld) [Entitic vol] 11.1 fL Normal 9.0-12.7 [facility] Comment on above: Order Comment: Speci men Type: BLOOD SPECIMENOrdering Facility: [facility] Address: [address] [place] [address] Performed By: #### 5 7021-8 ####[facility]ORYCLIA [id number] [place] [address] [place]#### 53063-3 ####[facility] LABCLIA [id number] [place] [address] [place] Platelets (Bld) [#/Vol] 285 10*3/uL Normal 150-400 [facility] Comment on above: Order Comment: Speci men Type: BLOOD SPECIMENOrdering Facility: [facility] Address: [address] [place] [address] Performed By: #### 5 7021-8 ####[facility]ORYCL[facility] [id number] [place] [address] [place]#### 21387-0 ####[facility] LABCLIA [id number] [place] [address] [place] RBC (Bld) [#/Vol] 4.74 10*6/uL Normal 4.20-6.00 [facility] Comment on above: Order Comment: Speci men Type: BLOOD SPECIMENOrdering Facility: [facility] Address: [address] [place] [address] Performed By: #### 5 7021-8 ####[facility] LABORATORYCLIA [id number] [place], [place] [address] [place] [address] [place]#### 40944-6 ####[facility] LABCLIA [id number] [address] [address] [place] WBC (Bld) [#/Vol] 11.29 10*3/uL High 3.70-11.00 [facility] Comment on above: Order Comment: Speci men Type: BLOOD SPECIMENOrdering Facility: [facility] Address: [address] [place] [address] Performed By: #### 5 7021-8 ####[facility] LABORATORYCLIA [id number] [address]#### 31513-1 ####[facility] LABCLIA [id number] [place] [id number] [facility] [place] Comprehensive metabolic 2000 panelon 09-21-2024 Albumin [Mass/Vol] 3.9 g/dL Normal 3.9-4.9 [facility] Comment on above: Order Comment: Speci men Type: BLOOD SPECIMENOrdering Facility: [facility] Address: [address] [place] [address] Performed By: #### 2 4323-8, 26046-1, 35684-9, [id number] ####[facility]ORYCL[facility] [id number] [address] ALP [Catalytic activity/Vol] 72 U/L Normal 38-113 [facility] Comment on above: Order Comment: Speci men Type: BLOOD SPECIMENOrdering Facility: [facility] Address: [address] [place] [address] Performed By: #### 2 4323-8, 46745-7, 69595-8, [id number] ####[facility] LABORATORYCLIA [id number] [place] [address] [place] ALT [Catalytic activity/Vol] 19 U/L Normal 10-54 [facility] Comment on above: Order Comment: Speci men Type: BLOOD SPECIMENOrdering Facility: [facility] Address: [address] [place] [address] Performed By: #### 2 4323-8, 06107-2, 22252-1, [id number] ####[facility] LABORATORYCLIA [id number] [place] [address] [place] Anion gap [Moles/Vol] 15 mmol/L Normal 8-15 [facility] Comment on above: Order Comment: Speci men Type: BLOOD SPECIMENOrdering Facility: [facility] Address: [address] [place] [address] Performed By: #### 2 4323-8, 71412-0, 78976-0, [id number] ####[facility] LABORATORYCLIA [id number] [address] [place] AST [Catalytic activity/Vol] 27 U/L Normal 14-40 [facility] Comment on above: Order Comment: Speci men Type: BLOOD SPECIMENOrdering Facility: [facility] Address: [address] [place] [address] Performed By: #### 2 4323-8, 08612-5, 73567-5, [id number] ####[facility] LABORATORYCLIA [id number] [place] [address] [place] Bilirubin [Mass/Vol] 0.9 mg/dL Normal 0.2-1.3 [facility] Comment on above: Order Comment: Speci men Type: BLOOD SPECIMENOrdering Facility: [facility] Address: [address] [place] [address] Performed By: #### 2 4323-8, 36905-1, 99825-4, [id number] ####[facility] LABORATORYCLIA [id number] [place] [id number] [place] Calcium [Mass/Vol] 9.3 mg/dL Normal 8.5-10.2 [facility] Comment on above: Order Comment: Speci men Type: BLOOD SPECIMENOrdering Facility: [facility] Address: [address] [place] [address] Performed By: #### 2 4323-8, 66141-2, 66241-5, [id number] ####[facility] LABORATORYCLIA [id number] [place] [address] [place] Chloride [Moles/Vol] 90 mmol/L Low 98-107 [facility] Comment on above: Order Comment: Speci men Type: BLOOD SPECIMENOrdering Facility: [facility] Address: [address] [place] [address] Performed By: #### 2 4323-8, 50524-5, 89001-5, [id number] ####[facility] LABORATORYCLIA [id number] [place] [address] [place] CO2 [Moles/Vol] 18 mmol/L Low 22-30 [facility] Comment on above: Order Comment: Speci men Type: BLOOD SPECIMENOrdering Facility: [facility] Address: [address] [place] [address] Performed By: #### 2 4323-8, 52646-2, 67365-0, [id number] ####[facility] LABORATORYCLIA [id number] [place] [address] [place] Creatinine [Mass/Vol] 1.87 mg/dL High 0.73-1.22 [facility] Comment on above: Order Comment: Speci men Type: BLOOD SPECIMENOrdering Facility: [facility] Address: [address] [place] [address] Performed By: #### 2 4323-8, 68617-0, 00589-9, [id number] ####[facility] LABORATORYCLIA [id number] [place] [address] [place] Creatinine and Glomerular filtration rate.predicted panel (S/P/Bld) 44 mL/min/1.73m??? Low >=60 [facility] Comment on above: Order Comment: Speci men Type: BLOOD SPECIMENOrdering Facility: [facility] Address: [address] [place] [id number] Result Comment: Gabby mated Glomerular Filtration Rate (eGFR) is calculated using the 2020 CKD-EPI creatinine equation. This equation utilizes serum creatinine, sex, and age as parameters. The creatinine assay has traceable calibration to isotope dilution-mass spectrometry. Refer to KDIGO guidelines for clinical interpretation. In patients with unstable renal function, e.g. those with acute kidney injury, the eGFR may not accurately reflect actual GFR. Performed By: #### 2 4323-8, 82395-0, 96289-6, [id number] ####[facility]ORATORYCLIA [id number] [place] [address] [place] Glucose [Mass/Vol] 161 mg/dL High 74-99 [facility] Comment on above: Order Comment: Sigrid zepeda Type: BLOOD SPECIMENOrdering Facility: [facility] Address: [address] [place] [address] Result Comment: The [place] Diabetes Association (ADA) provides guidance for cutoff values for fasting glucose and random glucose. The ADA defines fasting as no caloric intake for at least 8 hours. Fasting plasma glucose results between 100 to 125 mg/dL indicate increased risk for diabetes (prediabetes).Fasting plasma glucose results greater than or equal to 126 mg/dL meet the criteria for diagnosis of diabetes. In the absence of unequivocal hyperglycemia, results should be confirmed by repeat testing. In a patient with classic symptoms of hyperglycemia or hyperglycemic crisis, random plasma glucose results greater than or equal to 200 mg/dL meet the criteria for diagnosis of diabetes.Reference: Standards of Medical Care in Diabetes 2016, [place] Diabetes Association. Diabetes Care. 2016.39(Suppl 1). Performed By: #### 2 4323-8, 10965-2, 36472-0, [id number] ####[facility]ORATORYCLIA [id number] [place] [address] [place] Potassium [Moles/Vol] 4.7 mmol/L Normal 3.7-5.1 [facility] Comment on above: Order Comment: Sigrid zepeda Type: BLOOD SPECIMENOrdering Facility: [facility] Address: [address] [place] [id number] Performed By: #### 2 4323-8, 58267-5, 28774-6, [id number] ####[facility] LABORATORYCLIA [id number] [place] [address] [place] Protein [Mass/Vol] 6.6 g/dL Normal 6.3-8.0 [facility] Comment on above: Order Comment: Speci men Type: BLOOD SPECIMENOrdering Facility: [facility] Address: [address] [place] [address] Performed By: #### 2 4323-8, 08222-0, 96580-3, [id number] ####[facility] LABORATORYCLIA [id number] [place] [address] [place] Sodium [Moles/Vol] 123 mmol/L Low 136-144 [facility] Comment on above: Order Comment: Speci men Type: BLOOD SPECIMENOrdering Facility: [facility] Address: [address] [place] [address] Performed By: #### 2 4323-8, 06560-8, 50413-7, [id number] ####[facility]ATORYCLIA [id number] [place] [address] [place] Urea nitrogen [Mass/Vol] 37 mg/dL High 9-24 [facility] Comment on above: Order Comment: Speci men Type: BLOOD SPECIMENOrdering Facility: [facility] Address: [address] [place] [address] Performed By: #### 2 4323-8, 24782-1, 32523-4, [id number] ####[facility]ATORYCLIA [id number] [place] [address] [place] ECG COMPLETEon 09-21-2024 ECG COMPLETE Normal [facility] HIGH SENSITIVITY TROPONIN T (INITIAL)on 09-21-2024 Troponin T.cardiac High sensitivity method [Mass/Vol] 64 ng/L High <12 [facility] Comment on above: Order Comment: Speci men Type: BLOOD SPECIMENOrdering Facility: [facility] Address: [address] [place] [address] Performed By: #### 2 4323-8, 09171-0, 50818-0, [id number] ####[facility] LABORATORYCLIA [id number] [place] [id number] [place] HbA1c (Bld)on 09-21-2024 Average glucose Estimated from glycated hemoglobin (Bld) [Mass/Vol] 120 mg/dL Normal [facility] Comment on above: Order Comment: Sigrid zepeda Type: BLOOD SPECIMENOrdering Facility: [facility] Address: [address] [place] [address] Result Comment: eAG: (Estimated average glucose) is a calculated value from HgbA1c and is insurance representative of the average blood glucose level in the last 2-3 month period. Performed By: #### 5 7021-8 ####[facility]ATORYCLIA [id number] [address] [place]#### 48732-4 ####[facility] LABCLIA [id number] [place] [address] [place] HbA1c (Bld) [Mass fraction] 5.8 % High 4.3-5.6 [facility] Comment on above: Order Comment: Sigrid zepeda Type: BLOOD SPECIMENOrdering Facility: [facility] Address: [address] [place] [address] Result Comment: [place] Diabetes Association guidelines indicate that patients with HgbA1c in the range 5.7-6.4% are at increased risk for development of diabetes, and intervention by lifestyle modification may be beneficial. HgbA1c greater or equal to 6.5% is considered diagnostic of diabetes. Performed By: #### 5 7021-8 ####[facility]ATORYCLIA [id number] [address] [place]#### 49769-5 ####[facility] LABCLIA [id number] [place] [id number] [place] Magnesium SerPl-mCncon 09-21 Magnesium [Mass/Vol] 2.3 mg/dL Normal 1.7-2.3 [facility] Comment on above: Order Comment: Sigrid zepeda Type: BLOOD SPECIMENOrdering Facility: [facility] Address: [address] [place] [address] Performed By: #### 2 4323-8, 02926-9, 02825-6, [id number] ####[facility]ATORYCLIA [id number] [place] [id number] [facility] NT-proBNP [facility] 09-21 Natriuretic peptide.B prohormone N-Terminal [Mass/Vol] 82073 pg/mL High <125 [facility] Comment on above: Order Comment: Speci men Type: BLOOD SPECIMENOrdering Facility: [facility] Address: [address] [place] [address] [place] [address] Performed By: #### 2 4323-8, 69506-1, 76024-5, [id number] ####[facility]ATORYCLIA [id number] [address] XR CHEST 1V FRONTAL PORTon 1 11-22-2023 XR CHEST 1V FRONTAL PORT Normal [facility] ICD CLINIC CHECKon Detection Configuration (Vent) 2 - Zone [facility] FastVT_Detection Interval 300 ms [facility] FastVT_Therapy Configuration 0 ATP(s) + 1 Shock(s) [facility] ICD FastVT DetectionStatus ENABLED [facility] ICD-Device Mfg BSX [facility] [id number] 0 [facility] ICD-SHOCKSDELIVEREDVEN TRICULAR 0 [facility] Lead1 Mfg X [facility] Location Unknown [facility] MDT_PROG_TACHY_ZONE_DE TECTIONS_STATUS ENABLED [facility] Model A[address] [place] MRI S-ICD [facility] Model 3501 EMBLE S-ICD Electrode [facility] Serial Number [id number] [facility] Serial Number [id number] [facility] Therapy Status (Vent) Enabled [facility] VF Zone Detection Interval 250 ms [facility] VF Zone Therapy Configuration 0 ATP(s) + 1 Shock(s) [facility] ICD FastVT DetectionStatus DISABLED [facility] ICD-Device Mfg BSX [facility] [id number] 0 [facility] ICD-SHOCKSDELIVEREDVEN TRICULAR 0 [facility] Lead1 Mfg BSX [facility] Location Unknown [facility] MDT_PROG_TACHY_ZONE_DE TECTIONS_STATUS DISABLED [facility] Model A219 [place] MRI S-ICD [facility] Model 3501 EMBLEM S-ICD Electrode [facility] Serial Number [id number] [facility] Serial Number [id number] [facility] No Panel Informationon 01-03 BLANK _ [facility] Implant Date 08/26/2021 [facility] BLANK _ [facility] Implant Date 08/26/2021 [facility] ICD CLINIC CHECKon Detection Configuration (Vent) 2 - Zone [facility] FastVT_Detection Interval 300 ms [facility] FastVT_Therapy Configuration 0 ATP(s) + 1 Shock(s) [facility] ICD FastVT DetectionStatus ENABLED [facility] ICD-Device Mfg BSX [facility] [id number] 0 [facility] ICD-SHOCKSDELIVEREDVEN TRICULAR 0 [facility] Lead1 Mfg BSX [facility] Location Unknown [facility] MDT_PROG_TACHY_ZONE_DE TECTIONS_STATUS ENABLED [facility] Model A219 [place] MRI S-ICD [facility] Model 3501 EMB[place] S-ICD Electrode [facility] Serial Number [id number] [facility] Serial Number [id number] [facility] Therapy Status (Vent) Enabled [facility] VF Zone Detection Interval 250 ms [facility] VF Zone Therapy Configuration 0 ATP(s) + 1 Shock(s) [facility] No Panel Informationon 12-16 BLANK _ [facility] Implant Date 08/26/2021 [facility] Office Visit (Urgent Care)on 07-28-2022 Follow-up visit Diagnoses/Problems Assessed Laceration of left index finger without foreign body without damage to nail, initial encounter (883.0) (S61.211A) Patient Discussion/Summary Left index finger laceration. Keep tube gauze dressing in place through the weekend. Follow that with the use of topical antibiotics and Band-Aids for another week and a half. Follow-up with your doctor as needed. Provider Impressions Left index finger laceration. Keep tube gauze dressing in place through the weekend. Follow that with the use of topical antibiotics and Band-Aids for another week and a half. Follow-up with your doctor as needed. Chief Complaint Chief Complaints Finger Problem History of Present Illness Patient is a 46-year-old male with a chief complaint of laceration to the left index finger. Patient reports the laceration occurred at 1400 yesterday. Patient states his tetanus was updated last in January 2020. Patient denies any fevers or chills. Patient denies any numbness, weakness or tingling. Patient denies any coughs, wheezing, chest pain or shortness of breath. Patient states he has done well with bandaging his finger. Patient denies any moyx-jah-rwedflx medications. Review of Systems Constitutional: as noted in HPI. Cardiovascular: as noted in HPI. Respiratory: as noted in HPI. Integumentary: as noted in HPI. Neurological: as noted in HPI. Active Problems Problems Anemia (285.9) (D64.9) Aortic valve disorder (424.1) (I35.9) Bicuspid aortic valve (746.4) (Q23.1) Blood glucose elevated (790.29) (R73.9) Low testosterone (790.99) (R79.89) Palpitations (785.1) (R00.2) Situational insomnia (307.41) (F51.09) Past Medical History Problems History of Laceration of hand (882.0) (S61.419A) Resolved Date: 23 Aug 2015 Surgical History Problems History of Aortic Valve Repair History of Cholecystectomy History of Surgery Vas Deferens Vasectomy Family History Mother Family history of diabetes mellitus (V18.0) (Z83.3) Father Family history of CAD (coronary artery disease), [place] coronary artery Grandparent Family history of CAD (coronary artery disease), [place] coronary artery Social History Problems Alcohol use (V49.89) (Z78.9) Chews tobacco (305.1) (Z72.0) Daily alcohol use Never smoker Non-smoker (V49.89) (Z78.9) Allergies NoKnown No Known Allergies Recorded By: Aracelis Tamayo; 08/04/2014 5:33:51 PM Current Meds Medication NameInstruction AndroGel Pump 20.25 MG/ACT (1.62%) Transdermal Gel (Testosterone) Aspirin 325 MG Oral TabletTAKE 1 TABLET DAILY. Metoprolol Tartrate 50 MG Oral TabletTAKE 1 TABLET EVERY 12 HOURS DAILY. Zolpidem Tartrate 10 MG Oral TabletTAKE ONE TABLET BY MOUTH NIGHTLY AT BEDTIME NEEDED Vitals Vital Signs Recorded: 28Jul2022 12:09PM Osfcojxezqp21.2 F Heart Rate75 Dlijteqwbke90 Prbtbkit650 Otflxcrgc38 Height5 ft 10 in Xcwfjx330 lb BMI Bmnzuedcfe56.74 kg/m2 BSA Calculated2.37 Tobacco Useb) No PHQ-2 #1. Over the last 2 weeks have you felt down, depressed or hopeless? (If yes, answer PHQ-9 below)No PHQ-2 #2. Over the last 2 weeks have you felt little interest or pleasure in doing things? (If yes, answer PHQ-9 below)No Falls Screening (Age 18+)a) No falls within the last year O2 Twoulzocls93 Pain Scale97 Physical Exam Vital signs were reviewed. GENERAL:Patient appears well nourished and is comfortable. HEART:RRR. Has S1S2, no S3S4, rubs, clicks or murmurs. LUNGS:CTAB. Effort is normal. SKIN: 0.5 cm x 1.0 cm partial-thickness avulsion to the left index finger distal phalanx extensor surface. Wound was cleaned with Betadine. Wound was dressed with bacitracin. Signatures Electronically signed by : Cyrus Recio DO; Jul 28 2022 12:35PM EST (Author) Normal [employer] Tobacco Screening.on Adult depression screening assessment No [facility] Work Phone: Fall risk assessment a) No falls within the last year [facility] Work Phone: Tobacco use status CPHS b) No [facility] Work Phone: MRI CARD MORPH FUNC WO IVCON on 01-14-2021 MRI CARD MORPH FUNC WO IVCON * * *Final Report* * * DATE OF EXAM: Jan 14 2021 4:57PM [facility] 0702 - MRI CARD MORPH FUNC WO IVCON / PROCEDURE REASON: multiple diagnoses * * * * Physician Interpretation * * * * EXAM TITLE:MRI CARD MORPH FUNC WO IVCON DATE: 01/14/2021 4:57 PM COMPARISON: None. CLINICAL INDICATION/HISTORY: Nonischemic Dilated cardiomyopathy, bicuspid aortic valve, status post aortic valve repair. IMPRESSION: 1. The left ventricle is severely dilated and size, with severe systolic dysfunction. 2. The calculated left ventricular ejection fraction is 29%. There are no regional wall motion abnormalities. 3. T1 mapping of the myocardium indicated a global pilot point T1 value of 922 ms (normal values for this scanner: 945 - 965 ms, [facility]). The T2 value of the pilot point myocardium is calculated at 45+/-2 ms (normal values for this scanner: 40 to 45 milliseconds). The study was ordered as a noncontrast study, and late gadolinium enhancement sequences are not available. The pilot point T1 value of the myocardium argues against a diagnosis of cardiac amyloidosis. Based on available T1 and T2 criteria, there is no definite suggestion of myocarditis (modified [place] criteria). The sensitivity for diagnosis of myocarditis is decreased in the absence of late gadolinium enhancement findings. Also cardiac sarcoidosis cannot be definitely excluded without IV contrast. The lack of regional wall motion abnormalities, mediastinal lymphadenopathy makes sarcoidosis less likely. The myocardial T2* value of 46 +/- 12 msec excludes hemochromatosis as well. Consider chemical/toxin needed cardiomyopathies as a primary differential. 4. The right ventricle is normal in size, with normal systolic function.,The tricuspid annular excursion is measured at 1 cm, and this may be decreased due to prior open heart surgery. The calculated right ventricular ejection fraction is 50%, and this is normal. 5. Status post aortic valve repair for a bicuspid aortic valve. The leaflets are mild to moderately thickened with some calcification. Trivial to mild aortic insufficiency is seen. Phase velocity mapping sequences were not obtained on the study. There is severe left atrial, mild to moderate right atrial enlargement. The left atrial volume index is calculated at 57 mL/sq m. 6. The pericardial thickness is 2 mm. A small pericardial effusion is present without changes of tamponade. 7. The great vessels including the main pulmonary artery, superior and inferior vena cavae and pulmonary veins are within normal limits. The ascending aorta is dilated at the mid tubular level, measuring 4.5 cm at the level of the main pulmonary artery. The cardiac situs is solitus. The venoatrial, atrioventricular, ventricular arterial connections appear to be concordant. Very mild mediastinal lymphadenopathy is seen. There is evidence of prior median sternotomy. MEASUREMENTS: A. GREAT VESSELS: I. Aortic root 3.8 cm at the sinuses of Valsalva, 3.1 cm at the sinotubular junction II. Ascending Aorta 4.5 cm at the level of the main pulmonary artery. III. Descending Aorta: 2.7 cm IV. Main Pulmonary Artery 3.3 cm V. RIGHT Pulmonary Artery 2.3 cm . Left Pulmonary Artery 1.9 cm B. LEFT VENTRICLE: I. End Diastolic dimension 7.4 cm II. End systolic dimension 6.9 cm III. LVEF 29 % IV. Anteroseptal wall 1.2 cm V. Inferolateral wall 0.6 cm C. RIGHT VENTRICLE: I. Major Dimension 10.7 cm II.Minor Dimension 4.1 cm VOLUMES: I. Left Ventricular End systolic Volume index (LVESVI) 111 ml/m2 (10-43) II. Left Ventricular End diastolic Volume index (LVEDVI) 157 ml/m2 (51-110) III. Left Ventricular Stroke Volume index (LVSVI) 46 ml/m2 (20-62) IV. Right Ventricular End Systolic volume index ( RVESVI) 33 ml/m2 (37-127) V. Right Ventricular End Diastolic volume index ( RVEDVI) 67 ml/m2 (45-110) . Right Ventricular Stroke volume index ( RVSVI) 34 ml/m2 (33-77) VII.Cardiac Index 3.5 L/min/m2 (2.5-3.0) [employer] Planner: ARCENIO Transcribe Date/Time: Jan 15 2021 2:18P Dictated by : DAMIAN MCKEON MD This examination was interpreted and the report reviewed and electronically signed by: DAMIAN MCKEON MD on Jan 16 2021 10:56PM EST [id number] Normal [facility] Vital Signs Date Time Vital Sign Value Performing Clinician Facility 06-05-2025 08:00-0400 Body mass index (BMI) [Ratio] 32.1 kg/m2 [employer] Work Phone: [facility] 06-05-2025 08:00-0400 Body weight 101.47 kg [employer] Work Phone: [facility] 06-05-2025 08:00-0400 Diastolic blood pressure 0 mm[Hg] [employer] Work Phone: [facility] 06-05-2025 08:00-0400 Heart rate 76 /min [employer] Phone: [facility] 06-05-2025 08:00-0400 Systolic blood pressure 72 mm[Hg] [facility] Work Phone: [facility] 05-12-2025 11:05-0400 Body height 177.8 cm [facility] Work Phone: [facility] 05-12-2025 11:05-0400 Body mass index (BMI) [Ratio] 32.77 kg/m2 [facility] Work Phone: [facility] 05-12-2025 11:05-0400 Body weight 103.6 kg [facility] Work Phone: [facility] 05-12-2025 11:05-0400 Diastolic blood pressure 0 mm[Hg] [facility] Work Phone: [facility] 05-12-2025 11:05-0400 Heart rate 76 /min [facility] Work Phone: [facility] 05-12-2025 11:05-0400 SaO2% (BldA) [Mass fraction] 99 % [employer] Work Phone: [facility] Comment on above: RA 05-12-2025 11:05-0400 Systolic blood pressure 82 mm[Hg] [facility] Work Phone: [facility] 12-17-2023 12:03-0400 Diastolic blood pressure 62 mm[Hg] Mri (I-Stat/1.5t) Work Phone: [facility] 12-17-2023 12:03-0400 Heart rate 72 /min Mri (I-Stat/1.5t) Work Phone: [facility] 12-17-2023 12:03-0400 Respiratory rate 16 /min Mri (I-Stat/1.5t) Work Phone: [facility] 12-17-2023 12:03-0400 SaO2% (BldA) [Mass fraction] 97 % Mri (I-Stat/1.5t) Work Phone: [facility] 12-17-2023 12:03-0400 Systolic blood pressure 102 mm[Hg] Mri (I-Stat/1.5t) Work Phone: [facility] 07-28-2022 12:09-0400 Body height 177.8 cm No PCP None [facility] Work Phone: 07-28-2022 12:09-0400 Body mass index (BMI) [Ratio] 38.74 kg/m2 No PCP None [facility] Work Phone: 07-28-2022 12:09-0400 Body surface area Derived from formula 2.37 m2 No PCP None [facility] Work Phone: 07-28-2022 12:09-0400 Body temperature 98.2 [degF] No PCP None [facility] Work Phone: 07-28-2022 12:09-0400 Body weight 122.47 kg No PCP None [facility] Work Phone: 07-28-2022 12:09-0400 Diastolic blood pressure 89 mm[Hg] No PCP None [facility] Work Phone: 07-28-2022 12:09-0400 Heart rate 75 /min No PCP None [facility] Work Phone: 07-28-2022 12:09-0400 Respiratory rate 14 /min No PCP None [facility] Work Phone: 07-28-2022 12:09-0400 SaO2% (BldA) [Mass fraction] 97 % No PCP None [facility] Work Phone: 07-28-2022 12:09-0400 Systolic blood pressure 126 mm[Hg] No PCP None [facility] Work Phone: 07-28-2022 12:09-0400 97 1 No PCP None [facility] Work Phone: Comment on above: [employer] Encounters Encounter Date Encounter Type Care Provider Facility Start: 06-16-2025 ambulatory SADE ROSALES Facility: [facility] Start: 06-12-2025 End: 06-12-2025 ambulatory CANDIDO MULLINS Facility:[facility] Start: 06-10-2025 End: 06-10-2025 ambulatory [facility] Facility:[facility] Start: 06-10-2025 End: 06-10-2025 Patient encounter procedure Card Rehab Phase 2 [place] Work Phone: [facility] Start: 06-08-2025 End: 06-08-2025 ambulatory LAURENRANSONJonathan GONZALEZ Facility:[facility] Start: 06-08-2025 End: 06-08-2025 Patient encounter procedure Card Rehab Phase 2 [place] Work Phone: [facility] Comment on above: Chronic systolic hea rt failure (HCC) (Primary Dx) Start: 06-05-2025 End: 06-05-2025 ambulatory LAURENRANSONJonathan MULLINS Facility:[facility] Start: 06-05-2025 End: 06-05-2025 Patient encounter procedure Card Rehab Phase 2 [place] Work Phone: [facility] Comment on above: Congestive heart rema lure, unspecified HF chronicity, unspecified heart failure type (HCC) (Primary Dx) Start: 06-03-2025 End: 06-03-2025 Patient encounter procedure Card Rehab Phase 2 [place] Work Phone: [facility] Comment on above: Congestive heart rema lure, unspecified HF chronicity, unspecified heart failure type (HCC) (Primary Dx) Start: 06-03-2025 End: 06-03-2025 ambulatory CANDIDO MULLINS Facility:[facility] Start: 06-01-2025 End: 06-01-2025 Patient encounter procedure Card Rehab Phase 2 [place] Work Phone: [facility] Comment on above: Congestive heart rema lure, unspecified HF chronicity, unspecified heart failure type (HCC) (Primary Dx) Start: 06-01-2025 End: 06-01-2025 ambulatory MOHRANSOND KARNIB Facility:[facility] Start: 05-29-2025 End: 05-29-2025 ambulatory [facility] Facility:[facility] Start: 05-29-2025 End: 05-29-2025 Patient encounter procedure Card Rehab Phase 2 [place] Work Phone: [facility] Comment on above: Chronic heart failur e, unspecified heart failure type (HCC) (Primary Dx) Start: 05-27-2025 End: 05-27-2025 [facility] Start: 05-27-2025 End: 05-27-2025 Patient encounter procedure Card Rehab Phase 2 [place] Work Phone: [facility] Comment on above: Congestive heart rema lure, unspecified HF chronicity, unspecified heart failure type (HCC) (Primary Dx) Start: 05-22-2025 End: 05-22-2025 Patient encounter procedure Card Rehab Phase 2 [place] Work Phone: [facility] Comment on above: Chronic heart failur e, unspecified heart failure type (HCC) (Primary Dx) Start: 05-22-2025 End: 05-22-2025 ambulatory [facility] Facility:[facility] Start: 05-12-2025 End: 05-12-2025 ambulatory [facility] Facility:[facility] Start: 05-12-2025 End: 05-12-2025 Patient encounter procedure Card Exercise [place] Work Phone: [facility] Comment on above: Congestive heart rema lure, unspecified HF chronicity, unspecified heart failure type (HCC) (Primary Dx) Start: 04-14-2025 End: 04-14-2025 Telephone encounter Nereyda Weller Bulk Sugar Handler [facility] Comment on above: Appointment (Cardiac Rehab Eval-[facility]/) Start: 03-17-2025 End: 03-17-2025 Unlisted evaluation and management service Keya Ornelas APRN.CNP Work Phone: Urology Comment on above: NO SHOW (Primary Dx) Start: 03-17-2025 End: 03-20-2025 ambulatory Keya Armuchee MEDICINE TECH.FLAT SORTER PROCESSOR Work Phone: Urology Start: 03-11-2025 End: 03-11-2025 Transcribe Orders Jose Ramirez MD Work Phone: Referring Physician Comment on above: Other cardiomyopathy (HCC) (Primary Dx) Start: 01-29-2025 End: 01-29-2025 ambulatory Janet Tobin MEDICINE TECH.FLAT SORTER PROCESSOR Work Phone: Cardiothoracic Start: 12-24-2024 End: 12-24-2024 Evaluation and management of inpatient Henry Busch MD Work Phone: Cardiology Comment on above: heart failure Start: 12-23-2024 End: 12-23-2024 Follow-up encounter Edwardo Raza MD Work Phone: Cardiology Comment on above: Follow Up Start: 12-23-2024 End: 12-23-2024 Patient encounter procedure Edwardo Raza MD Work Phone: Cardiology Start: 12-11-2024 End: 12-11-2024 ambulatory Slava Polanco MD Work Phone: [facility] Comment on above: CoPat Start Start: 11-26-2024 End: 11-26-2024 Evaluation and management of inpatient Henry Busch MD Work Phone: Cardiology Comment on above: heart failure Start: 11-26-2024 End: 11-26-2024 ambulatory Wilda Vines MD Work Phone: Research Start: 11-25-2024 End: 11-25-2024 ambulatory Dianna Long Research Coordinator Research Start: 11-17-2024 End: 11-17-2024 ambulatory Janet Tobin MEDICINE TECH.FLAT SORTER PROCESSOR Work Phone: Cardiothoracic Comment on above: Heart Transplant Denita ection Committee (AFHTC/ LVAD outcome) Start: 11-06-2024 End: 11-06-2024 Evaluation and management of inpatient Henry Busch MD Work Phone: Cardiology Comment on above: heart failure Start: 11-05-2024 End: 11-05-2024 Evaluation and management of inpatient Henry Busch MD Work Phone: Cardiology Comment on above: heart failure Start: 11-03-2024 End: 11-03-2024 Evaluation and management of inpatient Henry Busch MD Work Phone: Transplant Center Start: 10-31-2024 End: 10-31-2024 Chart abstracting Michele Sam [facility] Work Phone: [facility] Start: 10-31-2024 End: 10-31-2024 Evaluation and management of inpatient Henyr Busch MD Work Phone: Cardiology Comment on above: heart failure Start: 10-22-2024 End: 10-22-2024 Evaluation and management of inpatient Henry Busch MD Work Phone: Dentistry Comment on above: Encounter for pre-tr ansplant evaluation for heart transplant (Primary Dx); Preoperative clearance; Longstanding persistent atrial fibrillation (HCC); 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) Start: 10-22-2024 End: 10-22-2024 Patient encounter status Henry Busch MD Work Phone: [facility] Work Phone: Start: 10-22-2024 End: 10-22-2024 Preoperative state Henry Busch MD Work Phone: [facility] Start: 10-21-2024 End: 10-21-2024 ambulatory Ermelinda Mace RN Cardiology Start: 10-21-2024 End: 11-17-2024 Chart abstracting Ermelinda Mace RN Cardiology Comment on above: Abstract (Pre work u p tool) Start: 10-21-2024 End: 10-21-2024 Patient encounter procedure Ermelinda Mace RN Cardiology Comment on above: Patient Update (Pre heart transplant eval/consent) Start: 10-21-2024 End: 11-17-2024 Patient encounter status Ermelinda Mace RN [facility] Start: 10-21-2024 End: 10-21-2024 Telephone encounter Heart Pre Tx [facility] Start: 10-01-2024 End: 10-05-2024 Evaluation and management of inpatient LOUANN MOREIRA Facility:[facility] Start: 10-01-2024 End: 10-01-2024 Telephone encounter Rome Ricks RN Cardiology Comment on above: Pearl Maker - O ther (CHF) Start: 09-29-2024 End: 09-29-2024 Telephone encounter Rome Ricks RN Cardiology Comment on above: Pearl Maker - O ther (CHF) Start: 09-21-2024 End: 09-26-2024 Evaluation and management of inpatient ZACHARY VASQUEZ Facility:[facility] Start: 12-17-2023 ambulatory Mariaelena Triana RN MRI Q Comment on above: Patient Education Start: 12-17-2023 Follow-up encounter Mo ag MD Work Phone: [facility] Start: 12-17-2023 Patient encounter procedure Mo Christina MD Work Phone: [facility] Department Start: 12-17-2023 End: 12-17-2023 Subsequent hospital visit by physician Mri Main J 2 (I-Stat/1.5t) Work Phone: MRI J Start: 07-28-2022 ambulatory Cyrus Recio Facility:[id number] Start: 07-28-2022 Office outpatient ne w 45 minutes No PCP None [facility] Work Phone: Start: 11-01-2015 End: 11-11-2015 Patient encounter status Rome Ricks RN [facility] Work Phone: Procedures Date Procedure Procedure Detail Performing Clinician Start: 12-24-2024 Lynn-px dev eval & p anika sing/dual/multi lead dfb Hal Vera MD Work Phone: Start: 11-26-2024 Prgrmg dev eval impl antable subq lead dfb system Hal Vera MD Work Phone: Start: 11-06-2024 XR SURGICAL COUNT Jose Hancock MD Work Phone: Start: 11-06-2024 Prgrmg dev eval impl antable subq lead dfb system Elyssa Herrmann MD Work Phone: Start: 11-05-2024 Prgrmg dev eval impl antable subq lead dfb system Sade Parada MD Work Phone: Start: 10-31-2024 Interrogation eval f 2f implant subq lead defib Sacha Mock MD Work Phone: Start: 10-22-2024 Lipid 1996 panel - S dee or Plasma Lazaro Tate DMD Work Phone: Start: 09-23-2024 Echocardiography THEODORE MULLINS Start: 12-17-2023 Cardiac mri w/wo con trast & further seq [facility] Provider Start: 12-17-2023 ICD CLINIC CHECK Mo Christina MD Work Phone: Start: 12-17-2023 ICD CLINIC CHECK Mo Christina MD Work Phone: Start: 12-17-2023 ICD CLINIC CHECK Mo Christina MD Work Phone: Start: 11-23-2021 Lipid 1996 panel - S dee or Plasma Mo Christina MD Work Phone: Cholecystectomy Kev Castillo History of Aortic Va lve Repair Kev Walker MD History of Surgery V as Deferens Vasectomy Kev Walker MD Plan of Treatment Date Care Activity Detail Author Start: 05-02-2033 Urine microalbumin profile DTaP,Tdap,Td Vaccine (4 - Td or Tdap) [facility] Start: 10-22-2029 Lipid panel Lipid Screening [facility] Start: 01-21-2028 Diabetes Screening Diabetes Screenin [facility] Start: 12-30-2027 Diabetes Screening Diabetes Screenin [facility] Start: 12-24-2027 Diabetes Screening Diabetes Screenin [facility] Start: 12-12-2027 Diabetes Screening Diabetes Screenin g [facility] Start: 11-28-2027 Diabetes Screening Diabetes Screenin g [facility] Start: 11-27-2027 Diabetes Screening Diabetes Screenin g [facility] Start: 11-26-2027 Diabetes Screening Diabetes Screenin g [facility] Start: 11-17-2027 Diabetes Screening Diabetes Screenin g [facility] Start: 11-08-2027 Diabetes Screening Diabetes Screenin g [facility] Start: 11-07-2027 Diabetes Screening Diabetes Screenin g [facility] Start: 11-04-2027 Diabetes Screening Diabetes Screenin g [facility] Start: 10-31-2027 Diabetes Screening Diabetes Screenin g [facility] Start: 10-23-2027 Diabetes Screening Diabetes Screenin g [facility] Start: 10-21-2027 Diabetes Screening Diabetes Screenin g [facility] Start: 09-26-2027 Diabetes Screening Diabetes Screenin g [facility] Start: 11-23-2026 Lipid panel Lipid Screening [facility] Start: 01-20-2026 Creatinine measurement Serum Creatin ine [facility] Start: 12-29-2025 Complete blood count Hemoglobin/Ace [facility] Start: 12-29-2025 Creatinine measurement Serum Creatin ine [facility] Start: 12-23-2025 Complete blood count Hemoglobin/Ace [facility] Start: 12-23-2025 Creatinine measurement Serum Creatin ine [facility] Start: 12-11-2025 [facility] Start: 12-11-2025 Creatinine measurement Serum Creatin ine [facility] Start: 11-27-2025 Creatinine measurement Serum Creatin ine [facility] Start: 11-26-2025 Complete blood count Hemoglobin/Ace [facility] Start: 11-26-2025 Creatinine measurement Serum Creatin ine [facility] Start: 11-25-2025 Creatinine measurement Serum Creatin ine [facility] Start: 11-17-2025 Creatinine measurement Serum Creatin ine [facility] Start: 11-08-2025 Creatinine measurement Serum Creatin ine [facility] Start: 11-07-2025 Creatinine measurement Serum Creatin ine [facility] Start: 11-04-2025 Complete blood count Hemoglobin/Ace [facility] Start: 11-04-2025 Creatinine measurement Serum Creatin ine [facility] Start: 10-31-2025 Complete blood count Hemoglobin/Ace [facility] Start: 10-31-2025 Creatinine measurement Serum Creatin ine [facility] Start: 10-23-2025 Complete blood count Hemoglobin/Ace [facility] Start: 10-23-2025 Creatinine measurement Serum Creatin ine [facility] Start: 10-21-2025 Complete blood count Hemoglobin/Ace [facility] Start: 10-21-2025 Creatinine measurement Serum Creatin ine [facility] Start: 08-12-2025 End: 08-12-2025 Patient encounter procedure 08/12/2025 8:00 AM EST [facility] [address] [address] DX CHF [facility] Comment on above: DX CHF Start: 08-10-2025 End: 08-10-2025 Patient encounter procedure 08/10/2025 8:00 AM EST [facility] [address] [address] DX CHF [facility] Comment on above: DX CHF Start: 08-07-2025 End: 08-07-2025 Patient encounter procedure 08/07/2025 8:00 AM EST [facility] [address] [address] DX CHF [facility] Comment on above: DX CHF Start: 08-05-2025 End: 08-05-2025 Patient encounter procedure 08/05/2025 8:00 AM EST [facility] [address] [address] DX CHF [facility] Comment on above: DX CHF Start: 08-03-2025 End: 08-03-2025 Patient encounter procedure 08/03/2025 8:00 AM EST Office Visit [facility] [address] [address] DX CHF [facility] Comment on above: DX CHF Start: 07-31-2025 End: 07-31-2025 Patient encounter procedure 07/31/2025 8:00 AM EST [facility] [address] [address] DX CHF [facility] Comment on above: DX CHF Start: 07-29-2025 End: 07-29-2025 Patient encounter procedure 07/29/2025 8:00 AM EST [facility] [address] [address] DX CHF [facility] Comment on above: DX CHF Start: 07-27-2025 End: 07-27-2025 Patient encounter procedure 07/27/2025 8:00 AM EST Office Visit [facility] [address] [address] DX CHF [facility] Comment on above: DX CHF Start: 07-24-2025 End: 07-24-2025 Patient encounter procedure 07/24/2025 8:00 AM EDT [facility] [address] [address] DX CHF [facility] Comment on above: DX CHF Start: 07-22-2025 End: 07-22-2025 Patient encounter procedure 07/22/2025 8:00 AM EDT [facility] [address] [address] DX CHF [facility] Comment on above: DX CHF Start: 07-20-2025 End: 07-20-2025 Patient encounter procedure 07/20/2025 8:00 AM EDT [facility] [address] [address] DX CHF [facility] Comment on above: DX CHF Start: 07-17-2025 End: 07-17-2025 Patient encounter procedure 07/17/2025 8:00 AM EDT [facility] [address] [address] DX CHF [facility] Comment on above: DX CHF Start: 07-15-2025 End: 07-15-2025 Patient encounter procedure 07/15/2025 8:00 AM EDT Office Visit [facility] [address] [address] DX CHF [facility] Comment on above: DX CHF Start: 07-13-2025 End: 07-13-2025 Patient encounter procedure 07/13/2025 8:00 AM EDT [facility] [address] [address] DX CHF [facility] Comment on above: DX CHF Start: 07-10-2025 End: 07-10-2025 Patient encounter procedure 07/10/2025 8:00 AM EDT Office Visit [facility] [address] [address] DX CHF [facility] Comment on above: DX CHF Start: 07-08-2025 End: 07-08-2025 Patient encounter procedure 07/08/2025 8:00 AM EDT Office Visit [facility] [address] [address] DX CHF [facility] Comment on above: DX CHF Start: 07-06-2025 End: 07-06-2025 Patient encounter procedure 07/06/2025 8:00 AM EDT [facility] [address] [address] DX CHF [facility] Comment on above: DX CHF Start: 07-03-2025 End: 07-03-2025 Patient encounter procedure 07/03/2025 8:00 AM EDT Office Visit [facility] [address] [address] DX CHF [facility] Comment on above: DX CHF Start: 07-01-2025 End: 07-01-2025 Patient encounter procedure 07/01/2025 8:00 AM EDT [facility] [address] [address] DX CHF [facility] Comment on above: DX CHF Start: 06-29-2025 End: 06-29-2025 Patient encounter procedure 06/29/2025 8:00 AM EDT [facility] [address] [address] DX CHF [facility] Comment on above: DX CHF Start: 06-26-2025 End: 06-26-2025 Patient encounter procedure 06/26/2025 8:00 AM EDT Office Visit [facility] [address] [address] DX CHF [facility] Comment on above: DX CHF Start: 06-24-2025 End: 06-24-2025 Patient encounter procedure 06/24/2025 8:00 AM EDT Office Visit [facility] [address] [address] DX CHF [facility] Comment on above: DX CHF Start: 06-22-2025 End: 06-22-2025 Patient encounter procedure 06/22/2025 8:00 AM EDT Office Visit [facility] [address] [address] DX CHF [facility] Comment on above: DX CHF Start: 06-19-2025 End: 06-19-2025 Patient encounter procedure 06/19/2025 8:00 AM EDT Office Visit [facility] [address] [address] DX CHF [facility] Comment on above: DX CHF Start: 06-17-2025 End: 06-17-2025 Patient encounter procedure 06/17/2025 8:00 AM EDT Office Visit [facility] [address] [address] DX CHF [facility] Comment on above: DX CHF Start: 06-15-2025 End: 06-15-2025 Patient encounter procedure 06/15/2025 8:00 AM EDT Office Visit [facility] [address] [address] DX CHF [facility] Comment on above: DX CHF Start: 06-12-2025 End: 06-12-2025 Patient encounter procedure 06/12/2025 8:00 AM EDT Office Visit [facility] [address] [address] DX CHF [facility] Comment on above: DX CHF Start: 06-10-2025 End: 06-10-2025 Patient encounter procedure 06/10/2025 8:00 AM EDT Office Visit [facility] [address] [address] DX CHF [facility] Comment on above: DX CHF Start: 06-08-2025 End: 06-08-2025 Patient encounter procedure 06/08/2025 8:00 AM EDT Office Visit [facility] [address] [address] DX CHF [facility] Comment on above: DX CHF Start: 06-05-2025 End: 06-05-2025 Patient encounter procedure 06/05/2025 8:00 AM EDT [facility] [address] [address] DX CHF [facility] Comment on above: DX CHF Start: 06-03-2025 End: 06-03-2025 Patient encounter procedure 06/03/2025 8:00 AM EDT [facility] [address] [address] DX CHF [facility] Comment on above: DX CHF Start: 06-01-2025 End: 06-01-2025 Patient encounter procedure 06/01/2025 8:00 AM EDT [facility] [address] [address] DX [facility] Comment on above: DX [facility] Start: 05-29-2025 End: 05-29-2025 Patient encounter procedure 05/29/2025 8:00 AM EDT Office Visit [facility] [address] [address] DX [facility] Comment on above: DX [facility] Start: 05-27-2025 End: 05-27-2025 Patient encounter procedure 05/27/2025 8:00 AM EDT Office Visit [facility] [address] [address] [facility] Comment on above: DX [facility] Start: 05-25-[address] [facility] Start: 05-22-2025 End: 05-22-2025 Patient encounter procedure 05/22/2025 8:00 AM EDT Office Visit [facility] [address] [address] [facility] Comment on above: [facility] Start: 04-30-2025 Hepatitis A Vaccine (2 of 2 - Risk 2-dose series) Hepatitis A Vaccine (2 of 2 - Risk 2-dose series) [facility] Start: 03-17-2025 End: 03-17-2025 Patient encounter procedure 03/17/2025 2:30 PM EDT Office Visit Urology [address] [id number] Keya Ornelas APRN.FLAT SORTER PROCESSOR [address] [place] [address] follow up for retention Urology Comment on above: follow up for retent ion Start: 02-11-2025 End: 02-11-2025 Patient encounter procedure 02/11/2025 1:30 PM EDT Office Visit Plastic Surgery [address] [address] Quincy Jones MD [address] [place] [address] post op Plastic Surgery Comment on above: post op Start: 01-22-2025 End: 01-22-2025 ambulatory 01/22/2025 9:00 AM EDT [facility]ious Disease [address] [place] [address] Slava Polanco MD [address] [place] [address] Prosthetic valve endocarditis [facility] f/u Infectious Disease Comment on above: Prosthetic valve end ocarditis [facility]/u Start: 12-27-2024 Shingrix Vaccine (2 of 2) Shingrix Vaccine (2 of 2) [facility] Start: 12-23-2024 End: 12-23-2024 Right heart cath o2 saturation & cardiac output RIGHT HEART CATHETERIZATION INCLUDING MEASUREMENT OF OXYGEN SATURATION AND CARDIAC OUTPUT Left ventricular assist device present (HCC) 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 Start: 11-28-2024 Hepatitis B Vaccine (2 of 2 - CpG 2-dose series) Hepatitis B Vaccine (2 of 2 - CpG 2-dose series) [facility] Start: 11-28-2024 Hepatitis B Vaccine (2 of 3 - Risk Dialysis 4-dose series) Hepatitis B Vaccine (2 of 3 - Risk Dialysis 4-dose series) [facility] Start: 11-26-2024 End: 11-26-2024 Expl po hemrrg thrombosis/infctj ch EXPLORATION FOR POSTOPERATIVE HEMORRHAGE/THROMBOSIS/INF ECTION CHEST Cardiac tamponade 11/26/2024 11:56 AM EST [facility] Start: 11-25-2024 End: 11-25-2024 Insj ventric assist dev xtrcorp single ventricle INSERT VENTRICULAR ASSIST DEVICE, EXTRACORPOREAL SINGLE VENTRICLE Heart failure, unspecified HF chronicity, unspecified heart failure type (HCC) 11/25/2024 6:43 AM EST [facility] Start: 11-25-2024 End: 11-25-2024 Rplcmt prost aortic valve open xcp homogrf/stent AVR W/ CARDIOPULMONARY BYPASS W/ PROSTHETIC OTHER THAN HOMOGRAFT/ STENTLESS TISSUE VALVE Heart failure, unspecified HF chronicity, unspecified heart failure type (HCC) 11/25/2024 6:43 AM EST [facility] Start: 11-25-2024 End: 11-25-2024 Valvuloplasty mitral valve w/cardiac bypass VALVULOPLASTY MITRAL W/ BYPASS Heart failure, unspecified HF chronicity, unspecified heart failure type (HCC) 11/25/2024 6:43 AM EST [facility] Start: 11-23-2024 Diabetes Screening Diabetes Screenin g [facility] Start: 11-04-2024 End: 11-04-2024 Exploratory laparotomy celiotomy w/wo biopsy spx EXPLORATORY LAPAROTOMY Retroperitoneal bleeding 11/04/2024 12:58 PM EST [facility] Start: 05-25-2024 Covid-19 Vaccine ( season) Covid-19 Vaccine () [facility] Start: 05-25-2024 Influenza vaccination Influenza Vacc ine (#1) [facility] Start: 09-24-2023 Behavioral Health Screening Behavioral Health Screening [facility] Start: 09-24-2023 Depression Assessment Depression Ass essment [facility] Start: 05-25-2023 Covid-19 Vaccine ( season) Covid-19 Vaccine ( season) [facility] Start: 11-25-2022 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 PCP Team 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 Disease Visit Annual PCP Team Chronic Disease Visit [facility] Start: 2019 Screening for malign ant neoplasm of colon [facility] Start: 1993 Hepatitis A Vaccine (1 of 2 - Risk 2-dose series) Hepatitis A Vaccine (1 of 2 - Risk 2-dose series) [facility] Start: 1993 Hepatitis B Vaccine (1 of 3 - 19+ 3-dose series) Hepatitis B Vaccine (1 of 3 - 19+ 3-dose series) [facility] Start: 1993 Pneumococcal vaccination Pneumococcal Vaccine (1 of 2 - PCV) [facility] Start: 1993 Pneumococcal Vaccine : 50+ (1 of 2 - PCV) Pneumococcal Vaccine: 50+ (1 of 2 - PCV) [facility] Start: 1993 Shingrix Vaccine (1 of 2) Shingrix Vaccine (1 of 2) [facility] Start: 1992 Anxiety Screening Anxiety Screening [facility] Start: 1992 BP Controlled (<130/80) BP Controlle d (<130/80) [facility] Start: 1992 Depression Screening Depression Scre endarcy [facility] Start: 1979 Covid-19 Vaccine (#1) Covid-19 Vacci ne (#1) [facility] CARDIAC IMPLANTABLE DEVICE CHECK CARDIAC IMPLANTABLE DEVICE CHECK PACEART Routine 11/06/2024 5:02 PM EST [facility] Work Phone: CARDIAC IMPLANTABLE DEVICE CHECK CARDIAC IMPLANTABLE DEVICE CHECK PACEART Routine 11/26/2024 12:59 PM EST [facility] Work Phone: UA DIP, URINE (POC) UA DIP, URIN E (POC) Lab Routine Screening for genitourinary condition 1 Occurrences starting 03/17/2025 [facility] Work Phone: Comment on above: 1 Occurrences starti ng 03/17/2025 Immunizations Immunization Date Immunization Notes Care Provider Chuy aguiar 11-01-2024 zoster vaccine recombinant Henry Busch MD Work Phone: [facility] 10-31-2024 hepatitis A vaccine, adult dosage Henry Busch MD Work Phone: [facility] 10-31-2024 Hepatitis B vaccine (recombinant), CpG adjuvanted Henry Busch MD Work Phone: [facility] 10-31-2024 pneumococcal conjuga te (PCV20) vaccine, 20 valent (PREVNAR 20) Henry Busch MD Work Phone: [facility] 09-11-2023 influenza, injectabl e, quadrivalent, preservative free Lazaro Franklin DMD Work Phone: [facility] 09-11-2023 influenza virus vacc ine, unspecified formulation Rome Ricks RN [facility] 05-02-2023 tetanus toxoid, redu federica diphtheria toxoid, and acellular pertussis vaccine, adsorbed Lazaro Franklin DMD Work Phone: [facility] 02-09-2020 tetanus toxoid, redu federica diphtheria toxoid, and acellular pertussis vaccine, adsorbed Mo Christina MD Work Phone: [facility] 09-24-2013 influenza virus vacc ine, unspecified formulation No PCP None [facility] Work Phone: Comment on above: Series: 09-24-2013 influenza, seasonal, injectable Kev Walker MD [facility] Work Phone: 01-13-2013 tetanus toxoid, redu federica diphtheria toxoid, and acellular pertussis vaccine, adsorbed Kev Walker MD [facility] Comment on above: Series: 07-22-2009 novel Influenza-H1N1 -09, live virus for nasal administration Lazaro Tate ROBIN Work Phone: [facility] Payers Date Payer Category Payer Self-pay 2020 Unknown [id number] 2018 Private Health Insurance [id number] 2018 Unknown [id number] 1974 Unknown [id number] Unknown ANTHMIMI Unknown [id number] Unknown [id number] Social History Date Type Detail Facility Start: 11-01-2015 End: 09-22-2024 Never smoker Never smoker [facility] Start: 11-01-2015 End: 10-01-2024 Tobacco smoking status NHIS Ex-smoker [facility] Work Phone: Start: 11-01-1998 End: 11-01-2005 History of tobacco use Current smoker [facility] Work Phone: Start: 11-01-1998 End: 11-01-2005 History of tobacco use Cigarette Smoker [facility] Work Phone: Start: 11-01-2015 End: 10-01-2024 Tobacco use and exposure Former smokeless tobacco user [facility] Work Phone: End: 11-01-2014 History of tobacco use Chews Tobacco [facility] Work Phone: Start: 11-25-2021 End: 10-01-2024 Alcohol intake Current drinker of alcohol (finding) [facility] Start: 11-25-2021 End: 09-22-2024 Tobacco use panel [facility] Start: 08-25-2012 Adult Depression Screening Assessment 0 [facility] Start: 1975 Sex Assigned At Male C [facility] Start: 10-06-2019 Gender identity Identifies as male gender (finding) [facility] Has the electric, gas, oil, or water [employer] threatened to shut off services in your home in past 12Mo No [facility] (I/We) worried whether (my/our) food would run out before (I/we) got money to buy more. Never true [facility] NEGATED: Highlighted row - - [facility] Work Phone: Medical Equipment Procedure Code Equipment Code Equipment Origin al Text Equipment Identifier Dates Defibrillator- [id number] Start: 08-26-2021 Comment on above: Description: ICD-Dev ice Mfg BSX Model A219 [facility] Serial Number [id number] Implant Date 08/26/2021 Lead1 Mfg BSX Model 3501 EMBLEM S-ICD Electrode Serial Number [id number] Location Unknown Implant Date 08/26/2021 [place] Thk1.65mm P tfe 4x.5in Cardiovascular Sterile - [id number] Start: 11-10-2015 Icd-A219 Emblem Mri [id number] Start: 08-26-2021 [id number] em S-Icd Electrode [id number] Start: 08-26-2021 Graft Gelweave 1 0mm Straight Gelatin Polyester Woven 30cm Cardiovascular - [id number] Start: 11-04-2024 Pump Impella Ventricular Assist 5.5 S2 Smart Assist Us - [id number] Start: 11-04-2024 Dev Lvad Hrtmt 3 Karol Pwr - [id number] Start: 11-25-2024 Kit Cuff Mini Ap ical Lvad With [place]eg[place] - [id number] Start: 11-25-2024 Kit Dev Lvad Hrt mt 3 Cntrl - [id number] Start: 11-25-2024 Comment on above: Description: LVAD HM 3 prepped by VINNY Agosto Valve Aortic Epi c Max 25mm - [id number] Start: 11-25-2024 [place] Thk1.65mm P tfe 4x.5in Cardiovascular Sterile - [id number] Start: 11-25-2024 [place] Thk1.65mm P tfe 4x.5in Cardiovascular Sterile - [id number] Start: 11-25-2024 Ring Contour 3d 32mm Titanium Silicone Polyester Fabric 33mm Annuloplasty - [id number] Start: 11-25-2024 Patch Preclude T hk.1mm Nichols-Thaddeus [id number] Cardiovascular Biocompatible Long - [id number] Start: 11-25-2024 Hemoblast Bellow s And 1 Ea Short 10 Cm Cannula - [id number] Start: 11-25-2024 Lvad-11/25/2024 [id number] Start: 11-25-2024 Goals Date Patient Goal Desired Activity /State Personal health goal Functional Status Date Assessment Result Facility 01-20-2025 Are you deaf, or do you have serious difficulty hearing No 01/20/2025 11:19 AM Alejandra Cantu RN No [facility] 01-20-2025 Are you blind, or do you have serious difficulty seeing, even when wearing glasses No 01/20/2025 11:19 AM Alejandra Cantu RN No [facility] 01-20-2025 Do you have serious difficulty walking or climbing stairs Yes 01/20/2025 11:19 AM Alejandra Cantu RN Yes [facility] 01-20-2025 Do you have difficul ty dressing or bathing Yes 01/20/2025 11:19 AM Alejandra Cantu RN Yes [facility] 01-20-2025 Because of a physica l, mental, or emotional condition, do you have difficulty doing errands alone such as visiting a physician's office or shopping Yes 01/20/2025 11:19 AM Alejandra Cantu RN Yes [facility] 10-05-2024 Are you deaf, or do you have serious difficulty hearing No 10/05/2024 1:39 PM Elo Kimble RN No [facility] 10-05-2024 Are you blind, or do you have serious difficulty seeing, even when wearing glasses No 10/05/2024 1:39 PM Elo Kimble RN No [facility] 10-05-2024 Do you have serious difficulty walking or climbing stairs No 10/05/2024 1:39 PM Elo Kimble RN No [facility] 10-05-2024 Do you have difficul ty dressing or bathing No 10/05/2024 1:39 PM Elo Kimble, IONA No [facility] 10-05-2024 Because of a physica l, mental, or emotional condition, do you have difficulty doing errands alone such as visiting a physician's office or shopping No 10/05/2024 1:39 PM Elo Kimble RN No [facility] NEGATED: Highlighted row Functional performance Functional status health issues are not documented Disease [facility] Work Phone: Mental Status Date Assessment Result Facility 01-20-2025 Because of a physical, mental, or emotional condition, do you have serious difficulty concentrating, remembering, or making decisions Yes 01/20/2025 11:19 AM Alejandra Cantu RN Yes [facility] 10-05-2024 Because of a physical, mental, or emotional condition, do you have serious difficulty concentrating, remembering, or making decisions No 10/05/2024 1:39 PM Elo Kimble RN No [facility] NEGATED: Highlighted row Cognitive function [Interpretation] Cognitive status health issues are not documented Disease [facility] Work Phone: Clinical Notes 07-31-2016 to 06-12-2025 Carlotta Knox RN - 06/09/2025 7:52 AM Elo Mosley, Bulk Sugar Handler - 06/08/2025 8:16 AM Adrianne Guardado RN - 06/05/2025 8:32 AM EDTPetrAlyssa raymond, freight booker - 06/03/2025 8:22 AM EDT Note Date & Type Note Facility 06-12-2025 Note [facility] 06-09-2025 Note [facility] 06-09-2025 History of Presen t illness Narrative Images from the original note were not included. [facility] [place] Oswaldo Gordon Department of Cardiovascular Medicine 30 DAY Assessment for Cardiac Rehab Brenda Espinosa 06/09/2025 CHIEF COMPLAINT: Brenda Espinosa is a 49 year old male seen today. Patient presents with: Cardiac Rehab: 30 day eval HISTORY OF PRESENT ILLNESS: CHF PAST MEDICAL HISTORY Diagnosis Date A-fib (HCC) 09/2024 ON ELIQUIS Aortic regurgitation Bicuspid aortic valve (HCC) Essential hypertension CHAYO (obstructive sleep apnea) PAST SURGICAL HISTORY Procedure Laterality Date CHOLECYSTECTOMY HX PAST SURGICAL HISTORY OF Aortic Valve Repair VASECTOMY UNI/BI SPX W/POSTOP SEMEN EXAMS Social History[1] FAMILY HISTORY Problem Relation Age of Onset Heart Failure Father Alive age 66, ICD other (?MVP) Brother Alive Coronary Artery Disease Paternal Grandfather , [place] Coronary Artery Disease Paternal Aunt , [place] Hypertension Mother Alive Diabetes Mother CURRENT MEDS: Current Outpatient Medications Medication Sig zinc oxide (DESITIN) 13 % cream Apply to affected area two times a day. valsartan (DIOVAN) 40 mg tablet Take 0.5 tablets by mouth two times a day. traZODone (DESYREL) 150 mg tablet Take 0.5 tablets by mouth daily at bedtime. tamsulosin (FLOMAX) 0.4 mg Take 1 capsule by mouth once daily. simethicone, chewable (MYLICON) 80 mg chewable tablet Take 1 tablet by mouth two times a day as needed (gas). senna (SENOKOT) 8.6 mg tab Take 1 tablet by mouth once daily. potassium chloride ER (KLOR-CON) 20 mEq tablet Take 1 tablet by mouth once daily. pantoprazole DR (PROTONIX) 20 mg tablet Take 1 tablet by mouth daily at 6 am. melatonin 3 mg tablet 2 tablets by CORPAK route daily at bedtime. magnesium oxide (MAG-OX) 400 mg (241.3 mg magnesium) tablet Take 2 tablets by mouth two times a day. gabapentin (NEURONTIN) 300 mg capsule Take 1 capsule by mouth every 8 hours for 30 days. hydrOXYzine HCl (ATARAX) 10 mg tablet Take 1 tablet by mouth every 6 hours as needed for anxiety or itching/rash. acetaminophen (TYLENOL) 500 mg tablet Take 2 tablets by mouth every 6 hours as needed for pain. empagliflozin (JARDIANCE) 10 mg tablet Take 1 tablet by mouth once daily. spironolactone (ALDACTONE) 50 mg tablet Take 1 tablet by mouth once daily. atorvastatin (LIPITOR) 40 mg tablet Take 1 tablet by mouth daily at bedtime. warfarin (COUMADIN) 4 mg tablet Take 1 tablet by mouth daily as directed. MULTIVITAMIN-FERROUS FUMARATE-FOLIC ACID 18 MG-400 MCG TABLET Take 1 tablet by mouth once daily. aspirin 81 mg chewable tablet Take 81 mg by mouth once daily. Ascorbic Acid (VITAMIN C) 1,000 mg tablet Take 500 mg by mouth once daily. cholecalciferol (VITAMIN D-3) 50 mcg (2,000 unit) tablet Take 2,000 Units by mouth once daily. cyanocobalamin (VITAMIN B-12) 1,000 mcg tab Take 1,000 mcg by mouth once daily. amiodarone (PACERONE) 200 mg tablet Take 200 mg by mouth once daily. torsemide (DEMADEX) 20 mg tablet Take 20 mg by mouth once daily. No current facility-administered medications for this visit. ALLERGIES No Known Allergies PHYSICAL EXAMINATION: There were no vitals taken for this visit. INDIVIDUAL TREATMENT PLAN Program Location: [place] EXERCISE REASSESSMENT Fall Risk: No Assist Device: No Oxygen: No Current Exercise at Rehab: 3 days a week for 27 minute aerobic session Current MET range: 2.4-2.9 RT Weight : 5lb Home Exercise: Yes Mode: walking Intensity: low Duration: 30min Frequency: 3x week Exercise Limitations/Symptoms: Other (pain in leg and wound) Education Completed: Cleaning of Equipment; Equipment Orientation; Exercise Benefits; Exercise Considerations; Exercise Prescription; Exercise Safety; Hand Hygiene; How to check your pulse; RPE; Safety Guidelines; Signs and Symptoms; Target Heart Rate Range; Warm Up/Cool Down EXERCISE INTERVENTION/PRESCRIPTION Updated Exercise Prescription for Progression Towards Goal: Yes Frequency: 3-5 Per Week Mode: Treadmill; Weights Intensity: Within Set Target HR Range; Within RPE Range MET Range: 2.4-3.3 Target Heart Rate Range (BPM): 102-136 (60-80% age max HR) patient is LVAD RPE Range: 11-14 Aerobic Exercise Duration (minutes): 27 minutes Progression: 5 Minutes Every 2-3 Weeks as Tolerated; 0.5 Mets Every 1-2 Weeks as Tolerated; Within Target Heart Rate Resistance Training: Free Weights Weight: 5lb may increase as tolerated WT Intensity: Weight to Have Local Muscle Fatigue in 10-12 Reps With 1-2 Sets on Non-Consecutive Days Patient Understands Intervention: Yes EXERCISE GOAL Distance Goal on 6 Min Walk Test: 1155 (10% increase from initial walk) Increase in Estimated METS: 3.3 40% increaefrom intial MET level Duration of Aerobic Exercise Minutes per Session: 40 Total Minutes per Week of Aerobic Exercise: >150 Home Exercise Plan: 1-3 times/week following same guidelines as compared to center based cardiac rehab Other: Increase Endurance; Increase Strength NUTRITION REASSESSMENT Current Diet: (low potassium) Alcohol Servings per Week: 0 per week Barriers: Lack of appetite Education Completed: Portion Control; Sodium; Fiber and Caffeine NUTRITION INTERVENTION Treatment Plan: Attend education sessions; Nutrition Classes; Keep saturated fat to 6% or less of total daily calories Education Needed: Cholesterol, Heart Healthy Oils and Fats; Cholestrol Lowering Strategies; Mediterranean Diet; Reading a Food Label Patient Understands Intervention: Needs Reinforcement NUTRITION GOAL Goal: Improve Mediterranean Diet Score; Pending reassessment; Maintain consistant vitamin K intake Progress Towards Goal: patient follow suggested diet for wound healing and coumadin @OTHER CORE COMPONENTS/RISK FACTORS REASSESSMENT Hyperlipidemia: Yes Recent Lab Value Date: 10/22/24 Medication Compliance: Yes Diabetes: No Weight Management: Yes BMI: 32.2 Current Weight lb.: 223.7 lbs. Hypertension: Yes Medication Compliance: Yes Most Recent BP in Cardiac Rehab: 72/0 LVAD doppler Tobacco Use: Ex-smoker Education Completed: Weight Management; Pre Diabetes and Diabetes Management; Hypertension and Management Strategies; Medication Management; Coronary Artery Disease Risk Factors Cholesterol, Total 71 10/22/2024 Triglyceride 200 12/02/2024 HDL Cholesterol 30 10/22/2024 LDL Cholesterol, Calculated 25 10/22/2024 Glucose 105 01/20/2025 Hemoglobin A1C 5.8 10/21/2024 CORE COMPONENTS INTERVENTION Hyperlipidemia: Continue Medication Weight Management: Dietary Modification; Exercise; Combine diet and exercise for a daily caloric deficit of 250-500 calories or more to have a weight loss rate of at least 0.5-1 lb/week; Discuss weight loss medication options with your provider Hypertension: Continue Medication; Dietary Modification; Exercise; Weight Loss; Currently at goal Education Needed: Advanced Directives; Coronary Artery Disease, Coronary Arteries and Interventions; Heart Failure Management; Heart Valve Treatment Options; Ischemia, Heart Attack, Angina and Nitroglycerin; Smoking Cessation and Relapse Prevention Patient Understands Intervention: Yes CORE COMPONENTS IMPROVEMENT GOAL Hyperlipidemia: Knows Current Level; Knows Appropriate Level; LDL < 70 Weight: Lose BMI: <30 Hypertension: BP <130/<80; Monitor BP at Home; Low Sodium Diet; Currently at goal Progress Towards Goal: takes meds as prescribed, follows LVAD protocals PSYCHOSOCIAL REASSESSMENT Stress: Minimal Social Support: Yes (family) Social Determinants of Health: Patient Reports no Concerns Mental Health Provider: No PSYCHOSOCIAL INTERVENTION PCP or Mental Health Provider Referral for Depression: No Education Needed : Anger Management; Stress Management; Anxiety Management; Emotions; Depression Management; 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 The Individual Treatment Plan will continue to be updated within 30 days until the patient has completed their phase II program. Carlotta Knox RN [1] Social History Tobacco Use Smoking status: Former Packs/day: 0.00 Years: 0.5 packs/day for 7.0 years (3.5 ttl pk-yrs) Types: Cigarettes Start date: 11/01/1998 Quit date: 11/01/2005 Years since quittin.6 Smokeless tobacco: Former Types: Chew Quit date: 11/01/2014 Vaping Use Vaping status: Never Used Alcohol use: Yes Alcohol/week: 10.0 - 14.0 standard drinks of alcohol Types: 10 - 14 Cans of Beer (12oz) per week Drug use: No documented in this encounter [facility] 06-08-2025 Note [facility] 06-08-2025 History of Presen t illness Narrative Images from the original note were not included. Cardiac Rehabilitation [facility] Based Program Supervising Physician: Neel Caro Diagnosis: "CHF Phase: 2 Monitor: Yes Session Number: 7 Today's exercise session was comprised of a warm-up, aerobic conditioning phase, aerobic cool-down, and free weight resistance training. Patient tolerated prescribed exercise workload. Tele SR-ST w/ BBB (LVAD)Vitals WNL for patient. No chest discomfort. No medication changes. This is a hospital based cardiac rehab program. Patient working towards exercise goals by increasing exercise duration. Patient working towards education goal by attending education sessions in cardiac rehabilitation. Patient has verbalized understanding of diabetes education topic and the relation to disease managment. Patient's Daily Exercise Log will be scanned into [email or web address] once it is completed. These can be viewed by going under the "Scanned Documents" tab and looking for documents labeled "Cardiac Rehabilitation." Daily Exercise Logs contain exercise data such as, but not limited to modality, intensity, duration and frequency of exercise, along with vital signs pre-, during, and post-exercise. Refer to patient's paper medical record for ECG rhythm strips, physician prescribed Individualized Treatment Plan, and education sessions covered. Elo Whitt Bulk Sugar Handler documented in this encounter [facility] 06-05-2025 Note [facility] 06-05-2025 History of Presen t illness Narrative Images from the original note were not included. Cardiac Rehabilitation [facility] Based Program Supervising Physician: Shobha Clifton Diagnosis: "CHF Phase: 2 Monitor: Yes Session Number: 6 Today's exercise session was comprised of a warm-up, aerobic conditioning phase, aerobic cool-down, and free weight resistance training. Patient tolerated prescribed exercise workload. Tele SR with occasional unifocal PVCs. Vitals WNL for patient. No chest discomfort. No medication changes. This is a hospital based cardiac rehab program. Patient working towards exercise goals by increasing exercise duration. Patient working towards education goal by attending education sessions in cardiac rehabilitation. Patient has verbalized understanding of Cholesterol education topic and the relation to disease managment. Patient's Daily Exercise Log will be scanned into [email or web address] once it is completed. These can be viewed by going under the "Scanned Documents" tab and looking for documents labeled "Cardiac Rehabilitation." Daily Exercise Logs contain exercise data such as, but not limited to modality, intensity, duration and frequency of exercise, along with vital signs pre-, during, and post-exercise. Refer to patient's paper medical record for ECG rhythm strips, physician prescribed Individualized Treatment Plan, and education sessions covered. Adrianne Espinoza RN BSN documented in this encounter [facility] 06-03-2025 Note [facility] 06-03-2025 History of Presen t illness Narrative Images from the original note were not included. Cardiac Rehabilitation [facility] Based Program Supervising Physician: Shobha Clifton Diagnosis: "CHF Phase: 2 Monitor: Yes Session Number: 5 Today's exercise session was comprised of a warm-up, aerobic conditioning phase, aerobic cool-down, and free weight resistance training. Patient tolerated prescribed exercise workload. Tele SR-ST w/BBB (LVAD). Vitals WNL for patient. No chest discomfort. No medication changes. This is a hospital based cardiac rehab program. Patient working towards exercise goals by sustaining exercise intensity and duration. Patient working towards education goal by attending education sessions in cardiac rehabilitation. Patient has verbalized understanding of blood pressure education topic and the relation to disease managment. Patient's Daily Exercise Log will be scanned into [email or web address] once it is completed. These can be viewed by going under the "Scanned Documents" tab and looking for documents labeled "Cardiac Rehabilitation." Daily Exercise Logs contain exercise data such as, but not limited to modality, intensity, duration and frequency of exercise, along with vital signs pre-, during, and post-exercise. Refer to patient's paper medical record for ECG rhythm strips, physician prescribed Individualized Treatment Plan, and education sessions covered. Alyssa Machuca, Bulk Sugar Handler documented in this encounter [facility] 06-01-2025 Note [facility] 06-01-2025 History of Presen t illness Narrative Images from the original note were not included. Cardiac Rehabilitation [facility] Based Program Supervising Physician: Shobha Clifton Diagnosis: "CHF Phase: 2 Monitor: Yes Session Number: 4 Today's exercise session was comprised of a warm-up, aerobic conditioning phase, aerobic cool-down, and free weight resistance training. Patient tolerated prescribed exercise workload. Tele SR-ST w/BBB (LVAD). Vitals WNL for patient. No chest discomfort. No medication changes. This is a hospital based cardiac rehab program. Patient working towards exercise goals by increasing exercise intensity and duration. Patient working towards education goal by attending education sessions in cardiac rehabilitation. Patient has verbalized understanding of weight management education topic and the relation to disease managment. Patient's Daily Exercise Log will be scanned into [email or web address] once it is completed. These can be viewed by going under the "Scanned Documents" tab and looking for documents labeled "Cardiac Rehabilitation." Daily Exercise Logs contain exercise data such as, but not limited to modality, intensity, duration and frequency of exercise, along with vital signs pre-, during, and post-exercise. Refer to patient's paper medical record for ECG rhythm strips, physician prescribed Individualized Treatment Plan, and education sessions covered. Alyssa Machuca, Bulk Sugar Handler documented in this encounter [facility] 05-29-2025 Note [facility] 05-29-2025 History of Presen t illness Narrative Images from the original note were not included. Cardiac Rehabilitation [facility] Based Program Supervising Physician: Sesar Kendall Diagnosis: "CHF Phase: 2 Monitor: Yes Session Number: 3 Today's exercise session was comprised of a warm-up, aerobic conditioning phase, aerobic cool-down, and free weight resistance training. Patient tolerated prescribed exercise workload. Tele SR/ Atrial flutter w/ BBB (LVAD). Vitals WNL for patient. No chest discomfort. No medication changes. This is a hospital based cardiac rehab program. Patient working towards exercise goals by increasing exercise intensity and duration. Patient working towards education goal by attending education sessions in cardiac rehabilitation. Patient has verbalized understanding of CAD risk factors education topic and the relation to disease managment. Patient's Daily Exercise Log will be scanned into [email or web address] once it is completed. These can be viewed by going under the "Scanned Documents" tab and looking for documents labeled "Cardiac Rehabilitation." Daily Exercise Logs contain exercise data such as, but not limited to modality, intensity, duration and frequency of exercise, along with vital signs pre-, during, and post-exercise. Refer to patient's paper medical record for ECG rhythm strips, physician prescribed Individualized Treatment Plan, and education sessions covered. Elo Whitt Bulk Sugar Handler documented in this encounter [facility] 05-27-2025 Note [facility] 05-27-2025 History of Presen t illness Narrative Images from the original note were not included. Cardiac Rehabilitation [facility] Program Supervising Physician: Sesar Kendall Diagnosis: "CHF Phase: 2 Monitor: Yes Session Number: 2 Today's exercise session was comprised of a warm-up, aerobic conditioning phase, aerobic cool-down, and free weight resistance training. Patient tolerated prescribed exercise workload. Tele SR/Atrial flutter w/BBB (LVAD). Vitals WNL for patient. No chest discomfort. No medication changes. This is a hospital based cardiac rehab program. Patient working towards exercise goals by sustaining exercise intensity and duration. Patient working towards education goal by attending education sessions in cardiac rehabilitation. Patient has verbalized understanding of sugar, fiber, sodium education topic and the relation to disease managment. Patient's Daily Exercise Log will be scanned into [email or web address] once it is completed. These can be viewed by going under the "Scanned Documents" tab and looking for documents labeled "Cardiac Rehabilitation." Daily Exercise Logs contain exercise data such as, but not limited to modality, intensity, duration and frequency of exercise, along with vital signs pre-, during, and post-exercise. Refer to patient's paper medical record for ECG rhythm strips, physician prescribed Individualized Treatment Plan, and education sessions covered. Alyssa Machuca Bulk Sugar Handler documented in this encounter [facility] 05-22-2025 Note [facility] 05-22-2025 History of Presen t illness Narrative Images from the original note were not included. Cardiac Rehabilitation [facility] Based Program Supervising Physician: Sesar Kendall Diagnosis: "CHF Phase: 2 Monitor: Yes Session Number: 1 Today's exercise session was comprised of a warm-up, aerobic conditioning phase, aerobic cool-down, and free weight resistance training. Patient tolerated prescribed exercise workload. Tele SR-ST without ectopic beats (LVAD). Vitals WNL for patient. No chest discomfort. No medication changes. This is a hospital based cardiac rehab program. Patient working towards exercise goals by increasing exercise intensity and duration. Patient working towards education goal by attending education sessions in cardiac rehabilitation. Patient has verbalized understanding of portion control education topic and the relation to disease managment. Patient's Daily Exercise Log will be scanned into [email or web address] once it is completed. These can be viewed by going under the "Scanned Documents" tab and looking for documents labeled "Cardiac Rehabilitation." Daily Exercise Logs contain exercise data such as, but not limited to modality, intensity, duration and frequency of exercise, along with vital signs pre-, during, and post-exercise. Refer to patient's paper medical record for ECG rhythm strips, physician prescribed Individualized Treatment Plan, and education sessions covered. Elo Whitt Bulk Sugar Handler documented in this encounter [facility] 05-12-2025 Note [facility] 04-14-2025 Telephone encounter Note Called patient regarding cardiac rehab program. Patient did not answer, so I left a message on voicemail with instructions on how to contact me. [phone] [facility] 04-14-2025 Miscellaneous Notes Called patient regarding cardiac rehab program. Patient did not answer, so I left a message on voicemail with instructions on how to contact me. [phone] documented in this encounter [facility] 03-17-2025 History of Presen t illness Narrative The patient did not show up for this appointment. documented in this encounter [facility] 01-29-2025 History of Presen t illness Narrative Reviewed blood culture from 12/06 that resulted on 01/28 [facility]. Pt received appropriate course of treatment, subsequent cultures are negative. documented in this encounter [facility] 12-23-2024 History of Presen t illness Narrative HEART FAILURE PROCEDURAL CONSENT NOTE Surgery/Procedure Date: Procedure: RHC RAMP STUDY Informed Consent: The risks including radiation skin injury, benefits, and anticipated outcomes of the procedure, the risk and benefits of the alternatives to the procedure,and the roles and tasks of the personnel to be involved, were discussed with the patient, and the patient consents to the procedure and agrees to proceed. Consented by: Sacha Mock MD See separate Procedural Sedation Consent form if sedation is to be administered. UNIVERSAL PROTOCOL / SAFETY CHECKLIST Procedure to be Performed: RHC RAMP STUDY Sign In: A Moment of CARE was completed. Appropriate PPE (Personal Protective Equipment) worn by all providers involved with the procedure. Special equipment not required. Patient/Surrogate Stated/Verified: Patient name, Date of , Relevant allergies, and The intended procedure Time Out: Relevant labs, photos, and/or imaging studies have been reviewed. Intended patient and procedure match the source document(s) (e.g. consent, H&P, associated studies [imaging, pathology]) match the intended patient and procedure. Consent obtained and matches the intended procedure. Yes. Correct side/site has been marked and visible. Medications required for this procedure are verified. Fire risk assessed and interventions discussed. Implants: Correct implant(s) confirmed including size and side. Expiration date(s) reviewed. Sign Out: Specimens are all correctly labeled and sent. All instruments, equipment, possible retained foreign bodies are accounted for. Yes. The post-procedure plan of care has been communicated to patient's multidisciplinary team (including bedside nurse for hospitalized patients). History and Physical: Brenda Espinosa is a 49 year old year-old patient here for Right Heart Catheterization for the indication of RAMP STUDY Pertinent examination today revealed: Lungs: clear to auscultation Heart: Regular rate & rhythm, S1, S2, no S3, No murmers or clicks Post Procedural Plan: Transfer back to inpatient nursing unit SIGNATURE: Sacha Mock MD PATIENT NAME: Brenda Espinosa DATE: December 23, 2024 TIME: 9:13 AM documented in this encounter [facility] 12-11-2024 History of Presen t illness Narrative [facility] Outpatient Parenteral Antimicrobial Therapy (OPAT) Start Form Patient Info Patient MRN Patient Name Address Date of [id number] Brenda Espinosa [address] [facility] [address] 1975 Start Date 12/11/2024 Physician Group Cc_main Diagnosis Group Diagnosis 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 Flush IV line with 10-20 mL of normal saline (0.9%) after lab draw. Labs may be drawn on Sunday if Sunday is a holiday. Follow up Provider Follow up date/time Appointment type Slava Polanco MD 509:00 EDT Virtual Provider Monitoring Treatment Course Slava Polanco MD Address [address] [place] [address] documented in this encounter [facility] 11-26-2024 History of Presen t illness Narrative Summary: IRB 24-010: [employer] Bcngx-ho-Obhe Hemostasis Monitoring and Perioperative Blood and Blood Component Transfusion IRB 24-010: [employer] Rhaie-dv-Tzpo Hemostasis Monitoring and Perioperative Blood and Blood Component Transfusion during High-Risk Complex Cardiac Surgery: A Randomized Clinical Trial Mr. Espinosa participated in IRB# [id number]. postoperatively he demonstrated respiratory failure, delirium, cardiogenic shock, heart failure, hypotension, SEDRICK, malnutrition, hyperglycemia, leukocytosis, and prolonged mechanical ventilation. these events were not related to study #[id number] Wilda Vines MD Wrapping Clerk [facility] documented in this encounter [facility] 11-25-2024 History of Presen t illness Narrative Summary: IRB 24-010: [employer] Qolxw-ni-Hbha Hemostasis Images from the original note were not included. IRB 24-: [employer] Dgxle-ea-Exfm Hemostasis Monitoring and Perioperative Blood and Blood Component Transfusion during High-Risk Complex Cardiac Surgery: A Randomized Clinical Trial PI: Wilda Vines MD On November 25, 2024, we collected 2.7 cc of blood from Brenda Espinosa on ICU arrival. The sample was processed by [employer]. The results showed: According to the protocol study, no treatment was suggested as outline below: Aye Irwin, Research Coordinator Clinical Research Fellow [facility] documented in this encounter [facility] 11-25-2024 History of Presen t illness Narrative Summary: IRB 24-010: [employer] Qphqj-xt-Ydpk Hemostasis Images from the original note were not included. IRB 24-: [employer] Gdfou-fg-Cula Hemostasis Monitoring and Perioperative Blood and Blood Component Transfusion during High-Risk Complex Cardiac Surgery: A Randomized Clinical Trial PI: Wilda Vines MD On November 25, 2024, we collected 2.7 cc of blood from Brenda Espinosa for additional testing due to physician`s decision according to the study protocol. The sample was processed by [employer]. The results showed According to the protocol study, no treatment was suggested as outline below: Aye Irwin, Research Coordinator Clinical Research Fellow [facility] documented in this encounter [facility] 11-25-2024 History of Presen t illness Narrative Summary: IRB : [employer] Bbdjz-vq-Kfud Hemostasis Images from the original note were not included. IRB : [employer] Ndxaq-cl-Yttx Hemostasis Monitoring and Perioperative Blood and Blood Component Transfusion during High-Risk Complex Cardiac Surgery: A Randomized Clinical Trial PI: Wilda Vines MD On November 25, 2024, we collected 2.7 cc of blood from Brenda Espinosa per study protocol 10-20 minutes after protamine administration. The sample was processed by [employer]. The results showed: According to the protocol study, no treatment was suggested as outline below: Aye Irwin, Research Coordinator Clinical Research Fellow [facility] documented in this encounter [facility] 11-25-2024 History of Presen t illness Narrative Images from the original note were not included. IRB 24: [employer] Mohld-go-Tmsq Hemostasis Monitoring and Perioperative Blood and Blood Component Transfusion during High-Risk Complex Cardiac Surgery: A Randomized Clinical Trial PI: Wilda Vines MD On November 25, 2024, we collected 2.7 cc of blood per protocol from Brenda P [place] 15 minutes before separation from cardiopulmonary bypass. The sample was processed by [employer]. The results showed: According to the protocol study, no treatment was suggested as outline below: Dianna Long, Research Coordinator Clinical Research Fellow [facility] documented in this encounter [facility] 11-25-2024 History of Presen t illness Narrative Images from the original note were not included. IRB 24-010: [employer] Ttduz-qn-Sjco Hemostasis Monitoring and Perioperative Blood and Blood Component Transfusion during High-Risk Complex Cardiac Surgery: A Randomized Clinical Trial PI: Wilda Vines MD On November 25, 2024, we collected 2.7cc of baseline blood from the patient Brenda Espinosa per protocol at time point between induction and incision. The sample was processed by [employer]. The results are showed below: Dianna Long, Research Coordinator Clinical Research Fellow Anesthesiology Research [facility] documented in this encounter [facility] 11-25-2024 History of Presen t illness Narrative Summary: IRB#: [id number]: [employer] Zsgkg-ej-Wsku Hemostasis Team Communication Regarding Research Enrollment This is a research study note. Patient assessments recorded here should not guide either Clinical care or clinical decision-making The research team and PI have communicated with the care team regarding the patient Brenda Espinosa and their participation in the study IRB#: [id number]: [employer] Cuxcg-ju-Loph Hemostasis Monitoring and Perioperative Blood and Blood Component Transfusion during High-Risk Complex Cardiac Surgery: A Randomized Clinical Trial. The team is aware of the study intervention and the study team's assessment for eligibility per [facility] IRB approved protocol. The team is aware that the patient is to be monitored for any adverse events for the extent of their participation in this study and that the discovery of events or any concerns are to relayed to the [facility] study PI Wilda Vines MD. Specific details related to the study intervention can be found under the "research active" link. This is one of the dial-buttons adjacent to the patient photo in the top left-hand corner of the patient chart; depicted on the link is a conical/Erlenmeyer flask with a small flag icon. Additionally, my contact information is provided below and I am available at any time to answer questions regarding the research study. I, along with the Anesthesiology Research [place], thank the entire clinical care team for your collaboration. Inclusion Criteria 1. Age: Patient is an adult aged 18 years or older. 2. Surgery Type: Patient is scheduled for aortic surgery or high-risk cardiac surgery requiring cardiopulmonary bypass, specifically: -Reoperative surgery -Active endocarditis -Expected need for intraoperative circulatory arrest -Radiation heart disease -End-stage kidney disease requiring renal replacement therapy -Combination surgery involving more than one valve or valve plus CABG -Low left ventricular ejection fraction (EF < 30%) with potential need for mechanical circulatory support (e.g., intra-aortic balloon pump, ECMO, or percutaneous left ventricular assist device). The patient does not meet any of the following exclusion criteria: 1. Coagulation Disorders: No preoperative diagnosis of a pre-existing coagulation or bleeding disorder. 2. Abnormal Coagulation Parameters: No preoperative abnormal coagulation disorder (aPTT > 40 seconds in the absence of heparin therapy and/or platelet count below 100,000/uL). 3. Liver Disease: No history of liver disease, including cirrhosis, liver enzymes > 3x normal range, or elevated PT indicating abnormal liver synthetic function not explained by other comorbidities. 4. /: Patient is not or . 5. Blood Transfusions: Patient does not refuse to accept red blood cells and blood component transfusions. 6. Contraindications: No contraindications to proposed interventions. 7. Language and Comprehension: Patient is able to understand Portuguese as a first language and can comprehend the study and/or consent forms. 8. Vulnerable Populations: Patient does not fall under vulnerable populations, including prisoners, human fetuses, and neonates. Dianna Long, Research Coordinator Research Fellow Anesthesiology Research [facility] documented in this encounter [facility] 11-17-2024 History of Presen t illness Narrative The patient was presented at the Acute Heart Failure Therapeutics Committee Meeting on November 17, 2024 and was approved for LVAD as (DT) Destination Therapy . Patient meets selection criteria for (DT) Destination Therapy . Indications: NYHA: IV INTERMACS LEVEL: 2 CMS LVAD specific criteria Criteria for LVAD NYHA FC IV (Yes) 2. LVEF < 25% (15 %) 3. Inotrope dependent (Yes) If no, CI < 2.2 (not on an inotrope) (Yes) If yes, on OMM based on current HF guidelines for at least 45 of 60 days (no) If no, have advanced HF for at least 14 days (yes/no) AND are dependent on an IABP or similar type temporary support device for at least 7 day (IABP- Impella- now LAVA ECMO support) Contraindications:to transplant to ill at this time, recovery needed and then re-evaluated Attendees included: Cardiac Surg:Hal Vera, [facility]:Henry Busch MD Bhat, Pavan, MD Buehner, Jennifer, APRN.FLAT SORTER PROCESSOR Mando Saravia, Claudette Brush MD Katzianer, David, MD Kraus, Katelyn, IONA Yanez, Cathy, Edwardo East MD Piskach, Jocelyn, V, RN Simkowski, Julia, MD Straka, Heather, Elyssa Thompson MDFinance:Bernard AlaPharmacy:Dustin Mckenzie, [facility] Amie Nava [facility]:Annemarie Le LISW Sakai, Alexandra, LISWTransplangabino Center:Hilda Avery RN Smyczek, Natalie M, APRN.CNPOther Attendees:Charity Esquivel DO Vest, Amanda, MD documented in this encounter [facility] 11-17-2024 History of Presen t illness Narrative Summary: Psychosocial Assessment PSYCHOSOCIAL ASSESSMENT Social Work met with Brenda Espinosa in hospital on October 31, 2024 to conduct a Psychosocial interview as part of their Advanced Heart Failure Therapies evaluation. Social Work later confirmed caregiver supports. The following information is taken from these interviews: IDENTIFYING INFORMATION: Brenda Espinosa is a 49 year old White/Non- or male who resides alone in [place], [place] ([address] to ) in a one level [facility]. Pt. has two cats. He is and has one adult DTR, Carmel Moreno ([phone]) who is Pt. POA and emergency contact. FAMILY SYSTEMS/SUPPORT NETWORK: Pt. was raised by 2 parents, mother and father, Darnell and Екатерина Espinosa in [facility]. Pt. father was a manager hi. Pt. raised alongside two brothers and one sister. Pt. younger brother, Bowen, resides in [place], [place]. Other siblings further away from Pt. Pt. at 21 yo for 20 years. Pt. from in 2018. They remain good friends. They have one DTR, Carmel Moreno, who lives with in [place], [place]. Carmel is 33 weeks with her first child. She will be staying home with her child and leaving her job. Pt. named supports for [facility] include in DTR Carmel as able with a at first, but primary his parents, Darnell and Екатерина ([phone]). Parents reside in [place], [place] approximately [place] [address] to . Pt. will stay with them while he recovers. They will bring Pt. to appointments. EDUCATION/EMPLOYMENT/FINANCIAL/I NSURANCE: Pt. graduated from and joined the [employer] from [id number]. 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 Pt. took some classes in [email or web address]. He also took classes toward a Bachelors in Business Management at [employer]. Pt. worked at a [employer] in [place]. Pt. 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 Pt. worked at a [employer] for a few months. Pt. then worked for the [employer]. 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 Pt. enjoys this job very much and is currently employed here. Pt. has VA health insurance. referred to . MEDICAL HISTORY/FUNCTIONING ABILITY: Pt. describes unknown issue since . At 39 yo, 10 years ago, Pt. with first cardiac issue. Underwent surgery for bicuspid, aortic valve repair. [id number], Pt. received Cardiomyopathy diagnosis, EF lower. Pt. told due to genetics, sleep apnea, poor diet, smoking, drinking, lack of exercise. Maybe d/t Covid? Pt. had an episode and subsequent echo. 2020, ICD placed. Pt. with all cardiac care through [facility]. 2023, later in year, Pt. issues with fluid, swelling, Afib. 09/21/2024, Pt. went to hospital by ambulance, ICU stay. Returned home and had bloodwork done, felt sick, worked a few days, returned to ER and transferred to , then had subsequent arrest. At time of interview. Since that time, Pt. has had complicated course at . COMPLIANCE HISTORY: Pt. independent in taking medications. Drives. NICOTINE/SUBSTANCE HISTORY: Nicotine: Past for many years on and off, last time 2019. ETOH: Describes that he "overdid it" at times, fondness of beer and breweries, 2-3 beers daily for many years. Denies DUI, denies arrests. DTR with collateral that Pt. liked beer, denies any awareness maladaptive behaviors when drinking. DTR reports that once hospitalized this admission he asked DTR to throw away all of his beer. Drugs:Denies Sleep Med:Denies Pain Med: Denies MENTAL HEALTH & COPING OF PATIENT & FAMILY: Pt. denies mental illness, ever. Cecil with prayer (Pentecostal Denominational self-described). Pt. enjoys the water and fishing. COMPREHENSION OF ILLNESS: At time of interview, Pt. aware his case is being reviewed and determined best course of action of either no options, LVAD or transplant. Pt. wants to live to meet grandchild. ADVANCED DIRECTIVES: Yes, located in EMR. DTR YASMIN, then brother Bowen. EDUCATION of PATIENT: Education provided regarding the following: LVAD & transplant evaluation process, hospital recovery with potential for complications and extended stay, atleast a 2 week relocation and caregiver requirement, heart transplant 1 year follow-up commitment to the CC, as well as LVAD follow-up. SW educated on his ETOH use and how that may need to be review further with referral to ADRC. Pt. understanding. Pt/family confirmed understanding of information discussed. IMPRESSION: Pt. received as pleasant, cooperative and emotional during Psychosocial interview with Social Work. Pt. supports include his parents, Darnell and Екатерина Espinosa, as well as adult DTR and . DTR is due in December with first child. GLORIA confirmed. Financially limited once discharged likely depending on disability from his work for [employer] [facility] [employer] [facility]. Pt. does have VA coverage. Pt. with an etoh use history that is concerning for abuse, as continued to use dailydespite direction from health care providers. Once well enough, would refer to [facility] ADRC for further evaluation and treatment as appropriate. Pt. without mental illness. PLAN/RECOMMENDATION/SIPAT SCORE: Patient presents with moderate to high level of Psychosocial risk due to his ETOH history. Pt. without absolute contraindications for AHFT. Pt. is a minimally acceptable candidate. SIPAT Total Score: SIPAT Total Score: 25 SIPAT Score Interpretation 0 - 6 Excellent candidate Recommend to list for transplantation without reservations. 7 - 20 Good candidate Recommend to list for transplantation - although monitoring of identified risk factors may be required. 21 - 39 Minimally Acceptable Candidate Consider Listing. Identified risk factors must be satisfactorily addressed before representing for consideration. 40 - 69 Poor Candidate Recommend deferral while identified risks are satisfactorily addressed. > 70 High Risk candidate, significant risks identified Surgery is not recommended while identified risk factors continue to be present. Gladis Rodriguez, JEAN PAUL, JUAN-S, [facility] Automobile Drivers Heart Transplant & Mechanical Circulatory Support documented in this encounter [facility] 10-31-2024 Note In-Office Device Vidya luation * Device type: S-ICD at bedside J32 * Presenting Rhythm: AF controlled VR * Battery Status: Battery is at Battery is at 64%. * Atrial Arrhythmias: Frequent irregular episodes; strips and live tele indicated AF. . Anticoagulants listed: Eliquis recently started for home meds per patient. * Ventricular Arrhythmias: No new V detections in the last 11 months since interrogated. * Lead Measurements: Lead impedance normal. ECG waveform clean with good R:T ratio. * Programming Changes Made Today: None * Follow Up: Local f/u with [facility]. NOTE TO PROVIDERS: "Cardiac Implanted Devices" Flowsheets contain detailed Programming and Evaluation data. Full Docket/PDF found below under "Scanned Documents". [facility] 10-31-2024 History of Presen t illness Narrative Heart and Vascular [facility] Section of Heart Failure and Cardiac Transplant Medicine OUTPATIENT VISIT DATE 10/31/24 OUTPATIENT VISIT TYPE Pre-Advanced Therapy Pharmacotherapy Evaluation Patient Name: Brenda Espinosa Brenda Espinosa is a 49 year old male who was seen today for heart failure pre-advanced therapy pharmacotherapy evaluation. The patient s heart failure is managed by Dr Han as an outpatient. Being followed by Dr. Raza while inpatient. PMH includes NICM c/b HFrEF (EF 26% 10/06) likely secondary to excessive alcohol use, s/p ICD Bicuspid aortic valve s/p SAVR 2015, Secondary moderate MR and severe TR, Persistent atrial fibrillation, HTN, HLD and CKD (baseline creatinine 2-2.3), CHAYO on CPAP Allergies: ALLERGIES No Known Allergies Evaluation of current pharmacotherapy: Medication List Medication Directions Comments Action/Plan amiodarone (PACERONE) 200 mg tablet Take 200 mg by mouth once daily. Taking as prescribed apixaban (ELIQUIS) 5 mg tab(s) Take 5 mg by mouth two times a day. Taking a prescribed Ascorbic Acid (VITAMIN C) 1,000 mg tablet Take 500 mg by mouth once daily. Taking from OTC aspirin 81 mg chewable tablet Take 81 mg by mouth once daily. Taking atorvastatin (LIPITOR) 20 mg tablet Take 1 tablet by mouth once daily. Taking as prescribed cholecalciferol (VITAMIN D-3) 50 mcg (2,000 unit) tablet Take 2,000 Units by mouth once daily. Taking from OTC CPAP Change pressure to Settings 9-13 cm H2O, increase humidity, suitable mask per pt preference (Nasal pillow mask), chin strap, head gear, humidity, heated tubing (SELENA), lifetime supplies. G47.33 CHAYO N/A cyanocobalamin (VITAMIN B-12) 1,000 mcg tab Take 1,000 mcg by mouth once daily. Taking from OTC empagliflozin (JARDIANCE) 25 mg tablet Take 12.5 mg by mouth daily with breakfast. Was taking as prescribed but was held when pt was admitted to [facility]. metoprolol succinate ER (TOPROL XL) 50 mg 24 hr tablet Take 50 mg by mouth once daily. Was taking as prescribed but was held when pt was admitted to [facility]. multivit-minerals/folic acid (CENTRUM ADULTS ORAL) Take 1 tablet by mouth once daily. Taking from OTC sacubitril-valsartan (ENTRESTO) 49-51 mg tablet Take 1 tablet by mouth two times a day. Was taking as prescribed but was held when pt was admitted to [facility]. spironolactone (ALDACTONE) 25 mg tablet Take 25 mg by mouth once daily. Was taking as prescribed but was held when pt was admitted to [facility]. torsemide (DEMADEX) 20 mg tablet Take 20 mg by mouth once daily. Started recently at [facility]. Was on furosemide previously Medication reconciliation: Completed Pharmacy: [facility] Prescription insurance: [place] Knowledge of regimen: Well-informed on regimen OTC/Herbal medications: None other than the vitamins listed above Anticoagulation: Apixaban Was taking apixaban 5 mg BID HOMEOPATHIC DOCTOR. He is currently on IV heparin while inpatient OARRS review: Reviewed None Adherence Evaluation: How often do you forget to take your medication? Very rare event. Pretty routine and structured about taking medications and taking on time. Over the past two weeks, how many days did you not take your medicine? None, very on top of taking medications How often do you cut back or stop taking your medication without telling your doctor, because you felt worse when you took it? The first time was this past summer, that was mainly with jardiance and spironolactone when BP was dropping. Knows not to do that anymore. When you travel or leave home, how often do you forget to bring along your medications? Always bring extra medications. Did you take your medicine yesterday? Yes How often do you stop taking your medications because you feel better? No, just with jardiance and spironolactone as above. What strategies are you using to help you remember to take your medications? Setting alarm on phone and using a pill box How comfortable do you feel managing your current medication regimen? Feel pretty good, but It has changed quite a bit a recently so there may be an adjustment period. Vaccination History Review: Immunization History Administered Date(s) Administered influenza (IIV4) vaccine, age 6 mo - 64 yr, quadrivalent, PF (AFLURIA, FLUARIX, FLULAVAL, FLUZONE) 09/11/2023 novel influenza (P0U2-74) vaccine, live, nasal 07/22/2009 tetanus diphtheria pertussis (Tdap) vaccine, age 7+ yr (ADACEL, BOOSTRIX) 01/13/2013 02/09/2020 05/02/2023 Education provided: Patient was given an overview of immunosuppressant therapy and an example of the medication schedule. Patient was educated on expected adverse effects and the importance of adherence to transplant medication regimens. All questions were answered to patient s satisfaction. Patient was informed to contact the clinic if any questions or concerns arise. VISIT SUMMARY Potential drug-drug interaction with immunosuppressant regimen: No Anticoagulation: Pt was on apixaban HOMEOPATHIC DOCTOR. Apixaban has been held since admission and the pt is on IV heparin while inpatient. Anticipate post-advanced therapy medication regimen non-adherence? No Factors affecting learning: None Follow up plan: None There are no medication issues identified that would preclude advanced therapies in this patient. Michele Sam RPh October 31, 2024 12:39 PM documented in this encounter [facility] 10-22-2024 History of Presen t illness Narrative See inpatient note for this encounter. Claudine Hernandez DMD October 22, 2024 2:01 PM documented in this encounter [facility] 10-21-2024 History of Presen t illness Narrative Images from the original note were not included. HEART TRANSPLANT EVALUATION WORK-UP See epic encounter "committee review" 11/17/24 PATIENT INFORMATION Patient Name: Brenda Espinosa Address: [address] [place] [address] (home) [phone] (cell) County : [place] Email: (Age): 1975 (49 year old) Sex: male Marital Status: #: [id number] Race: White Ethnicity: Not Referring Date: October 21, 2024 Referring Type: Referral Referred By: [facility] Insurance Type: Payor: [facility] / Plan: [facility] [employer] / Product Type: PPO / FC for Evaluation on: 10/21/24 CC Valve Setter: Lorenzo CHOWDHURY Surgeon: PRE-HEART TRANSPLANT CONSENTS Evaluation Informed Consent Date: October 21, 2024 Version: Notice of Potential Noncoverage (NPN) Consent: October 21, 2024 Option #: 2 Medical Release of Records Consent: October 21, 2024 Human Heart Tissue Research Consent: October 21, 2024 DIAGNOSIS: Dilated Myopathy: Other Specify (NICM) NYHA FUNCTIONAL CLASS: BLOOD TYPE ABO/RH(D) (no units) Date Value 08/02/2021 B POSITIVE 11/01/2015 B POSITIVE ABO/RH(D) (no units) Date Value 08/02/2021 B POSITIVE 11/01/2015 B POSITIVE Antibody Screen (no units) Date Value 10/20/2024 Negative 10/16/2024 Negative ALLOGEN ANTIBODY SUMMARY: Serum date: 10/21/2024 Combined Class I & II cPRA: 0 Combined Strong Class I & II cPRA: 0 Class I cPRA: 0 Class I specificities: none Strong Class I cPRA: 0 Strong Class I specificities: none Class II cPRA: 0 Class II specificities: none Strong Class II cPRA: 0 Strong Class II specificities: none Comments: Please note that this is a preliminary report only. HLA typing is pending and Ab profile may change after HLA type is finalized. BMI/ HEIGHT/ WEIGHT Estimated body mass index is 40.43 kg/m as calculated from the following: Height as of 10/19/24: 177.8 cm (5' 10"). Weight as of 10/22/24: 127.8 kg (281 lb 12 oz). GFR/ MELD Latest Reference Range & Units 10/23/24 00:04 eGFR >=60 mL/min/1.73m 17 (L) (L): Data is abnormally low MELD 3.0: 29 at 10/23/2024 12:04 AM MELD-Na: 29 at 10/23/2024 12:04 AM Calculated from: Serum Creatinine: 4.16 mg/dL (Using max of 3 mg/dL) at 10/23/2024 12:04 AM Serum Sodium: 128 mmol/L at 10/23/2024 12:04 AM Total Bilirubin: 1.7 mg/dL at 10/23/2024 12:04 AM Serum Albumin: 3.7 g/dL (Using max of 3.5 g/dL) at 10/23/2024 12:04 AM INR(ratio): 1.3 at 10/23/2024 12:04 AM Age at listing (hypothetical): 49 years Sex: Male at 10/23/2024 12:04 AM ALLERGIES ALLERGIES No Known Allergies CURRENT MEDICATIONS Current Facility-Administered Medications on File Prior to Visit Medication heparin nomogram - NURSING INSTRUCTIONS DOBUTamine iv infusion 1,000 mg in D5W 250 mL (DOBUTREX) potassium chloride ER 40 mEq tab(s) (KLOR-CON) polyethylene glycol 3350 17 g packet spironolactone 25 mg tab(s) (ALDACTONE) heparin iv infusion 25,000 units in 0.45% NaCl 250 mL PREMIX gabapentin 100 mg cap(s) (NEURONTIN) potassium chloride iv piggyback 20 mEq/50 mL potassium chloride ER 40-120 mEq tab(s) (KLOR-CON) potassium chloride 40-120 mEq oral powder (KLOR-CON) magnesium oxide 200 mg tab(s) (MAG-OX) magnesium sulfate 1 g in D5W 100 mL magnesium sulfate iv piggyback in sterile water 2 g 50 mL senna 8.6 mg tab(s) (SENOKOT) furosemide iv infusion 500 mg in 50 mL (LASIX) amiodarone 200 mg tab(s) (PACERONE) atorvastatin 20 mg tab(s) (LIPITOR) acetaminophen 1,000 mg tab(s) (TYLENOL) melatonin 3 mg tab(s) NaCl 0.9% iv flush bag Current Outpatient Medications on File Prior to Visit Medication Sig torsemide (DEMADEX) 20 mg tablet Take 20 mg by mouth once daily. amiodarone (PACERONE) 200 mg tablet Take 2 tablets by mouth once daily for 4 days, THEN 1 tablet once daily. DOBUTamine (DOBUTREX) 1,000 mg/250 mL (4,000 mcg/mL) infusion Inject 322.25 mcg/min intravenously continuous. (Patient not taking: Reported on 10/06/2024) midodrine (PROAMITINE) 5 mg tablet Take 1 tablet by mouth three times a day. Every 4 hours apixaban (ELIQUIS) 5 mg tab(s) Take 1 tablet by mouth two times a day. atorvastatin (LIPITOR) 20 mg tablet Take 1 tablet by mouth once daily. CPAP Change pressure to Settings 9-13 cm H2O, increase humidity, suitable mask per pt preference (Nasal pillow mask), chin strap, head gear, humidity, heated tubing (SELENA), lifetime supplies. G47.33 CHAYO No current facility-administered medications for this visit. Facility-Administered Medications Ordered in Other Visits Medication Dose Route Frequency amiodarone 200 mg tab(s) (PACERONE) 200 mg ORAL DAILY atorvastatin 20 mg tab(s) (LIPITOR) 20 mg ORAL AT BEDTIME acetaminophen 1,000 mg tab(s) (TYLENOL) 1,000 mg ORAL q 8 H PRN melatonin 3 mg tab(s) 3 mg ORAL DAILY (8 PM) NaCl 0.9% iv flush bag 20 mL INTRAVENOUS PRN furosemide iv infusion 500 mg in 50 mL (LASIX) 40 mg/hr INTRAVENOUS CONTINUOUS potassium chloride iv piggyback 20 mEq/50 mL 20 mEq INTRAVENOUS PRN potassium chloride ER 40-120 mEq tab(s) (KLOR-CON) 40-120 mEq ORAL PRN potassium chloride 40-120 mEq oral powder (KLOR-CON) 40-120 mEq ORAL/FEEDING TUBE PRN magnesium oxide 200 mg tab(s) (MAG-OX) 200 mg ORAL PRN magnesium sulfate 1 g in D5W 100 mL 1 g INTRAVENOUS PRN magnesium sulfate iv piggyback in sterile water 2 g 50 mL 2 g INTRAVENOUS PRN senna 8.6 mg tab(s) (SENOKOT) 8.6 mg ORAL/FEEDING TUBE BID gabapentin 100 mg cap(s) (NEURONTIN) 100 mg ORAL q 12 H heparin iv infusion 25,000 units in 0.45% NaCl 250 mL PREMIX 1,100 Units/hr INTRAVENOUS CONTINUOUS polyethylene glycol 3350 17 g packet 17 g ORAL DAILY PRN potassium chloride ER 40 mEq tab(s) (KLOR-CON) 40 mEq ORAL BID DOBUTamine iv infusion 1,000 mg in D5W 250 mL (DOBUTREX) 5 mcg/kg/min INTRAVENOUS CONTINUOUS NORepinephrine iv infusion 16 mg in D5W 250 mL (LEVOPHED) 0.6-30 mcg/min INTRAVENOUS CONTINUOUS EPINEPHrine iv infusion 4 mg in NaCl 0.9% 250 mL (ADRENALIN) 0.6-10 mcg/min INTRAVENOUS CONTINUOUS vasopressin iv infusion 20 unit/100 mL (VASOSTRICT) 0.06 Units/min INTRAVENOUS CONTINUOUS epoprostenol INHALATION 1.5 mg in NaCl 0.9% 50 mL syringe (VELETRI) 0.01-0.05 mcg/kg/min ([place]) INHALATION CONTINUOUS propofol infusion (DIPRIVAN) 5-60 mcg/kg/min INTRAVENOUS CONTINUOUS nitroprusside 100 mg in D5W 250 mL (NIPRIDE) 10-200 mcg/min INTRAVENOUS CONTINUOUS piperacillin-tazobactam iv piggyback 3.375 g in dextrose (iso-osmotic) 50 mL (ZOSYN) 3.375 g INTRAVENOUS q 6 H vancomycin dosing and monitoring per pharmacy OTHER As Directed fentaNYL 20 mcg/mL iv infusion in NaCl 0.9% 100 mL (SUBLIMAZE) 25-250 mcg/hr INTRAVENOUS CONTINUOUS sodium chloride 0.9 % (flush) 2-10 mL (BD POSIFLUSH) 2-10 mL INTRAVENOUS DIRECTED PRN And perflutren lipid microspheres 1.1 mg/mL 1.3 mL injection (DEFINITY) 1.3 mL INTRAVENOUS DIRECTED PRN PHENYLephrine 160 mg in D5W 250 mL (STEPHANIA-SYNEPHRINE) 25-300 mcg/min INTRAVENOUS CONTINUOUS COMORBIDITIES PAST MEDICAL HISTORY Diagnosis Date A-fib (HCC) 09/2024 ON ELIQUIS Aortic regurgitation Bicuspid aortic valve Essential hypertension CHAYO (obstructive sleep apnea) PAST THORACIC SURGERIES PAST SURGICAL HISTORY Procedure Laterality Date CHOLECYSTECTOMY HX PAST SURGICAL HISTORY OF Aortic Valve Repair VASECTOMY UNI/BI SPX W/POSTOP SEMEN EXAMS ASSESSMENTS Pharmacy: Date: 10/31/24 There are no medication issues identified that would preclude advanced therapies in this patient. Michele Sam RPh Social Work: Date: 10/24/24 SERVICE DATE: 10/24/2024 SERVICE TIME: 1045 Pre-Transplant Heart Recipient Nutrition Assessment: Recommended Malnutrition Diagnosis: No Malnutrition Identified (10/22/24 1227 : Savanna Price RD) Nutrition: Date: 10/22/24 SERVICE DATE: 10/22/2024 SERVICE TIME: 1110 Pre-Transplant Heart Recipient Nutrition Pre-Transplant Assessment: No contraindications;See Care Plan Infectious Disease: Date: Cober to see 10/31/24 Impression: (Some elements copied from my note October 30, 2024, which have been updated where appropriate, and all reflect current medical decision making from today, October 31, 2024) 49 yr old man bicuspid aortic valve s/p aortic valve repair 11/10/2015, NICM, mitral regurgitation, tricuspid regurgitation subcutaneous ICD 08/2021 admitted 10/05/2024 acute heart failure c/b PEA arrest 10/22/2024 &cardiogenic shock s/p IABP 10/22/2024 Pretransplant ID evaluation for heart transplant /heart transplant candidate CMV -, EBV +, Toxo - Strongyloidiasis IgG negative Regarding vaccinations Up-to-date on Tdap Measles IgG positive Needs hepatitis AMB Needs Prevnar and Shingrix Recommendations: No ID contraindications proceeding with transplant Prevnar 20 now Shingrix now and again in 2 months Heplisav-B now and again in 1 month Hepatitis A now and again in 6 months I will see patient again at your request Brennan Barlow MD Pager [phone] October 31, 2024 VACCINES Immunization History Administered Date(s) Administered influenza (IIV4) vaccine, age 6 mo - 64 yr, quadrivalent, PF (AFLURIA, FLUARIX, FLULAVAL, FLUZONE) 09/11/2023 novel influenza (B0P5-11) vaccine, live, nasal 07/22/2009 tetanus diphtheria pertussis (Tdap) vaccine, age 7+ yr (ADACEL, BOOSTRIX) 01/13/2013 02/09/2020 05/02/2023 LABS Chemistry Hemtology Immunology/ Serology Glucose (mg/dL) Date Value 10/23/2024 160 (H) 08/02/2021 119 (H) BUN (mg/dL) Date Value 10/23/2024 55 (H) 08/02/2021 14 Creatinine (mg/dL) Date Value 10/23/2024 4.16 (H) 08/02/2021 1.23 (H) Creatinine (POCT) (mg/dL) Date Value 10/06/2024 1.77 (A) Sodium (mmol/L) Date Value 10/23/2024 128 (L) 08/02/2021 138 Potassium (mmol/L) Date Value 10/23/2024 5.1 08/02/2021 4.6 Chloride (mmol/L) Date Value 10/23/2024 92 (L) 08/02/2021 105 CO2 (mmol/L) Date Value 10/23/2024 17 (L) 08/02/2021 21 (L) Protein, Total (g/dL) Date Value 10/23/2024 6.2 (L) 06/03/2020 7.0 Albumin (g/dL) Date Value 10/23/2024 3.7 (L) 06/03/2020 4.2 Calcium (mg/dL) Date Value 08/02/2021 9.1 Calcium, Total (mg/dL) Date Value 10/23/2024 9.1 Alkaline Phosphatase (U/L) Date Value 10/23/2024 51 06/03/2020 67 Bilirubin, Total (mg/dL) Date Value 10/23/2024 1.7 (H) 06/03/2020 0.8 AST (U/L) Date Value 10/23/2024 28 06/03/2020 62 (H) ALT (U/L) Date Value 10/23/2024 20 06/03/2020 64 (H) Lipase (U/L) Date Value 09/22/2024 130 (H) Magnesium (mg/dL) Date Value 10/23/2024 2.1 Phosphorus (mg/dL) Date Value 10/23/2024 7.4 (H) Uric Acid (mg/dL) Date Value 10/21/2024 14.7 (H) WBC (k/uL) Date Value 10/23/2024 15.68 (H) 08/02/2021 6.33 RBC (m/uL) Date Value 10/23/2024 4.17 (L) 08/02/2021 4.79 Hemoglobin (g/dL) Date Value 10/23/2024 12.4 (L) 08/02/2021 15.5 Hematocrit (%) Date Value 10/23/2024 38.6 (L) 08/02/2021 44.4 MCV (fL) Date Value 10/23/2024 92.6 08/02/2021 92.7 MCH Date Value 10/23/2024 29.7 pg 08/02/2021 32.4 pG MCHC (g/dL) Date Value 10/23/2024 32.1 08/02/2021 34.9 RDW-CV (%) Date Value 10/23/2024 15.1 (H) 08/02/2021 11.9 Platelet Count (k/uL) Date Value 10/23/2024 207 08/02/2021 144 (L) MPV (fL) Date Value 10/23/2024 12.2 08/02/2021 10.6 Neut% (%) Date Value 06/21/2020 68.7 Neutrophils % (%) Date Value 10/21/2024 74.7 Lymph% (%) Date Value 06/21/2020 17.4 Lymphocytes % (%) Date Value 10/21/2024 10.2 [place]% (%) Date Value 06/21/2020 11.6 Monocytes % (%) Date Value 10/21/2024 11.1 Eosin% (%) Date Value 06/21/2020 1.3 Eosinophils % (%) Date Value 10/21/2024 3.0 Baso% (%) Date Value 06/21/2020 1.0 Basophils % (%) Date Value 10/21/2024 0.6 Abs Neut (ANC) (k/uL) Date Value 06/21/2020 4.61 Abs Neut (k/uL) Date Value 10/21/2024 7.33 Abs Lym (K/uL) Date Value 12/28/2011 0.97 Abs [place] (k/uL) Date Value 10/21/2024 1.09 (H) 06/21/2020 0.78 Abs Eosin (k/uL) Date Value 10/21/2024 0.29 06/21/2020 0.09 Abs Baso (k/uL) Date Value 10/21/2024 0.06 06/21/2020 0.07 Latest Reference Range & Units 10/21/24 18:43 CMV Antibody, IgG U/mL 0.57 CMV IgG Qualitative Negative Negative EBV VCA IgG, Qual Negative Positive ! Hep B Core Ab, Total Negative Negative Hep B Surf Ab Quant mIU/mL <8.00 Hep B Surface Ab, Qual Negative Hep B Surface Ag Negative Negative Hep C Antibody IA Negative Negative Hepatitis A IgG Negative HIV 12 Combo (Ag/Ab) Nonreactive Nonreactive HIV Interpretation See comment HSV IgG 1 Qualitative Negative Positive ! HSV IgG 2 Qualitative Negative Negative IgG 700 - 1,600 mg/dL 591 (L) Measles Antibody, IGG Qualitative Positive Positive Mitogen minus Nil >=0.50 IU/mL 0.15 (L) Syphilis Interpretation Cannot exclude recent Treponemal infection if specimen collected within 7-10 days after appearance of suspect lesions or 2-3 weeks after an exposure. Clinical correlation is required. Syphilis Treponemal Screen Nonreactive Nonreactive TB Interpretation This result is indeterminate for Mycobacterium tuberculosis complex antigen responsiveness. Specimens from immunocompromised patients, those <5 years of age, and those with a known recent exposure may fall under this category. Please correlate with clinical picture and other alternative assessments. TB Nil <=8.00 IU/mL 0.01 TB Result Indeterminate TB1 Ag minus Nil <0.35 IU/mL 0.00 TB2 Ag minus Nil <0.35 IU/mL 0.00 Toxo IgG Qual Negative Negative Varicella Zoster IgG, Qual Positive Positive !: Data is abnormal (L): Data is abnormally low Urinalysis/ Creatinine Clearance Endocrine Lipid Panel/ Cardiac pH, Arterial (no units) Date Value 10/23/2024 7.44 11/11/2015 7.38 Specific [place], Ur (no units) Date Value 10/21/2024 1.010 11/24/2019 1.021 Glucose, Urine Date Value 10/21/2024 Negative 11/24/2019 Negative mg/dL Bilirubin, Urine (no units) Date Value 10/21/2024 Negative 11/24/2019 Negative Ketones, Urine (no units) Date Value 10/21/2024 Negative 11/24/2019 Trace (A) Hemoglobin/Blood,Ur Date Value 10/21/2024 Negative 11/24/2019 Negative Protein, Urine Date Value 10/21/2024 Negative 11/24/2019 Negative mg/dL WBC, Urine Date Value 10/02/2024 0-5 /HPF 11/24/2019 0-5 /HPF Estimated Creatinine Clearance: 28.5 mL/min (A) (based on SCr of 4.16 mg/dL (H)). No results found for: "PERIOD", "VOLUME", UXTP24 TSH Date Value 10/21/2024 6.240 mIU/L (H) 02/13/2019 2.560 uU/mL T3 (ng/dL) Date Value 10/21/2024 96 T4 (ug/dL) Date Value 10/21/2024 10.0 Hemoglobin A1C (%) Date Value 10/21/2024 5.8 (H) Vitamin D 25 Hydroxy (ng/mL) Date Value 10/21/2024 32.9 PTH, Intact (pg/mL) Date Value 10/21/2024 70 (H) Testosterone (ng/dL) Date Value 10/21/2024 59 (L) 10/19/2020 1,450 (H) Testosterone Free (ng/dL) Date Value 10/19/2020 47.9 (H) Latest Reference Range & Units 10/21/24 18:43 10/22/24 03:36 Cholesterol, Total <200 mg/dL 71 Triglyceride <150 mg/dL 79 Fasting Time hrs 4 HDL Cholesterol >39 mg/dL 30 (L) LDL Cholesterol <100 mg/dL 25 VLDL Cholesterol <30 mg/dL 16 TC:HDL Ratio <5.10 2.37 LDL:HDL Ratio <2.54 0.83 Non HDL Cholesterol <130 mg/dL 41 Vitamin D 25 Hydroxy 31.0 - 80.0 ng/mL 32.9 (L): Data is abnormally low Coagulation Drug Toxicology PT INR (no units) Date Value 12/27/2015 1.0 INR (no units) Date Value 10/23/2024 1.3 PT Sec (sec) Date Value 10/23/2024 13.5 (H) 12/27/2015 10.2 APTT (sec) Date Value 10/22/2024 42.7 (H) 12/27/2015 29.1 Amphetamines Urine (no units) Date Value 10/20/2024 Negative Barbiturates Urine (no units) Date Value 10/20/2024 Negative Benzodiazepines Urine (no units) Date Value 10/20/2024 Negative Cocaine Urine (no units) Date Value 10/20/2024 Negative Opiates Urine (no units) Date Value 10/20/2024 Negative Oxycodone, Urine (no units) Date Value 10/20/2024 Negative Phencyclidine Urine (no units) Date Value 10/20/2024 Negative Cannabinoids, Urine (no units) Date Value 10/20/2024 Negative Ethanol, Urine (mg/dL) Date Value 10/20/2024 <11 TESTING [*Additional testing in italics] CXR: Date: 10/22/24 RESULT: Lines, tubes, and devices: IABP has been placed with tip about 1 cm distal to the arch. No other change. Lungs and pleura: Mixed changes of basilar atelectasis with mild worsening on the right and improvement in the left. Superimposed infiltrates/infection or edema cannot be entirely excluded. Right hemidiaphragm remains elevated. Cardiomediastinal silhouette: Stable cardiomediastinal silhouette. Other: Median sternotomy Impression: EKG: Date: 10/09/24 ICD: Echo: Date: 10/07/24 MEASUREMENTS: Value Indexed Normal LV ID (diastole) 7.0 cm (2D) 2.77 cm/m LV ID (systole) 6.5 cm (2D) 2.60 cm/m IVS, leaflet tips 0.9 cm (2D) Posterior wall thickness 0.6 cm (2D) Left ventricular mass 227 g (2D) 90 g/m Ejection Fraction 20 % (visual est.) EF > 52 FINDINGS: LEFT VENTRICLE The left ventricle is severely dilated. Left ventricular systolic function is severely decreased. Left ventricular diastolic function was not evaluated. Definity contrast used for endocardial border detection. Wall Motion: The posterior wall and basal inferior segment are akinetic. The entire anterior wall, anterolateral wall, entire septum, entire apex, and mid and distal inferior wall are severely hypokinetic. RIGHT VENTRICLE The right ventricle is dilated. Right ventricular systolic function is moderately decreased. Estimated right ventricular systolic pressure is 28 mmHg consistent with normal pulmonary artery pressures. Estimated right atrial pressure is 15 mmHg based on IVC assessment. LEFT ATRIUM The left atrial cavity is dilated. RIGHT ATRIUM Inferior Vena Cava: The inferior vena cava appears dilated measuring 3.1 cm. The vessel decreases less than 50 percent with inspiration. MITRAL VALVE There is mild mitral annular calcification observed posterior. There is moderate (2+) mitral valve regurgitation due to apical tethering of normal mitral leaflet caused by LV enlargement. There is mild thickening. The pressure half time is 19 msec. The mitral flow deceleration time is 66 msec. TRICUSPID VALVE There is moderate (2+ - 3+) tricuspid valve regurgitation caused by annular dilatation. There is no thickening. AORTIC VALVE S/P aortic valve repair. There is trace (trace - 1+) aortic valve regurgitation. Bicuspid aortic valve. There is moderate thickening. There is moderate calcification. The peak gradient is 19 mmHg (peak velocity = 220.6 cm/s). The mean gradient is 13 mmHg. The LVOT mean velocity is 34.0 cm/s. The aortic VTI is 41.5 cm. The mean velocity in the aortic valve is 167.2 cm/s. The dimensionless valve index is 0.24. PULMONIC VALVE There is mild (1+ - 2+) pulmonic valve regurgitation. PERICARDIUM There is a left pleural effusion. Impression CONCLUSIONS: - Technically difficult exam due to body habitus and suboptimal positioning. - Exam indication: Evaluation of known heart failure to guide therapy - The left ventricle is severely dilated. Left ventricular systolic function is severely decreased. EF = 20 5% (visual est.) Definity contrast used for endocardial border detection. - The right ventricle is dilated. Right ventricular systolic function is moderately decreased. - The left atrial cavity is dilated. - There is moderate (2+) mitral valve regurgitation due to apical tethering of normal mitral leaflet caused by LV enlargement. - There is moderate (2+ - 3+) tricuspid valve regurgitation caused by annular dilatation. - Bicuspid aortic valve. S/P aortic valve repair. There is trace (trace - 1+) aortic valve regurgitation. Likely mild aortic stenosis. The peak gradient is 19 mmHg, the mean gradient is 13 mmHg. Prior peak gradient of 25mmHg. - Exam was compared with the prior echocardiographic exam performed on 10/06/2024. No significant change. Metabolic Stress: NA RHC: Date: 10/21/24 Danese PVR: Date: 10/23/24 RIGHT SIDE Resting right ankle brachial index: 1.37 Normal ankle brachial index at rest in the right leg. Right ankle: Normal at rest. LEFT SIDE Resting left ankle brachial index: 1.35 Normal ankle brachial index at rest in the left leg. Left ankle: Normal at rest. Technologist: Surekha Marley T Ordering physician: CHARITY ESQUIVEL Carotid u/s: Date: 10/23/24 Please note: the new carotid interpretation criteria are used as recommended by [employer]. Irregular cardiac rhythm noted. Abnormal Doppler signal noted throughout may be due to balloon pump. Technically difficult exam due to bandages and lines. RIGHT SIDE Common carotid artery: Patent. Internal carotid artery: Normal study. Vertebral artery: Patent and antegrade flow noted. LEFT SIDE Common carotid artery: Patent. Internal carotid artery: Normal study. Vertebral artery: Patent and antegrade flow noted. Technologist: [place] T Ordering physician: CHARITY ESQUIVEL Interpreting physician: RENARD Purdy DO Abdominal u/s: Date: 10/23/24 IMPRESSION: CIRRHOTIC LIVER MORPHOLOGY. NO FOCAL HEPATIC LESION. SPLEEN IS TOP NORMAL IN SIZE. CHANGES INDICATIVE OF PRIOR SPLENIC INFARCT. MODERATE VOLUME ABDOMINAL ASCITES WITH ROB PLACED FOR POTENTIAL PARACENTESIS IN THE RIGHT LOWER QUADRANT. Liver Bx Component FINAL DIAGNOSIS A. Liver, transjugular biopsy: - Liver parenchyma with centrilobular hepatocyte dropout and irregular pattern of fibrosis, compatible with clinical cardiogenic hepatopathy (see comment). PFTs: 10/29/24 *6 Minute Walk N/A *CT Scan-chest: Date: 10/22/24 IMPRESSION: Incidental cardiovascular findings as detailed in the body of the report. Mild reactive thoracic lymphadenopathy. Small/moderate volume abdominal abdominal ascites. HEALTH MAINTENACE Dental Clearance: Date: 10/22/24 RECOMMENDATIONS: There is LOW risk of perioperative dental complications with this patient. Mr. Espinosa will follow up with local dentist upon recovery. The procedure including risks, benefits, options and personnel performing the procedure was discussed with the patient. Brenda Espinosa expressed understanding and agreed to proceed. The opinions rendered will be communicated back to the referring provider via shared electronic medical record. Claudine Hernandez, ROBIN This note is a draft until signed by attending. Pap Smear/ Pelvic Exam/ HPV: NA Mammogram: NA Colonoscopy/ Pathology: Has not had colonoscopy, report cologuard negative in 2023, repeat in 1 year. Bone Density Scan: Schedule once listed Rheumatology: Schedule once listed PSA: PSA (ng/mL) Date Value 10/21/2024 0.45 06/03/2020 0.83 11/24/2019 0.65 05/16/2019 0.88 02/13/2019 0.74 PSA, Percent Free (%) Date Value 10/21/2024 38 06/03/2020 28 11/24/2019 28 05/16/2019 28 02/13/2019 27 Ophthalmology: N/A Dermatology: Schedule once listed CONSULTS CTS/ MCS: 11/04/24 Juan placed impella VAD Education: N/A Bioethics: N/A Palliative Care: N/A Pulmonary: N/A Renal: Kid is following 11/13/24 PLAN: - continue CVVHD now on 3k and adjust [id number], UF 100cc/hr While patient is on CVVHD: - Check magnesium and phosphorus daily and replete as needed - Dose medications for eGFR 20 - 30 mL/min - Non renal feeds while on CRRT - Daily weights - Strict I/O's Consent for SHIPPING ORDER CLERK: in EMR Kwame Cisse PA-C Department of Kidney Medicine [facility] November 13, 2024 1:53 PM PAGER # [phone] Disclosures: Parts of the current progress note may have been copied from a previous note. FOR AFTER HOUR CONCERNS BETWEEN 5PM - 7AM CONTACT ON-CALL NEPHROLOGY FELLOW [phone] Hepatology: N/A Vascular: N/A Hematology/ Oncology: N/A documented in this encounter [facility] 10-21-2024 History of Presen t illness Narrative PATIENT EDUCATION NOTE: Informed consent for heart transplant evaluation process. TOPIC: Heart transplant evaluation, patient selection criteria, transplant education, informed consent, donor organs with risk criteria present consent, and most current SRTR data. Confirmed correct spelling of patient name, date of and social security number. Brenda Espinal Suresh 1975 [id number] READINESS TO LEARN COGNITIVE ABILITY: Alert and oriented MOTIVATION TO LEARN: Interested FAMILY SUPPORT: High - Very involved in pt care INSTRUCTION PROVIDED TO: Patient and Mother PATIENT LEARNS BEST BY: Individual Instruction Written Instruction - Hand-outs Verbal Instruction FACTORS AFFECTING LEARNING: None PHYSICAL LIMITATIONS AFFECTING LEARNING: None LEARNING RESPONSE DIAGNOSIS: Cardiac Transplant Evaluation PATIENT / FAMILY RESPONSE: Verbalizes understanding of heart transplant evaluation process. FOLLOW-UP PLAN: Pre transplant coordinators contact information given. EDUCATION TOPIC/ TEACHING POINTS: Informed consent for heart transplant evaluation process, members and roles of the multidisciplinary team, patient selection criteria, presentation to selection committee, transplant service coverage and plan to notify patients in the event that our program were to close, waitlist management and follow-up, the surgical procedure, post-operative treatment and post-transplant immunosuppression therapy, discharge planning, alternative treatment options, potential medical or psychosocial risks, potential, how to access the current SRTR report on the 1-year patient and graft survival, donor organs with risk criteria present offers, patient informed of the right to refuse transplant at any time through the process, discussion of UNOS multiple listing and waiting time transfer form. Transplants not performed in a Medicare-approved hospital may negatively affect payment for medication coverage by Medicare Part B. METHOD OF INSTRUCTION: Individual instruction using Teach Back Method PATIENT / FAMILY RESPONSE: Verbalizes understanding of evaluation process FOLLOW-UP PLAN: Reinforce - provide written education material SUPPLEMENTAL MATERIAL: Informed consent Version Heart Transplant Education material, UNOS and HRSA books given to patient, given patient UNOS pamphlet entitled Questions and answers for Transplant Candidate about multiple listing and waiting time transfer" The patient has received informed consent Version education material and I personally obtained consent to proceed with the heart transplant evaluation process. Patient instructed on organ allocation, transplant process and roles of multidisciplinary team members. I spoke with patient in detail regarding Notice of Potential Noncoverage (NPN) flight consent, their options and the need to update consent annually while on the waitlist or with any insurance change. They understood that balance of flight not covered by insurance would be their responsibility. Consent for research for Human Heart Tissue (HHT) obtained/discussed. IRB form # 2378 reviewed, discussed and signed. Patient directed to [email or web address] website for a copy of the research study and original provided to Dr. Bhatia per protocol. Education/Consents obtained: 1.) Heart transplant evaluation informed consent (Version ) 2) Transplantation of Hepatitis -C Viremic Organs in to Hepatitis C Negative Recipients 3.) Notice of Potential Noncoverage (NPN) Flight Consent: October 21, 2024 Option # 2 4.) Human Heart Tissue (HHT) Research Consent:October 21, 2024 *Patient Heart Transplant Selection Criterion given to patient/family. Reviewed health maintenance and immunizations with patient. The patient was provided opportunity to ask questions. Contact information given if any follow up questions arise. Ermelinda Mace RN, BSN Pre-Heart [place] Pager [phone] documented in this encounter [facility] 10-05-2024 Note [facility] 10-04-2024 Note [facility] 10-04-2024 Note [facility] 10-03-2024 Note [facility] 10-03-2024 Note [facility] 10-02-2024 Note [facility] 10-01-2024 Note SARS-COV-2 (AGENT OF COVID-19) RNA: Not detected INFLUENZA A RNA: Not detected INFLUENZA B RNA: Not detected RESPIRATORY SYNCYTIAL VIRUS (RSV) RNA: Not detected [facility] Comment on above: Performed By: #### [id number] ####[facility] [id number] [address] 09-26-2024 Note [facility] 09-25-2024 Note [facility] 09-24-2024 Note [facility] 09-23-2024 Note [facility] 09-23-2024 Note [facility] 09-22-2024 Note [facility] 09-22-2024 Note SARS-COV-2 (AGENT OF COVID-19) RNA: Not detected INFLUENZA A RNA: Not detected INFLUENZA B RNA: Not detected RESPIRATORY SYNCYTIAL VIRUS (RSV) RNA: Not detected [facility] Comment on above: Performed By: #### 9 [id number] ####[facility] [id number] [address] 12-17-2023 History of Presen t illness Narrative AMBULATORY PATIENT EDUCATION RADIOLOGY TOPIC: Pre- Procedure Teaching:Logistics / Protocols / Complication Prevention Post- Procedure Teaching: Symptom Management / Wound Care READINESS TO LEARN COGNITIVE ABILITY: Alert and oriented MOTIVATION TO LEARN: Interested FAMILY SUPPORT: None - Unavailable/disinterested INSTRUCTION PROVIDED TO: Patient PATIENT LEARNS BEST BY: Individual Instruction Verbal Instruction FACTORS AFFECTING LEARNING: None PHYSICAL LIMITATIONS AFFECTING LEARNING: None LEARNING RESPONSE Procedure: Angio Procedures Radiology Procedures MRI w/ conditional pacemaker METHOD OF INSTRUCTION: Individual instruction Verbal instruction PATIENT / FAMILY RESPONSE: Verbalizes understanding of: Pre Procedure Instructions Post Procedure Instructions FOLLOW-UP PLAN: Complete - No need for follow-up SUPPLEMENTAL MATERIAL: n/a REFERRAL (RECOMMENDATION): None Electronically Signed By Mariaelena Triana RN In Department: MRI Q documented in this encounter [facility] 12-17-2023 History of Presen t illness Narrative Radiology Service Progress Note DATE OF SERVICE: December 17, 2023 TIME: 9:54 AM PATIENT WEIGHT: 275LBS PATIENT IDENTITY VERIFICATION COMPLETED USING TWO (2) STANDARD IDENTIFIERS: Name and Date of confirmed by patient verbally and Name and Date of confirmed by identification band. FALL SCREENING: Has the patient had 2 falls in the last year or 1 fall with injury or currently using an Ambulatory Assistive Device (Walker, Cane, Wheelchair, Crutches, etc.)? No PATIENT GENDER DATA: Male ALLERGIES: Reviewed and unchanged CONTRAST ALLERGY: No EXAM: MRI - CONTRAST TYPE: GROUP II IV SITE: Ambulatory: A peripheral IV was started in the Right antecubital site with a Angio cath: 20 gauge. and A Saline lock was inserted per protocol IV SITE APPEARANCE: Clean,Dry and Intact SIGNATURE: Edyta Grimes RN PATIENT NAME: Brenda Espinosa DATE: December 17, 2023 TIME: 9:54 AM Radiology Service Progress Note PATIENT NAME: Brenda Espinosa DATE OF SERVICE: December 17, 2023 TIME: 10:10 AM PATIENT IDENTITY VERIFICATION COMPLETED USING TWO (2) STANDARD IDENTIFIERS: Name and Date of confirmed by patient verbally and Name and Date of confirmed by identification band. PATIENT GENDER DATA: Male PATIENT RELEVANT IMPLANT DATA REVIEWED: Yes ALLERGIES: Reviewed and unchanged MEDICATIONS REVIEWED: YES PROCEDURE: MRI - Conditional Pacemaker- SICD. settings changed to MRI safe mode OFF for the MRI by RT Tia via [employer] device. Patient was monitored during scan without incident. See [facility] for vital sign documentation. IV SITE: Ambulatory: A peripheral IV was started in the Right antecubital site with a Angio cath: 20 gauge. PERIPHERAL IV ACCESS: Discontinued PATIENT TOLERATED PROCEDURE: Without incident. PATIENT DISCHARGED TO: Home/Self Care SIGNED BY: Mariaelena Triana RN December 17, 2023 10:10 AM Radiology Service Progress Note PATIENT NAME: Brenda Espinosa DATE OF SERVICE: December 17, 2023 TIME: 11:23 AM PATIENT IDENTITY VERIFICATION COMPLETED USING TWO (2) IDENTIFIERS: Name and Date of confirmed by identification band and Name and Date of obtained from a relative, guardian or prior caregiver.. FALL SCREENING: Has the patient had 2 falls in the last year or 1 fall with injury or currently using an Ambulatory Assistive Device (Walker, Cane, Wheelchair, Crutches, etc.)? No PATIENT GENDER DATA: Male PATIENT RELEVANT IMPLANT DATA REVIEWED: Yes PATIENT PRESENTS WITH AN IMPLANTABLE OR ATTACHED CONTROL ROOM OPERATOR: No pt has a s icd [employer] device RADIOLOGY DEPARTMENT: MR; Exam(s) Completed: Cardiac: Cardiac PERIPHERAL IV DATA: Site assessment: Clean,Dry and Intact, Site disposition Discontinued SIGNED BY: RT Lyla(R) December 17, 2023 11:23 AM documented in this encounter [facility] 07-27-2022 History of Presen t illness Narrative Patient is a 46-year-old male with a chief complaint of laceration to the left index finger. Patient reports the laceration occurred at 1400 yesterday. Patient states his tetanus was updated last in January 2020. Patient denies any fevers or chills. Patient denies any numbness, weakness or tingling. Patient denies any coughs, wheezing, chest pain or shortness of breath. Patient states he has done well with bandaging his finger. Patient denies any [id number] medications. -[facility] Work Phone: 01-14-2021 Note HNO ID: [id number] Author: Melvi ([employer] Davin Henriquez Service: Radiology Author Type: Tram Inspector Type: Progress Notes Filed: 01/14/2021 4:51 PM Note Text: Radiology Service Progress Note PATIENT NAME: Brenda Espinosa DATE OF SERVICE: January 14, 2021 TIME: 4:50 PM PATIENT IDENTITY VERIFICATION COMPLETED USING TWO (2) IDENTIFIERS: Name and Date of confirmed by patient verbally and Name and Date of confirmed by identification band. FALL SCREENING: Has the patient had 2 falls in the last year or 1 fall with injury or currently using an Ambulatory Assistive Device (Walker, Cane, Wheelchair, Crutches, etc.)? No PATIENT GENDER DATA: Male PATIENT RELEVANT IMPLANT DATA REVIEWED: Yes RADIOLOGY DEPARTMENT: MR; Exam(s) Completed: Cardiac: Cardiac PERIPHERAL IV DATA: Not applicable SIGNED BY: Melvi Henriquez PROFESSOR OF ECONOMICS January 14, 2021 4:50 PM [facility] 07-31-2016 History of Past i llness Narrative Problem Noted Date Diagnosed Date Resolved Date Snoring 07/31/2016 01/23/2020 Chest pain 07/25/2016 11/30/2017 Elevated troponin 07/25/2016 11/30/2017 Pericardial effusion (noninflammatory) 01/07/2016 11/30/2017 SUMMARY 11/12/2015 11/30/2017 Overview: Indication for hospital admission/procedure: AR LVEF: Normal RVF: Normal Important/Relevant PMH/PSH: BAV Preoperative Hospital Course: This is a 40 year old male who presents in consultation for an opinion regarding treatment options for aortic regurgitation. He is currently symptomatic and complains of palpitations, lightheadedness, chest pressure. Procedure/Surgeries: 11/10/2015 AV Repair Airway Difficulty: Grade I OR Course: Uncomplicated Pacing wires: CUT Postoperative Course/General Impression: (): S/p AV repair. Uncomplicated OR course. Required NTG infusion. Plan -POD 2 11/12 AV- echo-no AI-small pericardial effusion Htn- stable Pain-orals /lido FVO-IV lasix from [facility] -requested f/u dc Sunday or Sunday Atelectasis 11/11/2015 11/30/2017 Overview: A/p-cxr with review today - mild bibasilar atelectasis; stable oxygenation on RA : pep, cdb, oob. Volume overload 11/11/2015 11/30/2017 Overview: A/p - mild overload from OHS; gentle IV diuresis for goal negative fluid balance. orals at dc On mechanically assisted ventilation 11/10/2015 11/11/2015 Overview: Arrived on full vent support. Grade I view WTE once hemodynamically stable Pain, postoperative, acute 11/10/2015 0 11/30/2017 Overview: Postop; incisional A/p - well controlled - cont tylenol, toradol, and lidoderm patch. Encourage oxy IR for BTP; Supplement as needed for goal pain level less than 4. Intravascular volume depletion 11/10/2015 11/11/2015 Overview: Normal biventricular fxn IVF as needed for hemodynamic stability Pre-op testing 11/01/2015 11/11/2015 Overview: Images from the original note were not included. [facility] Surgeon: Bryson Moon M.D. Informed Consent Completed: Yes STS Score: 0.425% CAD: No Is intended procedure a CABG: No - is a beta manuel ordered? No - reason: continue metoprolol H & P completed: Yes PA/LAT: Completed CT: N/A MRI: N/A LE US: N/A Cath: Yes - reviewed: Yes Echo:Completed EKG: Completed EF %: 55 PI's: N/A Carotid: N/A Mapping: N/A Dental: Completed PFT's: N/A CBC, Coags, BMP, Mg, Phos Recent Labs 11/01/15 1142 WBC 5.47 HB 15.2 HCT 43.1 PLT 175 INR 1.0 APTT 29.2 NA 144 K 4.2 CHLOR 103 CO2 24 BUN 20 CREAT 1.30 GLUC 92 CA 9.8 UA: Negative HCG:N/A ABO/ABO Confirmed: yes Blood ordered: No SA Swab: Yes - results: Positive SA Last Dose of Anticoagulation: Aspirin and OTC 11/04/15 Op Note: N/A Pacemaker Check: N/A Consults: None DM: No Cardiac Surgical prep: N/A SIGNATURE: LUDA Kelly CHECKED BY: tej DATE of SERVICE: 11/01/2015 TIME of SERVICE: 1:10 PM Discharge planning issues 11/01/2015 Overview: No discharge needs anticipated. Patient lives in [place], [place]- have requested f/u appointments Bicuspid aortic valve 2015 documented as of this encounter (statuses as of 12/17/2023) [facility] History of Past illness Narrative* Problem Noted Date Diagnosed Date Resolved Date Snoring 07/31/2016 01/23/2020 Chest pain 07/25/2016 11/30/2017 Elevated troponin 07/25/2016 11/30/2017 Pericardial effusion (noninflammatory) 01/07/2016 11/30/2017 SUMMARY 11/12/2015 11/30/2017 Overview: Indication for hospital admission/procedure: AR LVEF: Normal RVF: Normal Important/Relevant PMH/PSH: BAV Preoperative Hospital Course: This is a 40 year old male who presents in consultation for an opinion regarding treatment options for aortic regurgitation. He is currently symptomatic and complains of palpitations, lightheadedness, chest pressure. Procedure/Surgeries: 11/10/2015 AV Repair Airway Difficulty: Grade I OR Course: Uncomplicated Pacing wires: CUT Postoperative Course/General Impression: (): S/p AV repair. Uncomplicated OR course. Required NTG infusion. Plan -POD 2 11/12 AV- echo-no AI-small pericardial effusion Htn- stable Pain-orals /lido FVO-IV lasix from [facility] -requested f/u dc Sunday or Sunday Atelectasis 11/11/2015 11/30/2017 Overview: A/p-cxr with review today - mild bibasilar atelectasis; stable oxygenation on RA : pep, cdb, oob. Volume overload 11/11/2015 11/30/2017 Overview: A/p - mild overload from OHS; gentle IV diuresis for goal negative fluid balance. orals at dc On mechanically assisted ventilation 11/10/2015 11/11/2015 Overview: Arrived on full vent support. Grade I view WTE once hemodynamically stable Pain, postoperative, acute 11/10/2015 0 11/30/2017 Overview: Postop; incisional A/p - well controlled - cont tylenol, toradol, and lidoderm patch. Encourage oxy IR for BTP; Supplement as needed for goal pain level less than 4. Intravascular volume depletion 11/10/2015 11/11/2015 Overview: Normal biventricular fxn IVF as needed for hemodynamic stability Pre-op testing 11/01/2015 11/11/2015 Overview: Images from the original note were not included. [facility] Surgeon: Bryson Moon M.D. Informed Consent Completed: Yes STS Score: 0.425% CAD: No Is intended procedure a CABG: No - is a beta manuel ordered? No - reason: continue metoprolol H & P completed: Yes PA/LAT: Completed CT: N/A MRI: N/A LE US: N/A Cath: Yes - reviewed: Yes Echo:Completed EKG: Completed EF %: 55 PI's: N/A Carotid: N/A Mapping: N/A Dental: Completed PFT's: N/A CBC, Coags, BMP, Mg, Phos Recent Labs 11/01/15 1142 WBC 5.47 HB 15.2 HCT 43.1 PLT 175 INR 1.0 APTT 29.2 NA 144 K 4.2 CHLOR 103 CO2 24 BUN 20 CREAT 1.30 GLUC 92 CA 9.8 UA: Negative HCG:N/A ABO/ABO Confirmed: yes Blood ordered: No SA Swab: Yes - results: Positive SA Last Dose of Anticoagulation: Aspirin and OTC 11/04/15 Op Note: N/A Pacemaker Check: N/A Consults: None DM: No Cardiac Surgical prep: N/A SIGNATURE: LUAD Kelly CHECKED BY: tej DATE of SERVICE: 11/01/2015 TIME of SERVICE: 1:10 PM Discharge planning issues 11/01/2015 Overview: No discharge needs anticipated. Patient lives in [place], [place]- have requested f/u appointments Bicuspid aortic valve 2015 documented as of this encounter (statuses as of 12/17/2023) [facility] History of Past illness Narrative* Problem Noted Date Diagnosed Date Resolved Date Snoring 07/31/2016 01/23/2020 Chest pain 07/25/2016 11/30/2017 Elevated troponin 07/25/2016 11/30/2017 Pericardial effusion (noninflammatory) 01/07/2016 11/30/2017 SUMMARY 11/12/2015 11/30/2017 Overview: Indication for hospital admission/procedure: AR LVEF: Normal RVF: Normal Important/Relevant PMH/PSH: BAV Preoperative Hospital Course: This is a 40 year old male who presents in consultation for an opinion regarding treatment options for aortic regurgitation. He is currently symptomatic and complains of palpitations, lightheadedness, chest pressure. Procedure/Surgeries: 11/10/2015 AV Repair Airway Difficulty: Grade I OR Course: Uncomplicated Pacing wires: CUT Postoperative Course/General Impression: (): S/p AV repair. Uncomplicated OR course. Required NTG infusion. Plan -POD 2 11/12 AV- echo-no AI-small pericardial effusion Htn- stable Pain-orals /lido FVO-IV lasix from [facility] -requested f/u dc Sunday or Sunday Atelectasis 11/11/2015 11/30/2017 Overview: A/p-cxr with review today - mild bibasilar atelectasis; stable oxygenation on RA : pep, cdb, oob. Volume overload 11/11/2015 11/30/2017 Overview: A/p - mild overload from OHS; gentle IV diuresis for goal negative fluid balance. orals at dc On mechanically assisted ventilation 11/10/2015 11/11/2015 Overview: Arrived on full vent support. Grade I view WTE once hemodynamically stable Pain, postoperative, acute 11/10/2015 0 11/30/2017 Overview: Postop; incisional A/p - well controlled - cont tylenol, toradol, and lidoderm patch. Encourage oxy IR for BTP; Supplement as needed for goal pain level less than 4. Intravascular volume depletion 11/10/2015 11/11/2015 Overview: Normal biventricular fxn IVF as needed for hemodynamic stability Pre-op testing 11/01/2015 11/11/2015 Overview: Images from the original note were not included. [facility] Surgeon: Bryson Moon M.D. Informed Consent Completed: Yes STS Score: 0.425% CAD: No Is intended procedure a CABG: No - is a beta manuel ordered? No - reason: continue metoprolol H & P completed: Yes PA/LAT: Completed CT: N/A MRI: N/A LE US: N/A Cath: Yes - reviewed: Yes Echo:Completed EKG: Completed EF %: 55 PI's: N/A Carotid: N/A Mapping: N/A Dental: Completed PFT's: N/A CBC, Coags, BMP, Mg, Phos Recent Labs 11/01/15 1142 WBC 5.47 HB 15.2 HCT 43.1 PLT 175 INR 1.0 APTT 29.2 NA 144 K 4.2 CHLOR 103 CO2 24 BUN 20 CREAT 1.30 GLUC 92 CA 9.8 UA: Negative HCG:N/A ABO/ABO Confirmed: yes Blood ordered: No SA Swab: Yes - results: Positive SA Last Dose of Anticoagulation: Aspirin and OTC 11/04/15 Op Note: N/A Pacemaker Check: N/A Consults: None DM: No Cardiac Surgical prep: N/A SIGNATURE: Josephine Puga [employer] CHECKED BY: tej DATE of SERVICE: 11/01/2015 TIME of SERVICE: 1:10 PM Discharge planning issues 11/01/2015 Overview: No discharge needs anticipated. Patient lives in [place], [place]- have requested f/u appointments Bicuspid aortic valve 2015 documented as of this encounter (statuses as of 12/18/2023) [facility] History of Past illness Narrative* Problem Noted Date Diagnosed Date Resolved Date Snoring 07/31/2016 01/23/2020 Chest pain 07/25/2016 11/30/2017 Elevated troponin 07/25/2016 11/30/2017 Pericardial effusion (noninflammatory) 01/07/2016 11/30/2017 SUMMARY 11/12/2015 11/30/2017 Overview: Indication for hospital admission/procedure: AR LVEF: Normal RVF: Normal Important/Relevant PMH/PSH: BAV Preoperative Hospital Course: This is a 40 year old male who presents in consultation for an opinion regarding treatment options for aortic regurgitation. He is currently symptomatic and complains of palpitations, lightheadedness, chest pressure. Procedure/Surgeries: 11/10/2015 AV Repair Airway Difficulty: Grade I OR Course: Uncomplicated Pacing wires: CUT Postoperative Course/General Impression: (): S/p AV repair. Uncomplicated OR course. Required NTG infusion. Plan -POD 2 11/12 AV- echo-no AI-small pericardial effusion Htn- stable Pain-orals /lido FVO-IV lasix from [facility] -requested f/u dc Sunday or Sunday Atelectasis 11/11/2015 11/30/2017 Overview: A/p-cxr with review today - mild bibasilar atelectasis; stable oxygenation on RA : pep, cdb, oob. Volume overload 11/11/2015 11/30/2017 Overview: A/p - mild overload from OHS; gentle IV diuresis for goal negative fluid balance. orals at dc On mechanically assisted ventilation 11/10/2015 11/11/2015 Overview: Arrived on full vent support. Grade I view WTE once hemodynamically stable Pain, postoperative, acute 11/10/2015 0 11/30/2017 Overview: Postop; incisional A/p - well controlled - cont tylenol, toradol, and lidoderm patch. Encourage oxy IR for BTP; Supplement as needed for goal pain level less than 4. Intravascular volume depletion 11/10/2015 11/11/2015 Overview: Normal biventricular fxn IVF as needed for hemodynamic stability Pre-op testing 11/01/2015 11/11/2015 Overview: Images from the original note were not included. [facility] Surgeon: Bryson Moon M.D. Informed Consent Completed: Yes STS Score: 0.425% CAD: No Is intended procedure a CABG: No - is a beta manuel ordered? No - reason: continue metoprolol H & P completed: Yes PA/LAT: Completed CT: N/A MRI: N/A LE US: N/A Cath: Yes - reviewed: Yes Echo:Completed EKG: Completed EF %: 55 PI's: N/A Carotid: N/A Mapping: N/A Dental: Completed PFT's: N/A CBC, Coags, BMP, Mg, Phos Recent Labs 11/01/15 1142 WBC 5.47 HB 15.2 HCT 43.1 PLT 175 INR 1.0 APTT 29.2 NA 144 K 4.2 CHLOR 103 CO2 24 BUN 20 CREAT 1.30 GLUC 92 CA 9.8 UA: Negative HCG:N/A ABO/ABO Confirmed: yes Blood ordered: No SA Swab: Yes - results: Positive SA Last Dose of Anticoagulation: Aspirin and OTC 11/04/15 Op Note: N/A Pacemaker Check: N/A Consults: None DM: No Cardiac Surgical prep: N/A SIGNATURE: LUDA Kelly CHECKED BY: tej DATE of SERVICE: 11/01/2015 TIME of SERVICE: 1:10 PM Discharge planning issues 11/01/2015 Overview: No discharge needs anticipated. Patient lives in [place], [place]- have requested f/u appointments Bicuspid aortic valve 2015 documented as of this encounter (statuses as of 01/04/2024) [facility] Diagnosis Encounter for pre-transplant evaluation for heart transplant- Primary Other specified pre-operative examination [facility] Diagnosis Stage 3 chronic kidney disease, unspecified whether stage 3a or 3b CKD (HCC)- Primary Dilated cardiomyopathy (HCC) Other primary cardiomyopathies [facility] Diagnosis Encounter for pre-transplant evaluation for heart transplant- Primary Other specified pre-operative examination Preoperative clearance Preoperative examination, unspecified Longstanding persistent atrial fibrillation (HCC) 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) Acute on chronic combined systolic and diastolic heart failure [facility] Diagnosis 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)- Primary Acute on chronic combined systolic and diastolic heart failure LVAD (left ventricular assist device) present (HCC) Other specified cardiac device in situ [facility] Diagnosis Other cardiomyopathy (HCC)- Primary [facility] Diagnosis NO SHOW- Primary documented in this encounter [facility] note* Diagnosis Screening for genitourinary condition Screening for other and unspecified genitourinary condition documented in this encounter [facility] note* Diagnosis Congestive heart failure, unspecified HF chronicity, unspecified heart failure type (HCC)- Primary documented in this encounter [facility] note* Diagnosis Chronic heart failure, unspecified heart failure type (HCC)- Primary documented in this encounter [facility] note* Diagnosis Congestive heart failure, unspecified HF chronicity, unspecified heart failure type (HCC)- Primary documented in this encounter [facility] note* Diagnosis Chronic heart failure, unspecified heart failure type (HCC)- Primary documented in this encounter [facility] note* Diagnosis Congestive heart failure, unspecified HF chronicity, unspecified heart failure type (HCC)- Primary documented in this encounter [facility] note* Diagnosis Congestive heart failure, unspecified HF chronicity, unspecified heart failure type (HCC)- Primary documented in this encounter [facility] note* Diagnosis Congestive heart failure, unspecified HF chronicity, unspecified heart failure type (HCC)- Primary documented in this encounter [facility] note* Diagnosis Chronic systolic heart failure (HCC)- Primary Chronic systolic heart failure documented in this encounter [facility]* Name Dates Details Instructions not documented [facility] Work Phone: reason for visit Narrative* Auth/Cert (Routine) Specialty Diagnoses / Procedures Referred By Maricruz lloyd Referred To Contact [facility] INPATIENT Diagnoses Cardiogenic shock (HCC) Procedures eval and treat [id number] [address] [place] [id number] Phone: tel: Referral ID Status Reason Start Date Expiration Date Visits Re quested Visits Authorized [id number] 1 1 [facility] for visit Narrative* Auth/Cert (Routine) Specialty Diagnoses / Procedures Referred By Maricruz t Referred To Contact CARDIAC/PULMONARY REHAB Diagnoses na Procedures na [facility] [address] [address] Phone: tel: fax: Referral ID Status Reason Start Date Expiration Date Visits Re quested Visits Authorized [id number] 1 [facility] Summary Purpose Family History No Family History Records Found Grandparent Name Dates Details Family history of CAD (coron elijah artery disease), [place] coronary artery(414.01, I25.10) Status:Active Mother Name Dates Details Family history of diabetes m ellitus(V18.0, Z83.3) Status:Active Father Name Dates Details Family history of CAD (coron elijah artery disease), [place] coronary artery(414.01, I25.10) Status:Active Unknown Family Member Name Dates Details CAD (coronary artery disease ), [place] coronary artery: Father, Grandparent Status:Active Family history of diabetes m ellitus: Mother(V18.0, Z83.3) Status:Active Advance Directives No Advanced Directives Records FoundDocuments on File Type Date Recorded 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 Advance Directive(s) 11/01/2015 4:19 PM Date Activated Date Inactivated Comments 09/22/2024 5:44 AM 09/26/2024 7:31 PM Question Answer Comments Full Code Order Discussed With: Patient Date Activated Date Inactivated Comments 10/07/2024 6:28 AM Date Activated Date Inactivated Comments 10/01/2024 10:27 PM 10/05/2024 2:19 PM Question Answer Comments Full Code Order Discussed With: Patient Date Activated Date Inactivated Comments 09/22/2024 5:44 AM 09/26/2024 7:31 PM Question Answer Comments Full Code Order Discussed With: Patient Documents on File Type Date Recorded 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 Advance Directive(s) 11/01/2015 4:19 PM Date Activated Date Inactivated Comments 10/07/2024 6:28 AM Question Answer Comments Full Code Order Discussed With: Patient Date Activated Date Inactivated Comments 10/01/2024 10:27 PM 10/05/2024 2:19 PM Question Answer Comments Full Code Order Discussed With: Patient Date Activated Date Inactivated Comments 09/22/2024 5:44 AM 09/26/2024 7:31 PM Question Answer Comments Full Code Order Discussed With: Patient Date Activated Date Inactivated Comments 10/22/2024 9:01 PM Question Answer Comments DNR Order Discussed With: Surrogate Decision Venu er Surrogate Decision Maker Name: Carmel Moreno Surrogate Decision Maker Phone: [phone] Surrogate Decision Maker Relationship: Health Care Power of Can Labeler AgentMajority of Adult Children (insurance representative) Date Activated Date Inactivated Comments 10/07/2024 6:28 AM 10/22/2024 9:01 PM Date Activated Date Inactivated Comments 10/01/2024 10:27 PM 10/05/2024 2:19 PM Date Activated Date Inactivated Comments 09/22/2024 5:44 AM 09/26/2024 7:31 PM Question Answer Comments Full Code Order Discussed With: Patient Date Activated Date Inactivated Comments 10/24/2024 11:29 AM Date Activated Date Inactivated Comments 10/22/2024 9:01 PM 10/24/2024 11:28 AM Question Answer Comments DNR Order Discussed With: Surrogate Decision Venu er Surrogate Decision Maker Name: Carmel Moreno Surrogate Decision Maker Phone: [phone] Surrogate Decision Maker Relationship: Health Care Power of Can Labeler AgentMajority of Adult Children (insurance representative) Date Activated Date Inactivated Comments 10/07/2024 6:28 AM 10/22/2024 9:01 PM Date Activated Date Inactivated Comments 10/01/2024 10:27 PM 10/05/2024 2:19 PM Question Answer Comments Full Code Order Discussed With: Patient Date Activated Date Inactivated Comments 09/22/2024 5:44 AM 09/26/2024 7:31 PM Question Answer Comments Full Code Order Discussed With: Patient Date Activated Date Inactivated Comments 10/24/2024 11:29 AM Date Activated Date Inactivated Comments 10/22/2024 9:01 PM 10/24/2024 11:28 AM Question Answer Comments DNR Order Discussed With: Surrogate Decision Venu er Surrogate Decision Maker Name: Carmel Moreno Surrogate Decision Maker Phone: [phone] Surrogate Decision Maker Relationship: Health Care Power of Can Labeler AgentMajority of Adult Children (insurance representative) Date Activated Date Inactivated Comments 10/07/2024 6:28 AM 10/22/2024 9:01 PM Date Activated Date Inactivated Comments 10/01/2024 10:27 PM 10/05/2024 2:19 PM Date Activated Date Inactivated Comments 09/22/2024 5:44 AM 09/26/2024 7:31 PM Question Answer Comments Full Code Order Discussed With: Patient Date Activated Date Inactivated Comments 10/24/2024 11:29 AM 01/20/2025 3:48 PM Date Activated Date Inactivated Comments 10/24/2024 11:29 AM 01/20/2025 3:48 PM Reason for Referral Specialty Diagnoses / Procedures Referred By Contac t Referred To Contact TRANSPLANT Diagnoses Stage 3 chronic kidney disease, unspecified whether stage 3a or 3b CKD (HCC) Dilated cardiomyopathy (HCC) Procedures CONSULT TO [facility] OFFICE/OUTPATIENT NEW HIGH MDM 60 MINUTES ENDOMYOCARDIAL BIOPSY R & L HRT CATH WINJX HRT ART& L VENTR IMG L HRT CATH W/NJX L VENTRICULOGRAPHY IMG S&I ECG ROUTINE ECG W/LEAST 12 LDS I&R ONLY RADIOLOGIC EXAM CHEST 4+ VIEWS ECHO TTHRC R-T 2D W/WO M-MODE COMPLETE REST&ST ECHO TTHRC R-T 2D W/WOM-MODE COMPL SPEC&COLR D CV STRS TST XERS&/OR RX CONT ECG I&R ONLY SPMTRY W/VC EXPIRATORY ROSALVA W/WO MXML VOL VNTJ BLOOD GASES ANY COMBINATION PH PCO2 PO2 CO2 HCO3 LUNG DIFFERENTIAL FUNCTION DIFFUSING CAPACITY MEDICAL NUTRITION THERAPY GRP2/ INDIV EA 30 AR DUPLEX SCAN EXTRACRANIAL ART COMPL BI STUDY NON-INVASIVE PHYSIOLOGIC STUDY EXTREMITY 3 LEVLS US ABDOMEN COMPLETE COLLECTION VENOUS BLOOD VENIPUNCTURE DIAGNOSTIC COMPUTED TOMOGRAPHY THORAX W/O CNTRST DXA BONE DENSITY STUDY 1/> SITES AXIAL Goldie Verdugo MD [address] [place] [address] [facility] [address] [place] [address] Referral ID Status Reason Start Date Expiration Date Visits Requested Visits Authorized [id number] Pending Review Financial Clearance Required - [employer]ON Payor 10/21/2024 10/21/2025 99 99 Additional Source Comments (unrecognized sect ion and content) No Status Records FoundNo Status Records FoundNo Status Records FoundNo Status Records FoundNo Status Records Found INFORMATION SOURCE (unrecogn ized section and content) DATE CREATED AUTHOR 01/17/2021 [facility] DATE CREATED AUTHOR AUTHOR'S ORGANIZ ATION 07/29/2022 [facility] DATE CREATED AUTHOR AUTHOR'S ORGANIZ ATION 07/29/2022 [employer] DATE CREATED AUTHOR AUTHOR'S ORGANIZ ATION 06/13/2025 [facility] DATE CREATED AUTHOR AUTHOR'S ORGANIZ ATION 06/16/2025 [facility] Source Comments (unrecognize d section and content) In the event this informatio n is protected by the Federal Confidentiality of Alcohol and Drug Abuse Patient Records regulations: The Federal rules restrict any use of the information to criminally investigate or prosecute any alcohol or drug abuse patient.[facility] the event this information is protected by the Federal Confidentiality of Alcohol and Drug Abuse Patient Records regulations: The Federal rules restrict any use of the information to criminally investigate or prosecute any alcohol or drug abuse patient.[facility] the event this information is protected by the Federal Confidentiality of Alcohol and Drug Abuse Patient Records regulations: The Federal rules restrict any use of the information to criminally investigate or prosecute any alcohol or drug abuse patient.[facility] the event this information is protected by the Federal Confidentiality of Alcohol and Drug Abuse Patient Records regulations: The Federal rules restrict any use of the information to criminally investigate or prosecute any alcohol or drug abuse patient.[facility] the event this information is protected by the Federal Confidentiality of Alcohol and Drug Abuse Patient Records regulations: The Federal rules restrict any use of the information to criminally investigate or prosecute any alcohol or drug abuse patient.[facility] the event this information is protected by the Federal Confidentiality of Alcohol and Drug Abuse Patient Records regulations: The Federal rules restrict any use of the information to criminally investigate or prosecute any alcohol or drug abuse patient.[facility] the event this information is protected by the Federal Confidentiality of Alcohol and Drug Abuse Patient Records regulations: The Federal rules restrict any use of the information to criminally investigate or prosecute any alcohol or drug abuse patient.[facility] the event this information is protected by the Federal Confidentiality of Alcohol and Drug Abuse Patient Records regulations: The Federal rules restrict any use of the information to criminally investigate or prosecute any alcohol or drug abuse patient.[facility] the event this information is protected by the Federal Confidentiality of Alcohol and Drug Abuse Patient Records regulations: The Federal rules restrict any use of the information to criminally investigate or prosecute any alcohol or drug abuse patient.[facility] CenterIn the event this information is protected by the Federal Confidentiality of Alcohol and Drug Abuse Patient Records regulations: The Federal rules restrict any use of the information to criminally investigate or prosecute any alcohol or drug abuse patient.[facility] CenterIn the event this information is protected by the Federal Confidentiality of Alcohol and Drug Abuse Patient Records regulations: The Federal rules restrict any use of the information to criminally investigate or prosecute any alcohol or drug abuse patient.[facility] CenterIn the event this information is protected by the Federal Confidentiality of Alcohol and Drug Abuse Patient Records regulations: The Federal rules restrict any use of the information to criminally investigate or prosecute any alcohol or drug abuse patient.[facility] the event this information is protected by the Federal Confidentiality of Alcohol and Drug Abuse Patient Records regulations: The Federal rules restrict any use of the information to criminally investigate or prosecute any alcohol or drug abuse patient.[facility] CenterIn the event this information is protected by the Federal Confidentiality of Alcohol and Drug Abuse Patient Records regulations: The Federal rules restrict any use of the information to criminally investigate or prosecute any alcohol or drug abuse patient.[facility] CenterIn the event this information is protected by the Federal Confidentiality of Alcohol and Drug Abuse Patient Records regulations: The Federal rules restrict any use of the information to criminally investigate or prosecute any alcohol or drug abuse patient.[facility] CenterIn the event this information is protected by the Federal Confidentiality of Alcohol and Drug Abuse Patient Records regulations: The Federal rules restrict any use of the information to criminally investigate or prosecute any alcohol or drug abuse patient.[facility] CenterIn the event this information is protected by the Federal Confidentiality of Alcohol and Drug Abuse Patient Records regulations: The Federal rules restrict any use of the information to criminally investigate or prosecute any alcohol or drug abuse patient.[facility] CenterIn the event this information is protected by the Federal Confidentiality of Alcohol and Drug Abuse Patient Records regulations: The Federal rules restrict any use of the information to criminally investigate or prosecute any alcohol or drug abuse patient.[facility] CenterIn the event this information is protected by the Federal Confidentiality of Alcohol and Drug Abuse Patient Records regulations: The Federal rules restrict any use of the information to criminally investigate or prosecute any alcohol or drug abuse patient.[facility] CenterIn the event this information is protected by the Federal Confidentiality of Alcohol and Drug Abuse Patient Records regulations: The Federal rules restrict any use of the information to criminally investigate or prosecute any alcohol or drug abuse patient.[facility] CenterIn the event this information is protected by the Federal Confidentiality of Alcohol and Drug Abuse Patient Records regulations: The Federal rules restrict any use of the information to criminally investigate or prosecute any alcohol or drug abuse patient.[facility] CenterIn the event this information is protected by the Federal Confidentiality of Alcohol and Drug Abuse Patient Records regulations: The Federal rules restrict any use of the information to criminally investigate or prosecute any alcohol or drug abuse patient.[facility] CenterIn the event this information is protected by the Federal Confidentiality of Alcohol and Drug Abuse Patient Records regulations: The Federal rules restrict any use of the information to criminally investigate or prosecute any alcohol or drug abuse patient.[facility] CenterIn the event this information is protected by the Federal Confidentiality of Alcohol and Drug Abuse Patient Records regulations: The Federal rules restrict any use of the information to criminally investigate or prosecute any alcohol or drug abuse patient.[facility] CenterIn the event this information is protected by the Federal Confidentiality of Alcohol and Drug Abuse Patient Records regulations: The Federal rules restrict any use of the information to criminally investigate or prosecute any alcohol or drug abuse patient.[facility] CenterIn the event this information is protected by the Federal Confidentiality of Alcohol and Drug Abuse Patient Records regulations: The Federal rules restrict any use of the information to criminally investigate or prosecute any alcohol or drug abuse patient.[facility] CenterIn the event this information is protected by the Federal Confidentiality of Alcohol and Drug Abuse Patient Records regulations: The Federal rules restrict any use of the information to criminally investigate or prosecute any alcohol or drug abuse patient.[facility] CenterIn the event this information is protected by the Federal Confidentiality of Alcohol and Drug Abuse Patient Records regulations: The Federal rules restrict any use of the information to criminally investigate or prosecute any alcohol or drug abuse patient.[facility] CenterIn the event this information is protected by the Federal Confidentiality of Alcohol and Drug Abuse Patient Records regulations: The Federal rules restrict any use of the information to criminally investigate or prosecute any alcohol or drug abuse patient.[facility] CenterIn the event this information is protected by the Federal Confidentiality of Alcohol and Drug Abuse Patient Records regulations: The Federal rules restrict any use of the information to criminally investigate or prosecute any alcohol or drug abuse patient.[facility] CenterIn the event this information is protected by the Federal Confidentiality of Alcohol and Drug Abuse Patient Records regulations: The Federal rules restrict any use of the information to criminally investigate or prosecute any alcohol or drug abuse patient.[facility] CenterIn the event this information is protected by the Federal Confidentiality of Alcohol and Drug Abuse Patient Records regulations: The Federal rules restrict any use of the information to criminally investigate or prosecute any alcohol or drug abuse patient.[facility] CenterIn the event this information is protected by the Federal Confidentiality of Alcohol and Drug Abuse Patient Records regulations: The Federal rules restrict any use of the information to criminally investigate or prosecute any alcohol or drug abuse patient.[facility] CenterIn the event this information is protected by the Federal Confidentiality of Alcohol and Drug Abuse Patient Records regulations: The Federal rules restrict any use of the information to criminally investigate or prosecute any alcohol or drug abuse patient.[facility] CenterIn the event this information is protected by the Federal Confidentiality of Alcohol and Drug Abuse Patient Records regulations: The Federal rules restrict any use of the information to criminally investigate or prosecute any alcohol or drug abuse patient.[facility] CenterIn the event this information is protected by the Federal Confidentiality of Alcohol and Drug Abuse Patient Records regulations: The Federal rules restrict any use of the information to criminally investigate or prosecute any alcohol or drug abuse patient.[facility] CenterIn the event this information is protected by the Federal Confidentiality of Alcohol and Drug Abuse Patient Records regulations: The Federal rules restrict any use of the information to criminally investigate or prosecute any alcohol or drug abuse patient.[facility] CenterIn the event this information is protected by the Federal Confidentiality of Alcohol and Drug Abuse Patient Records regulations: The Federal rules restrict any use of the information to criminally investigate or prosecute any alcohol or drug abuse patient.[facility] CenterIn the event this information is protected by the Federal Confidentiality of Alcohol and Drug Abuse Patient Records regulations: The Federal rules restrict any use of the information to criminally investigate or prosecute any alcohol or drug abuse patient.[facility] CenterIn the event this information is protected by the Federal Confidentiality of Alcohol and Drug Abuse Patient Records regulations: The Federal rules restrict any use of the information to criminally investigate or prosecute any alcohol or drug abuse patient.[facility] CenterIn the event this information is protected by the Federal Confidentiality of Alcohol and Drug Abuse Patient Records regulations: The Federal rules restrict any use of the information to criminally investigate or prosecute any alcohol or drug abuse patient.[facility] CenterIn the event this information is protected by the Federal Confidentiality of Alcohol and Drug Abuse Patient Records regulations: The Federal rules restrict any use of the information to criminally investigate or prosecute any alcohol or drug abuse patient.[facility] Care Teams (unrecognized sec tion and content) Spot Machine Operator Relationship Specialty Start Date End Date Jam Thapa MD Primary Staff Physician Cardiology 12/10/18 Spot Machine Operator Relationship Specialty Start Date End Date Jam Thapa MD Primary Staff Physician Cardiology 12/10/18 Spot Machine Operator Relationship Specialty Start Date End Date Jam Thapa MD Primary Staff Physician Cardiology 12/10/18 Spot Machine Operator Relationship Specialty Start Date End Date Louann Moreira MD [address] [place] [address] PCP - General Family Medicine 09/21/24 Spot Machine Operator Relationship Specialty Start Date End Date Louann Moreira MD [address] [place] [address] PCP - General Family Medicine 09/21/24 Spot Machine Operator Relationship Specialty Start Date End Date Louann Moreira MD [address] [place] [address] 22082 PCP - General Family Medicine 09/21/24 Spot Machine Operator Relationship Specialty Start Date End Date Louann Moreira MD [address] [place] [address] 35882 PCP - General Family Medicine 09/21/24 Spot Machine Operator Relationship Specialty Start Date End Date Louann Moreira MD [address] [place] [address] PCP - General Family Medicine 09/21/24 Spot Machine Operator Relationship Specialty Start Date End Date Louann Moreira MD [address] [place] [address] 869[address] PCP - General Family Medicine 09/21/24 Spot Machine Operator Relationship Specialty Start Date End Date Louann Moreira MD [address] [place] [address] 11497 PCP - General Family Medicine 09/21/24 Spot Machine Operator Relationship Specialty Start Date End Date Louann Moreira MD [address] [place] [address] 41713 PCP - General Family Medicine 09/21/24 Spot Machine Operator Relationship Specialty Start Date End Date Louann Moreira MD [address] [place] [address] 86602 PCP - General Family Medicine 09/21/24 Spot Machine Operator Relationship Specialty Start Date End Date Louann Moreira MD [address] [place] [address] PCP - General Family Medicine 09/21/24 Spot Machine Operator Relationship Specialty Start Date End Date Louann Moreira MD [address] [place] [address] 82353 PCP - General Family Medicine 09/21/24 Spot Machine Operator Relationship Specialty Start Date End Date Louann Moreira MD [address] [place] [address] 82095 PCP - General Family Medicine 09/21/24 Spot Machine Operator Relationship Specialty Start Date End Date Louann Moreira MD [address] [place] [address] 84242 PCP - General Family Medicine 09/21/24 Spot Machine Operator Relationship Specialty [place] [address] [place] [address] PCP - General Family Medicine 09/21/24 Spot Machine Operator Relationship Specialty [place] [address] [place] [address] PCP - General Family Medicine 09/21/24 Spot Machine Operator Relationship Specialty [place] [address] [place] [address] PCP - General Family Medicine 09/21/24 Charity Esquivel DO [address] ([address]) [place] [address] Primary Staff Physician Cardiology 12/18/24 Spot Machine Operator Relationship Specialty [place] [address] [place] [address] PCP - General Family Medicine 09/21/24 Charity Esquivel DO [address]) [place], [place] [id number] Primary Staff Physician Cardiology 12/18/24 Spot Machine Operator Relationship Specialty [place] [address] [place] [address] PCP - General Family Medicine 09/21/24 Charity Esquivel DO [address]) [place], [place] [id number] Primary Staff Physician Cardiology 12/18/24 Spot Machine Operator Relationship Specialty [place] [address] [place] [address] PCP - General Family Medicine 09/21/24 Charity Esquivel DO [address] ([address]) [place], [place] [id number] Primary Staff Physician Cardiology 12/18/24 [place] [address] [place] [address] Referring Internal Medicine 03/11/25 Spot Machine Operator Relationship Specialty [place] [address] [place] [address] PCP - General Family Medicine 09/21/24 Charity Esquivel DO [address] ([address]) [place] [address] Primary Staff Physician Cardiology 12/18/24 [place] [address] [place] [address] Referring Internal Medicine 03/11/25 Spot Machine Operator Relationship Specialty [place] [address] [place] [address] PCP - General Family Medicine 09/21/24 Charity Esquivel DO [address]) [place], [place] [phone] Primary Staff Physician Cardiology 12/18/24 [place] [address] [place] [address] Referring Internal Medicine 03/11/25 Spot Machine Operator Relationship Specialty [place] [address] [place] [address] PCP - General Family Medicine 09/21/24 Charity Esquivel DO [address] ([address]) [place], [place] [phone] Primary Staff Physician Cardiology 12/18/24 [place] [address] [place] [address] Referring Internal Medicine 03/11/25 Spot Machine Operator Relationship Specialty [place] [address] [place] [address] PCP - General Family Medicine 09/21/24 Charity Esquivel DO [address] ([address]) [place] [address] Primary Staff Physician Cardiology 12/18/24 [place] [address] [place] [address] Referring Internal Medicine 03/11/25 Spot Machine Operator Relationship Specialty [place] [address] [place] [address] PCP - General Family Medicine 09/21/24 Charity Esquivel DO [address] ([address]) [place] [address] Primary Staff Physician Cardiology 12/18/24 [place] [address] [place] [address] Referring Internal Medicine 03/11/25 Spot Machine Operator Relationship Specialty [place] [address] [place] [address] PCP - General Family Medicine 09/21/24 Charity Esquivel DO [address] ([address]) [place] [address] Primary Staff Physician Cardiology 12/18/24 [place] [address] [place] [address] Referring Internal Medicine 03/11/25 Spot Machine Operator Relationship Specialty [place] [address] [place] [address] PCP - General Family Medicine 09/21/24 Charity Esqiuvel DO [address] ([address]) [place] [address] Primary Staff Physician Cardiology 12/18/24 [place] [address] [place] [address] Referring Internal Medicine 03/11/25 Spot Machine Operator Relationship Specialty [place] [address] [place] [address] PCP - General Family Medicine 09/21/24 Charity Esquivel DO [address] ([address]) [place] [address] Primary Staff Physician Cardiology 12/18/24 [place] [address] [place] [address] Referring Internal Medicine 03/11/25 Spot Machine Operator Relationship Specialty [place] [address] [place] [address] PCP - General Family Medicine 09/21/24 Charity Esquivel DO [address] ([address]) [place] [address] Primary Staff Physician Cardiology 12/18/24 [place] [address] [place] [address] Referring Internal Medicine 03/11/25 Spot Machine Operator Relationship Specialty [place] [address] [place] [address] PCP - General Family Medicine 09/21/24 Charity Esquivel DO [address] ([address]) [place] [address] Primary Staff Physician Cardiology 12/18/24 [place] [address] [place] [address] Referring Internal Medicine 03/11/25 Reason for Visit (unrecogniz ed section and content) Reason Comments Cardiac Rehab 30 day eval Specialty Diagnoses / Procedures Referred By Maricruz lloyd Referred To Contact CARDIAC/PULMONARY REHAB Diagnoses na Procedures na [facility] [address] [address] Phone: tel: fax: Referral ID Status Reason Start Date Expiration Date Visits Re quested Visits Authorized [id number] 1 1 Reason Comments Patient Education Reason Comments Radiology MRI Specialty Diagnoses / Procedures Referred By Maricruz lloyd Referred To Contact Radiology / RADIO MRI MAIN J [facility] Diagnoses Chronic systolic (congestive) heart failure *Dx: Chronic Systonic (congestive) heart failure ICD-10-CM 150.22 Procedures CARDIAC MRI W/WO CONTRAST & FURTHER SEQ MRI WWO CARD [address] [place] [address] [place] [address] [facility] [address] [place] [address] Referral ID Status Reason Start Date Expiration Date Visits Re quested Visits Authorized [id number] Closed 10/01/2023 02/15/2024 1 1 Reason Comments Pearl Maker - Other CHF Reason Comments Patient Update Pre heart transplant eval/consent Specialty Diagnoses / Procedures Referred By Maricruz lloyd Referred To Contact HOSP INPATIENT Diagnoses Cardiogenic shock (HCC) Procedures eval and treat [facility]osp [facility] [address] [place] [address] Referral ID Status Reason Start Date Expiration Date Visits Re quested Visits Authorized [id number] 1 1 Reason Comments Abstract Pre work up tool Reason Comments Heart Transplant Selection Committee AF TC/ LVAD outcome Reason Comments CoPat Start Reason Comments Follow Up Reason Onset Date Comments No Show 03/17/2025 No show Reason Comments Appointment Cardiac Rehab Eval-V A Reason Comments Cardiac Rehab Eval Initial Assessment Specialty Diagnoses / Procedures Referred By Maricruz lloyd Referred To Contact Plastic Surgery / PLASTIC SURGERY Diagnoses Cardiomyopathy, unspecified (HCC) post op Procedures OFFICE/OUTPATIENT ESTABLISHED HIGH MDM 40 MIN POST OP [facility] [address] [place] [address] Phone: tel: Quincy Jones MD [address] [place] [address] Phone: tel: fax: Referral ID Status Reason Start Date Expiration Date V isits Requested Visits Authorized [id number] Authorized 11/20/2024 05/19/2025 99 99 Reason Comments Cardiac Rehab Specialty Diagnoses / Procedures Referred By Contac t Referred To Contact CARDIAC/PULMONARY REHAB Diagnoses Chronic systolic (congestive) heart failure (HCC) DX CHF Procedures PHYS/QHP SVCS OP PULM REHAB W/CONT OXIMTRY MNTR CARDIAC REHAB PHASE [address] [place] [address] [place] [address] Phone: tel: fax: [facility] [address] [address] Phone: tel: fax: Referral ID Status Reason Start Date Expiration Date V isits Requested Visits Authorized [id number] Authorized 04/08/2025 10/05/2025 36 36 FOR RECORDS PERTAINING TO PATIENTS WHO ARE OR HAVE BEEN ENROLLED IN A CHEMICAL DEPENDENCY/SUBSTANCEABUSE PROGRAM, SOME INFORMATION MAY BE OMITTED. This clinical summary was aggregated from multiple sources. Caution should be exercised in using it in the provision of clinical care. This summary normalizes information from multiple sources, and as a consequence, information in this document may materially change the coding, format and clinical context of patient data. In addition, data may be omitted in some cases. CLINICAL DECISIONS SHOULD BE BASED ON THE PRIMARY CLINICAL RECORDS. [employer] provides no warranty or guarantee of the accuracy or completeness of information in this document.
[2025-06-16 12:41] VITALS: BP 100/48; PULSE 73; RESP 16; TEMP 36.3
== END 2025-06-16 23:59 | disposition home or self-care (01) ==
DX: T81.89XA Other complications of procedures, not elsewhere classified, initial encounter (principal); B95.2 Enterococcus as the cause of diseases classified elsewhere
CPT/HCPCS: 96365; A4216; J2406

== ENCOUNTER 2025-06-30 10:44 | Outpatient (CLI) | payer OTHER, SELFPAY ==
[2025-06-30 10:50] VITALS: BP 96/70; PULSE 69; RESP 16; TEMP 35.6; O2SAT 100
[2025-06-30] MEDS: ORITAVANCIN DIPHOSPHATE IV (11:34)
[2025-06-30] MEDS: NORMAL SALINE 0.9% IV (11:34)
[2025-06-30 12:48] VITALS: BP 90/66; PULSE 62; RESP 14; TEMP 36.1; O2SAT 100
== END 2025-06-30 23:59 | disposition home or self-care (01) ==
PROVIDERS: PCP Family Medicine; Visit Provider Internal Medicine Infectious Disease
DX: T81.89XA Other complications of procedures, not elsewhere classified, initial encounter (principal); B95.2 Enterococcus as the cause of diseases classified elsewhere
CPT/HCPCS: 96365; A4216; J2406

== ENCOUNTER 2025-07-14 10:41 | Outpatient (CLI) | payer OTHER, SELFPAY ==
[2025-07-14 10:49] VITALS: BP 110/79; PULSE 59; RESP 16; TEMP 35.8; O2SAT 100
[2025-07-14 11:10] LABS: Hematocrit 36.5 % (40-54); Hemoglobin 12.2 g/dL (13.0-16.5); Mean Corp Hgb Conc 33.4 g/dL (32-36); Mean Corpuscular Volume 85.1 fL (80-94); Mean Platelet Vol. 10.3 fl (6.2-12.0); Platelet Count 204 K/mm3 (150-450); RBC Distribution Width CV 15.9 % (11.6-14.6); RBC Distribution Width SD 48.8 fl (35.1-43.9); Red Blood Count 4.29 M/mm3 (4.6-6.2); White Blood Count 6.4 K/mm3 (4.4-11.0)
[2025-07-14] MEDS: ORITAVANCIN DIPHOSPHATE IV (11:37)
[2025-07-14] MEDS: NORMAL SALINE 0.9% IV (11:37)
[2025-07-14 11:38] LABS: Anion Gap 11 (5-15); BUN 29 mg/dL (4-19); BUN/Creat Ratio 17.5 RATIO (10-20); Calcium,Total 9.8 mg/dL (7.6-11.0); Carbon Dioxide 22.4 mmol/L (21.0-32.0); Chloride 104 mmol/L (98-108); Glucose 103 mg/dL (70-99); Potassium 4.1 mmol/L (3.3-5.1)
[2025-07-14 11:55] LABS: CRP < 3.00 mg/L (0.0-3.0)
[2025-07-14 13:09] VITALS: BP 97/67; PULSE 57; RESP 16; TEMP 35.9; O2SAT 100
== END 2025-07-14 23:59 | disposition home or self-care (01) ==
LOC: MEDOUTP 10:41
PROVIDERS: PCP Family Medicine; Visit Provider Internal Medicine Infectious Disease
DX: T81.89XA Other complications of procedures, not elsewhere classified, initial encounter (principal); B95.2 Enterococcus as the cause of diseases classified elsewhere
CPT/HCPCS: 96365; 36415; 80048; 85027; 86140; J2406

== ENCOUNTER 2025-07-28 10:19 | Outpatient (CLI) | payer OTHER, SELFPAY ==
[2025-07-28 10:33] VITALS: BMI 31.7
[2025-07-28 10:47] VITALS: BP 117/81; PULSE 65; RESP 16; TEMP 36.5; O2SAT 97
[2025-07-28 10:49] LABS: Hematocrit 35.5 % (40-54); Hemoglobin 11.9 g/dL (13.0-16.5); Mean Corp Hgb Conc 33.5 g/dL (32-36); Mean Corpuscular Volume 84.5 fL (80-94); Mean Platelet Vol. 9.7 fl (6.2-12.0); Platelet Count 227 K/mm3 (150-450); RBC Distribution Width CV 15.5 % (11.6-14.6); RBC Distribution Width SD 47.8 fl (35.1-43.9); Red Blood Count 4.20 M/mm3 (4.6-6.2); White Blood Count 7.1 K/mm3 (4.4-11.0)
[2025-07-28 11:14] LABS: Anion Gap 11 (5-15); BUN 29 mg/dL (4-19); BUN/Creat Ratio 14.7 RATIO (10-20); Calcium,Total 9.6 mg/dL (7.6-11.0); Carbon Dioxide 21.3 mmol/L (21.0-32.0); Chloride 100 mmol/L (98-108); Estimated Creatinine Clearance 52.70 ml/min (50-250); Glucose 102 mg/dL (70-99); Potassium 4.4 mmol/L (3.3-5.1)
[2025-07-28 11:15] LABS: CRP < 3.00 mg/L (0.0-3.0)
[2025-07-28] MEDS: ORITAVANCIN DIPHOSPHATE IV (11:18)
[2025-07-28] MEDS: NORMAL SALINE 0.9% IV (11:18)
[2025-07-28 12:45] VITALS: BP 95/72; PULSE 72
== END 2025-07-28 23:59 | disposition home or self-care (01) ==
LOC: MEDOUTP 10:19
PROVIDERS: PCP Family Medicine; Visit Provider Internal Medicine Infectious Disease
DX: T81.89XA Other complications of procedures, not elsewhere classified, initial encounter (principal); B95.2 Enterococcus as the cause of diseases classified elsewhere
CPT/HCPCS: 96365; 36415; 80048; 85027; 86140; A4216; J2406

== ENCOUNTER 2025-08-11 10:18 | Outpatient (CLI) | payer OTHER, SELFPAY ==
[2025-08-11 10:30] VITALS: BP 78/57; PULSE 60; RESP 16; TEMP 35.8; O2SAT 97; BMI 32.0
[2025-08-11 10:56] LABS: Hematocrit 38.5 % (40-54); Hemoglobin 12.8 g/dL (13.0-16.5); Mean Corp Hgb Conc 33.2 g/dL (32-36); Mean Corpuscular Volume 86.9 fL (80-94); Mean Platelet Vol. 9.5 fl (6.2-12.0); Platelet Count 242 K/mm3 (150-450); RBC Distribution Width CV 15.3 % (11.6-14.6); RBC Distribution Width SD 49.0 fl (35.1-43.9); Red Blood Count 4.43 M/mm3 (4.6-6.2); White Blood Count 7.0 K/mm3 (4.4-11.0)
[2025-08-11 11:12] LABS: Anion Gap 12 (5-15); BUN 31 mg/dL (4-19); BUN/Creat Ratio 16.9 RATIO (10-20); CRP < 3.00 mg/L (0.0-3.0); Calcium,Total 9.9 mg/dL (7.6-11.0); Carbon Dioxide 21.3 mmol/L (21.0-32.0); Chloride 102 mmol/L (98-108); Estimated Creatinine Clearance 56.93 ml/min (50-250); Glucose 99 mg/dL (70-99); Potassium 5.3 mmol/L (3.3-5.1)
[2025-08-11] MEDS: NORMAL SALINE 0.9% IV (11:20)
[2025-08-11] MEDS: ORITAVANCIN DIPHOSPHATE IV (11:20)
[2025-08-11 12:41] VITALS: BP 85/62; PULSE 68; RESP 16; TEMP 36.1; O2SAT 100
== END 2025-08-11 23:59 | disposition home or self-care (01) ==
PROVIDERS: PCP Family Medicine; Visit Provider Internal Medicine Infectious Disease
DX: T81.89XA Other complications of procedures, not elsewhere classified, initial encounter (principal); T82.7XXA Infection and inflammatory reaction due to other cardiac and vascular devices, implants and grafts, initial encounter; B95.2 Enterococcus as the cause of diseases classified elsewhere
CPT/HCPCS: 36415; 80048; 85027; 86140; 96365; A4216; J2406